=== PATIENT | male | born 1955 | race Caucasian/White ===

== ENCOUNTER 2019-01-31 09:25 | Day surgery (SDC) | payer MEDICARE ==
[2019-01-31] MEDS ORDERED: PRED5TAB PO (10:47)
[2019-01-31] MEDS ORDERED: LEVE10002 PO (10:47)
[2019-01-31] MEDS ORDERED: SIMV20TA PO (10:47)
[2019-01-31] MEDS ORDERED: FEBU40TA PO (10:47)
[2019-01-31] MEDS ORDERED: FAMO20TA20 (10:47)
[2019-01-31] MEDS ORDERED: FOLI0.4T2 PO (10:47)
[2019-01-31] MEDS ORDERED: TACR1CAP28 PO (10:47)
[2019-01-31] MEDS ORDERED: LISI-604 PO (10:47)
[2019-01-31] MEDS ORDERED: ASPI-1265 PO (10:47)
[2019-01-31] MEDS ORDERED: CARV-49 PO (10:47)
[2019-01-31] MEDS ORDERED: CHOL100046 PO (10:49)
[2019-01-31] MEDS ORDERED: CLOP75TA15 PO (10:49)
[2019-01-31] MEDS ORDERED: CALC-995 (10:49)
--- NOTE | 2019-01-31 15:24 | NUR ---
0930 Patient ambulated safely into [facility]. Patient admitted to outpatient wound care clinic for follow-up visit with physician. Dressing removed, wound cleansed. Patient assessed for changes in conditions, medications and medical history. Patient showed no s/s of distress at time of assessment. 7612 at bedside accompanied by RN. Wounds assessed, time out performed and debridement done today as detailed in the physician progress/procedure note. Plan of care discussed with patient. Dressings placed per MD orders. Patient instructed on the signs and symptoms of infection and to call the Wound Center if any occur or to go to the ED if we are closed: Increased pain in wound Increase in drainage from the wound Redness in the skin surrounding the wound Bleeding from the wound Temperature of 101 or greater Patient instructed that the weight of their body puts a large amount of pressure on their wounds. This pressure keeps the new tissue from growing and inhibits new blood vessels from forming. Explained that, if they continue to bear weight on a body part that has a wound, the time it takes to heal the wound increases, the wound may get worse or the wound may not heal at all. Patient verbalized understanding of all discharge instructions and plan of care. Patient ambulated independently out to [facility] and is in stable condition with no sign or symptom of distress at time of discharge.
== END 2019-01-31 12:00 | disposition home or self-care (01) ==
LOC: WOUND CARE 09:25
PROVIDERS: ATTEND Surgery
DX: L97.411 Non-pressure chronic ulcer of right heel and midfoot limited to breakdown of skin (principal); L97.511 Non-pressure chronic ulcer of other part of right foot limited to breakdown of skin; I77.1 Stricture of artery; I11.0 Hypertensive heart disease with heart failure; I50.9 Heart failure, unspecified; I25.2 Old myocardial infarction; M81.0 Age-related osteoporosis without current pathological fracture; M10.9 Gout, unspecified; Z95.1 Presence of aortocoronary bypass graft; Z86.73 Personal history of transient ischemic attack (TIA), and cerebral infarction without residual deficits; Z94.0 Kidney transplant status
CPT/HCPCS: 97597; A6209; A6021; A6206; A6446

== ENCOUNTER 2019-02-07 09:20 | Day surgery (SDC) | payer MEDICARE ==
[~2019-02-07 09:20] MED LIST: ASPI-1265 PO; CALC-995; CARV-49 PO; CHOL100046 PO; CLOP75TA15 PO; FAMO20TA20; FEBU40TA PO; FOLI0.4T2 PO; LEVE10002 PO; LISI-604 PO; PRED5TAB PO; SIMV20TA PO; TACR1CAP28 PO
[2019-02-07] MEDS ORDERED: LIDOcaine/PRILOcaine 5gm cream TP ONE (10:41)
--- NOTE | 2019-02-07 15:18 | NUR ---
Patient ambulated independently from lobby with a cane. Patient admitted to outpatient wound care clinic for physician visit with Sven Blanton MD. Dressing removed, wound cleansed and Emla cream applied per order. Patient assessed for changes in conditions, medications and medical history. Dr. Blanton at bedside accompanied by RN. Wound assessed, time out performed by MD/RN. Wound debrided as detailed in the physician progress/procedure note. Plan of care discussed with patient. Dressings placed per MD orders. Patient instructed on the signs and symptoms of infection and to call the Wound Center if any occur or to go to the ED if we are closed: Increased pain in wound Increase in drainage from the wound Redness in the skin surrounding the wound Bleeding from the wound Temperature of 101 or greater Patient instructed that the weight of their body puts a large amount of pressure on their wounds. This pressure keeps the new tissue from growing and inhibits new blood vessels from forming. Explained that, if they continue to bear weight on a body part that has a wound, the time it takes to heal the wound increases, the wound may get worse or the wound may not heal at all. Patient verbalized understanding of all discharge instructions and plan of care and ambulated independently out to lobby in stable condition with no sign or symptom of distress at time of discharge. Addendum: 02/07/19 at 1522 by Juju Dupree RN Amended: Links added.
== END 2019-02-07 12:12 | disposition home or self-care (01) ==
LOC: WOUND CARE 09:20
PROVIDERS: ATTEND Surgery
DX: I70.234 Atherosclerosis of native arteries of right leg with ulceration of heel and midfoot (principal); L97.411 Non-pressure chronic ulcer of right heel and midfoot limited to breakdown of skin; L97.512 Non-pressure chronic ulcer of other part of right foot with fat layer exposed; I77.1 Stricture of artery; I11.0 Hypertensive heart disease with heart failure; I50.9 Heart failure, unspecified; I25.2 Old myocardial infarction; M81.0 Age-related osteoporosis without current pathological fracture; M10.9 Gout, unspecified; Z95.1 Presence of aortocoronary bypass graft; Z86.73 Personal history of transient ischemic attack (TIA), and cerebral infarction without residual deficits; Z94.0 Kidney transplant status
CPT/HCPCS: 97597; A6021; A6206; A6446

== ENCOUNTER 2019-03-07 09:55 | Day surgery (SDC) | payer MEDICARE, BC ==
--- NOTE | 2019-03-07 12:00 | NUR ---
Patient ambulated with cane from [facility] and was admitted to outpatient wound care for physician visit with Sven Blanton MD. Dressing removed, wound cleansed and lidocaine applied per order. Patient assessed for changes in conditions, medications and medical history. 1115 - Dr. Blanton at bedside accompanied by RN. Wound assessed, time out performed by MD/RN. Wound debrided as detailed in the physician progress/procedure note. Plan of care discussed with patient. Dressings placed per MD orders. Patient instructed on the signs and symptoms of infection and to call the Wound Center if any occur or to go to the ED if we are closed: Increased pain in wound Increase in drainage from the wound Redness in the skin surrounding the wound Bleeding from the wound Temperature of 101 or greater Patient instructed that the weight of their body puts a large amount of pressure on their wounds. This pressure keeps the new tissue from growing and inhibits new blood vessels from forming. Explained that, if they continue to bear weight on a body part that has a wound, the time it takes to heal the wound increases, the wound may get worse or the wound may not heal at all. Patient verbalized understanding of all discharge instructions and plan of care and ambulated with cane out to [facility] in stable condition with no sign or symptom of distress at time of discharge.
== END 2019-03-07 12:35 | disposition home or self-care (01) ==
LOC: WOUND CARE 09:55
PROVIDERS: ATTEND Surgery
DX: I70.234 Atherosclerosis of native arteries of right leg with ulceration of heel and midfoot (principal); L97.411 Non-pressure chronic ulcer of right heel and midfoot limited to breakdown of skin; L97.512 Non-pressure chronic ulcer of other part of right foot with fat layer exposed; I77.1 Stricture of artery; I11.0 Hypertensive heart disease with heart failure; I50.9 Heart failure, unspecified; I25.2 Old myocardial infarction; M81.0 Age-related osteoporosis without current pathological fracture; M10.9 Gout, unspecified; Z95.1 Presence of aortocoronary bypass graft; Z86.73 Personal history of transient ischemic attack (TIA), and cerebral infarction without residual deficits; Z94.0 Kidney transplant status
CPT/HCPCS: 97597; A4414; A6021; A6206; A6446

== ENCOUNTER 2019-03-14 09:55 | Outpatient (CLI) | payer MEDICARE, BC ==
--- NOTE | 2019-03-14 16:26 | NUR ---
1000 Patient ambulated safely into [facility]. Patient admitted to outpatient wound care clinic for follow-up visit with physician. Dressing removed, wound cleansed. Patient assessed for changes in conditions, medications and medical history. Patient showed no s/s of distress at time of assessment. 1200 at bedside accompanied by RN. Wounds assessed, as detailed in the physician progress/procedure note. No debridement done today. Plan of care discussed with patient. Dressings placed per MD orders. 1600 [facility] Call to refer pt for pain control. No answer will finish referral in the am. Patient instructed on the signs and symptoms of infection and to call the Wound Center if any occur or to go to the ED if we are closed: Increased pain in wound Increase in drainage from the wound Redness in the skin surrounding the wound Bleeding from the wound Temperature of 101 or greater Patient instructed that the weight of their body puts a large amount of pressure on their wounds. This pressure keeps the new tissue from growing and inhibits new blood vessels from forming. Explained that, if they continue to bear weight on a body part that has a wound, the time it takes to heal the wound increases, the wound may get worse or the wound may not heal at all. 1300 Patient verbalized understanding of all discharge instructions and plan of care. Patient ambulated independently out to [facility] and is in stable condition with no sign or symptom of distress at time of discharge.
== END 2019-03-14 13:15 | disposition home or self-care (01) ==
LOC: WOUND CARE 09:55 → EDSTATUS 10:00 → WOUND CARE 13:15
PROVIDERS: ATTEND Surgery
DX: I70.234 Atherosclerosis of native arteries of right leg with ulceration of heel and midfoot (principal); L97.411 Non-pressure chronic ulcer of right heel and midfoot limited to breakdown of skin; L97.512 Non-pressure chronic ulcer of other part of right foot with fat layer exposed; I77.1 Stricture of artery; I11.0 Hypertensive heart disease with heart failure; I50.9 Heart failure, unspecified; I25.2 Old myocardial infarction; M81.0 Age-related osteoporosis without current pathological fracture; M10.9 Gout, unspecified; Z95.1 Presence of aortocoronary bypass graft; Z86.73 Personal history of transient ischemic attack (TIA), and cerebral infarction without residual deficits; Z94.0 Kidney transplant status
CPT/HCPCS: A6222; G0463; A4649; A4663; A6234; A6446

== ENCOUNTER 2019-03-21 09:50 | Day surgery (SDC) | payer MEDICARE, BC ==
[2019-03-21] MEDS ORDERED: LIDOcaine 2% 5ml jelly ONE (10:51)
[2019-03-21] MEDS ORDERED: LIDOcaine 1%/PF 5ML 10 MG/ML VIAL ONE (11:36)
--- NOTE | 2019-03-21 14:41 | NUR ---
Patient arrived safely into [facility] ambulated with cane accompanied by daughter. Patient admitted to outpatient wound care clinic for visit with Sven Blanton MD. Dressing removed, wound cleansed and lidocaine applied per order. Patient assessed and medications and medical history reviewed. Dr. Blanton at bedside accompanied by RN. Wound assessed, time out performed by MD/RN. Wound debrided as detailed in the physician progress/procedure note. Plan of care discussed with patient. Dressings placed per MD orders. Patient instructed on the signs and symptoms of infection and to call the Wound Center if any occur or to go to the ED if we are closed: Increased pain in wound Increase in drainage from the wound Redness in the skin surrounding the wound Bleeding from the wound Temperature of 101 or greater Patient instructed that the weight of their body puts a large amount of pressure on their wounds. This pressure keeps the new tissue from growing and inhibits new blood vessels from forming. Explained that, if they continue to bear weight on a body part that has a wound, the time it takes to heal the wound increases, the wound may get worse or the wound may not heal at all. Patient verbalized understanding of all discharge instructions and plan of care. Patient left in stable condition with no sign or symptom of distress at time of discharge. Addendum: 03/21/19 at 1445 by Kranthi Lundberg RN Amended: Links added.
== END 2019-03-21 12:43 | disposition home or self-care (01) ==
LOC: WOUND CARE 09:50
PROVIDERS: ATTEND Surgery
DX: I70.234 Atherosclerosis of native arteries of right leg with ulceration of heel and midfoot (principal); L97.411 Non-pressure chronic ulcer of right heel and midfoot limited to breakdown of skin; I70.235 Atherosclerosis of native arteries of right leg with ulceration of other part of foot; L97.512 Non-pressure chronic ulcer of other part of right foot with fat layer exposed; I77.1 Stricture of artery; I11.0 Hypertensive heart disease with heart failure; I50.9 Heart failure, unspecified; I25.2 Old myocardial infarction; M81.0 Age-related osteoporosis without current pathological fracture; M10.9 Gout, unspecified; Z95.1 Presence of aortocoronary bypass graft; Z86.73 Personal history of transient ischemic attack (TIA), and cerebral infarction without residual deficits; Z94.0 Kidney transplant status
CPT/HCPCS: A4663; A6021

== ENCOUNTER 2019-03-28 09:55 | Day surgery (SDC) | payer MEDICARE, BC ==
[2019-03-28] MEDS ORDERED: LIDOcaine 2% 5ml jelly ONE (11:18)
--- NOTE | 2019-03-28 15:52 | NUR ---
Patient ambulated independently from [facility] with a cane. Patient was admitted to outpatient wound care for physician visit with Sven Blanton MD. Dressing removed, wound cleansed and lidocaine applied per order. Patient assessed for changes in conditions, medications and medical history. Dr. Blanton at bedside accompanied by RN. Wound assessed, time out performed by MD/RN. Wound debrided as detailed in the physician progress/procedure note. Plan of care discussed with patient. Dressings placed per MD orders. Patient instructed on the signs and symptoms of infection and to call the Wound Center if any occur or to go to the ED if we are closed: Increased pain in wound Increase in drainage from the wound Redness in the skin surrounding the wound Bleeding from the wound Temperature of 101 or greater Patient instructed that the weight of their body puts a large amount of pressure on their wounds. This pressure keeps the new tissue from growing and inhibits new blood vessels from forming. Explained that, if they continue to bear weight on a body part that has a wound, the time it takes to heal the wound increases, the wound may get worse or the wound may not heal at all. Patient verbalized understanding of all discharge instructions and plan of care and ambulated independently out to [facility] in stable condition with no sign or symptom of distress at time of discharge. Addendum: 03/28/19 at 1554 by Juju Dupree RN Amended: Links added.
== END 2019-03-28 12:12 | disposition home or self-care (01) ==
LOC: WOUND CARE 09:55
PROVIDERS: ATTEND Surgery
DX: I70.234 Atherosclerosis of native arteries of right leg with ulceration of heel and midfoot (principal); L97.411 Non-pressure chronic ulcer of right heel and midfoot limited to breakdown of skin; I70.235 Atherosclerosis of native arteries of right leg with ulceration of other part of foot; L97.512 Non-pressure chronic ulcer of other part of right foot with fat layer exposed; I77.1 Stricture of artery; I11.0 Hypertensive heart disease with heart failure; I50.9 Heart failure, unspecified; I25.2 Old myocardial infarction; M81.0 Age-related osteoporosis without current pathological fracture; M10.9 Gout, unspecified; Z95.1 Presence of aortocoronary bypass graft; Z86.73 Personal history of transient ischemic attack (TIA), and cerebral infarction without residual deficits; Z94.0 Kidney transplant status
CPT/HCPCS: 97597; A4663; A6196; A6234; A6446

== ENCOUNTER 2019-04-04 09:42 | Outpatient (CLI) | payer MEDICARE, BC ==
[2019-04-04] MEDS ORDERED: LIDOcaine 2% 5ml jelly ONE (11:29)
== END 2019-04-04 12:45 | disposition home or self-care (01) ==
LOC: WOUND CARE 09:42 → EDSTATUS 10:00 → WOUND CARE 12:45
PROVIDERS: ATTEND Surgery
DX: I70.234 Atherosclerosis of native arteries of right leg with ulceration of heel and midfoot (principal); L97.411 Non-pressure chronic ulcer of right heel and midfoot limited to breakdown of skin; I70.235 Atherosclerosis of native arteries of right leg with ulceration of other part of foot; L97.512 Non-pressure chronic ulcer of other part of right foot with fat layer exposed; I77.1 Stricture of artery; I11.0 Hypertensive heart disease with heart failure; I50.9 Heart failure, unspecified; I25.2 Old myocardial infarction; M81.0 Age-related osteoporosis without current pathological fracture; M10.9 Gout, unspecified; Z95.1 Presence of aortocoronary bypass graft; Z86.73 Personal history of transient ischemic attack (TIA), and cerebral infarction without residual deficits; Z94.0 Kidney transplant status
CPT/HCPCS: A4663; A6212; A6234; A6446; G0463

== ENCOUNTER 2019-04-11 09:30 | Outpatient (CLI) | payer MEDICARE, BC | END 2019-04-11 13:00 | disposition home or self-care (01) | LOC: WOUND CARE 09:30 → EDSTATUS 10:00 → WOUND CARE 13:00 | PROVIDERS: ATTEND Surgery | DX: I70.234 Atherosclerosis of native arteries of right leg with ulceration of heel and midfoot (principal); L97.411 Non-pressure chronic ulcer of right heel and midfoot limited to breakdown of skin; I70.235 Atherosclerosis of native arteries of right leg with ulceration of other part of foot; L97.512 Non-pressure chronic ulcer of other part of right foot with fat layer exposed; I77.1 Stricture of artery; I11.0 Hypertensive heart disease with heart failure; I50.9 Heart failure, unspecified; I25.2 Old myocardial infarction; M81.0 Age-related osteoporosis without current pathological fracture; M10.9 Gout, unspecified; Z95.1 Presence of aortocoronary bypass graft; Z86.73 Personal history of transient ischemic attack (TIA), and cerebral infarction without residual deficits; Z94.0 Kidney transplant status | CPT/HCPCS: A4663; A6234; A6446; G0463 ==

== ENCOUNTER 2019-04-18 09:25 | Day surgery (SDC) | payer MEDICARE, BC ==
[2019-04-18] MEDS ORDERED: LIDOcaine 2% 5ml jelly ONE (09:54)
== END 2019-04-18 11:15 | disposition home or self-care (01) ==
LOC: WOUND CARE 09:25
PROVIDERS: ATTEND Surgery
DX: I70.234 Atherosclerosis of native arteries of right leg with ulceration of heel and midfoot (principal); L97.411 Non-pressure chronic ulcer of right heel and midfoot limited to breakdown of skin; I70.235 Atherosclerosis of native arteries of right leg with ulceration of other part of foot; L97.512 Non-pressure chronic ulcer of other part of right foot with fat layer exposed; I77.1 Stricture of artery; I11.0 Hypertensive heart disease with heart failure; I50.9 Heart failure, unspecified; I25.2 Old myocardial infarction; M81.0 Age-related osteoporosis without current pathological fracture; M10.9 Gout, unspecified; Z95.1 Presence of aortocoronary bypass graft; Z86.73 Personal history of transient ischemic attack (TIA), and cerebral infarction without residual deficits; Z94.0 Kidney transplant status
CPT/HCPCS: 97597; A4663; A6234; A6446

== ENCOUNTER 2019-04-25 09:40 | Day surgery (SDC) | payer MEDICARE, BC ==
[2019-04-25] MEDS ORDERED: LIDOcaine 2% 5ml jelly ONE ×2 (10:25→10:44)
== END 2019-04-25 11:21 | disposition home or self-care (01) ==
LOC: WOUND CARE 09:40
PROVIDERS: ATTEND Surgery
DX: I70.234 Atherosclerosis of native arteries of right leg with ulceration of heel and midfoot (principal); L97.412 Non-pressure chronic ulcer of right heel and midfoot with fat layer exposed; I70.235 Atherosclerosis of native arteries of right leg with ulceration of other part of foot; L97.512 Non-pressure chronic ulcer of other part of right foot with fat layer exposed; I77.1 Stricture of artery; I11.0 Hypertensive heart disease with heart failure; M81.0 Age-related osteoporosis without current pathological fracture; I50.9 Heart failure, unspecified; I25.2 Old myocardial infarction; M10.9 Gout, unspecified; Z95.1 Presence of aortocoronary bypass graft; Z86.73 Personal history of transient ischemic attack (TIA), and cerebral infarction without residual deficits; Z94.0 Kidney transplant status
CPT/HCPCS: A4663; A6021; A6154; A6212; A6446

== ENCOUNTER 2019-05-02 09:18 | Day surgery (SDC) | payer MEDICARE, BC ==
[2019-05-02] MEDS ORDERED: LIDOcaine 2% 5ml jelly ONE (10:17)
== END 2019-05-02 11:21 | disposition home or self-care (01) ==
LOC: WOUND CARE 09:18
PROVIDERS: ATTEND Surgery
DX: I70.234 Atherosclerosis of native arteries of right leg with ulceration of heel and midfoot (principal); L97.412 Non-pressure chronic ulcer of right heel and midfoot with fat layer exposed; I70.235 Atherosclerosis of native arteries of right leg with ulceration of other part of foot; L97.512 Non-pressure chronic ulcer of other part of right foot with fat layer exposed; I77.1 Stricture of artery; M81.0 Age-related osteoporosis without current pathological fracture; I50.9 Heart failure, unspecified; I25.2 Old myocardial infarction; M10.9 Gout, unspecified; Z95.1 Presence of aortocoronary bypass graft; Z86.73 Personal history of transient ischemic attack (TIA), and cerebral infarction without residual deficits; Z94.0 Kidney transplant status
CPT/HCPCS: 97597; A6209; A4663; A6154; A6446

== ENCOUNTER 2019-05-09 09:20 | Day surgery (SDC) | payer MEDICARE, BC ==
[2019-05-09] MEDS ORDERED: LIDOcaine 2% 5ml jelly ONE (09:33)
== END 2019-05-09 11:00 | disposition home or self-care (01) ==
LOC: WOUND CARE 09:20
PROVIDERS: ATTEND Surgery
DX: I70.234 Atherosclerosis of native arteries of right leg with ulceration of heel and midfoot (principal); L97.412 Non-pressure chronic ulcer of right heel and midfoot with fat layer exposed; I70.235 Atherosclerosis of native arteries of right leg with ulceration of other part of foot; L97.512 Non-pressure chronic ulcer of other part of right foot with fat layer exposed; I77.1 Stricture of artery; M81.0 Age-related osteoporosis without current pathological fracture; I11.0 Hypertensive heart disease with heart failure; I50.9 Heart failure, unspecified; I25.2 Old myocardial infarction; M10.9 Gout, unspecified; Z95.1 Presence of aortocoronary bypass graft; Z86.73 Personal history of transient ischemic attack (TIA), and cerebral infarction without residual deficits; Z94.0 Kidney transplant status
CPT/HCPCS: 97597; A6209; A4663; A6021; A6154

== ENCOUNTER 2019-05-16 09:20 | Day surgery (SDC) | payer MEDICARE, BC ==
[2019-05-16] MEDS ORDERED: LIDOcaine 2% 5ml jelly ONE (10:01)
== END 2019-05-16 11:10 | disposition home or self-care (01) ==
LOC: WOUND CARE 09:20
PROVIDERS: ATTEND Surgery
DX: I70.234 Atherosclerosis of native arteries of right leg with ulceration of heel and midfoot (principal); L97.412 Non-pressure chronic ulcer of right heel and midfoot with fat layer exposed; I70.235 Atherosclerosis of native arteries of right leg with ulceration of other part of foot; L97.512 Non-pressure chronic ulcer of other part of right foot with fat layer exposed; I77.1 Stricture of artery; M81.0 Age-related osteoporosis without current pathological fracture; I11.0 Hypertensive heart disease with heart failure; I50.9 Heart failure, unspecified; I25.2 Old myocardial infarction; M10.9 Gout, unspecified; Z95.1 Presence of aortocoronary bypass graft; Z86.73 Personal history of transient ischemic attack (TIA), and cerebral infarction without residual deficits; Z94.0 Kidney transplant status
CPT/HCPCS: 97597; A6209; A4663; A6021; A6446

== ENCOUNTER 2019-05-23 09:30 | Day surgery (SDC) | payer MEDICARE, BC ==
[2019-05-23] MEDS ORDERED: LIDOcaine 2% 5ml jelly ONE ×2 (10:07→10:55)
== END 2019-05-23 11:06 | disposition home or self-care (01) ==
LOC: WOUND CARE 09:30
PROVIDERS: ATTEND Surgery
DX: I70.234 Atherosclerosis of native arteries of right leg with ulceration of heel and midfoot (principal); L97.412 Non-pressure chronic ulcer of right heel and midfoot with fat layer exposed; I70.235 Atherosclerosis of native arteries of right leg with ulceration of other part of foot; L97.512 Non-pressure chronic ulcer of other part of right foot with fat layer exposed; I77.1 Stricture of artery; M81.0 Age-related osteoporosis without current pathological fracture; I11.0 Hypertensive heart disease with heart failure; I50.9 Heart failure, unspecified; I25.2 Old myocardial infarction; M10.9 Gout, unspecified; Z95.1 Presence of aortocoronary bypass graft; Z86.73 Personal history of transient ischemic attack (TIA), and cerebral infarction without residual deficits; Z94.0 Kidney transplant status
CPT/HCPCS: 97597; A4663; A6021; A6154; A6212; A6446

== ENCOUNTER 2019-06-06 09:30 | Day surgery (SDC) | payer MEDICARE, BC ==
[2019-06-06] MEDS ORDERED: LIDOcaine 2% 5ml jelly ONE ×2 (09:54→10:13)
== END 2019-06-06 11:05 | disposition home or self-care (01) ==
LOC: WOUND CARE 09:30
PROVIDERS: ATTEND Surgery
DX: I70.234 Atherosclerosis of native arteries of right leg with ulceration of heel and midfoot (principal); L97.412 Non-pressure chronic ulcer of right heel and midfoot with fat layer exposed; I70.235 Atherosclerosis of native arteries of right leg with ulceration of other part of foot; L97.512 Non-pressure chronic ulcer of other part of right foot with fat layer exposed; I77.1 Stricture of artery; M81.0 Age-related osteoporosis without current pathological fracture; I11.0 Hypertensive heart disease with heart failure; I50.9 Heart failure, unspecified; I25.2 Old myocardial infarction; M10.9 Gout, unspecified; Z95.1 Presence of aortocoronary bypass graft; Z86.73 Personal history of transient ischemic attack (TIA), and cerebral infarction without residual deficits; Z94.0 Kidney transplant status
CPT/HCPCS: 97597; A6209; A4663; A6021; A6154; A6446

== ENCOUNTER 2019-06-12 09:20 | Day surgery (SDC) | payer MEDICARE, BC ==
[2019-06-12] MEDS ORDERED: LIDOcaine 2% 5ml jelly ONE (10:14)
== END 2019-06-12 12:08 | disposition home or self-care (01) ==
LOC: WOUND CARE 09:20
PROVIDERS: ATTEND Surgery
DX: I70.234 Atherosclerosis of native arteries of right leg with ulceration of heel and midfoot (principal); L97.412 Non-pressure chronic ulcer of right heel and midfoot with fat layer exposed; I70.235 Atherosclerosis of native arteries of right leg with ulceration of other part of foot; L97.512 Non-pressure chronic ulcer of other part of right foot with fat layer exposed; I77.1 Stricture of artery; M81.0 Age-related osteoporosis without current pathological fracture; I11.0 Hypertensive heart disease with heart failure; I50.9 Heart failure, unspecified; I25.2 Old myocardial infarction; M10.9 Gout, unspecified; Z95.1 Presence of aortocoronary bypass graft; Z86.73 Personal history of transient ischemic attack (TIA), and cerebral infarction without residual deficits; Z94.0 Kidney transplant status
CPT/HCPCS: 15275; A6209; A6222; Q4160; A4663; A6250; A6446

== ENCOUNTER 2019-06-23 13:38 | Inpatient (IN) | payer MEDICARE, BC ==
[~2019-06-23] VITALS: Ht 175.3 cm; Wt 95.5 kg
[2019-06-23] MEDS ORDERED: normal saline 1000ML IV soln IVB ONE (14:40)
[2019-06-23 15:06] LABS: BASOPHILS % (AUTO) 0.5 % (0-1); EOSINOPHILS % (AUTO) 0.4 % (0-6); HEMATOCRIT 50.4 % (42.0-52.0); HEMOGLOBIN 16.8 g/dl (14.0-17.9); LYMPHOCYTES # (AUTO) 0.3 X10'3 (1.1-4.8); LYMPHOCYTES % (AUTO) 3.6 % (21-51); MEAN CORPUSCULAR HEMOGLOBIN 29.1 PG (27.0-31.0); MEAN CORPUSCULAR HGB CONC 33.3 g/dL (33.0-36.5); MEAN CORPUSCULAR VOLUME 87.4 FL (78-98); MEAN PLATELET VOLUME 9.9 FL (7.4-10.4); MONOCYTES # (AUTO) 0.9 X10'3 (0-0.9); NEUTROPHILS % (AUTO) 85.5 % (42-75); PLATELET COUNT 169 X10'3 (140-440); RED BLOOD COUNT 5.76 X10'6 (4.70-6.10); WHITE BLOOD COUNT 9.3 X10'3 (4.5-11.0)
[2019-06-23 15:19] LABS: ALANINE AMINOTRANSFERASE 12 U/L (12-78); ALBUMIN 3.8 G/DL (3.4-5.0); ALBUMIN/GLOBULIN RATIO 0.8 (1.1-1.5); ALKALINE PHOSPHATASE 77 IU/L (46-116); ANION GAP 17 (8-16); ASPARTATE AMINO TRANSFERASE 24 U/L (10-37); BILIRUBIN,TOTAL 0.8 MG/DL (0.1-1.0); BLOOD UREA NITROGEN 133 MG/DL (7-18); BUN/CREATININE RATIO 32.8 (5.4-32.0); CALCIUM 6.3 MG/DL (8.5-10.1); CHLORIDE 99 MMOL/L (99-107); CREATININE 4.06 MG/DL (0.60-1.10); GLUCOSE 175 MG/DL (70-104); SODIUM 136 MMOL/L (135-145); TOTAL CARBON DIOXIDE 19.6 MMOL/L (24-32); TOTAL PROTEIN 8.3 G/DL (6.4-8.2); eGFR 15 ML/MIN
[2019-06-23 15:20] LABS: ETHANOL < 0.010 GM/DL (0.0-0.010)
[2019-06-23 16:03] LABS: CLARITY,URINE CLEAR (Clear); COLOR,URINE YELLOW (Yellow); GLUCOSE, URINE NEGATIVE (Neg); KETONES,URINE NEGATIVE (Neg); LEUKOCYTE ESTERASE ,URINE NEGATIVE (Neg); NITRITES, URINE NEGATIVE (Neg); OCCULT BLOOD,URINE NEGATIVE (Neg); PROTEIN,URINE NEGATIVE (Neg); UROBILINOGEN,URINE 0.2 E.U/dL (0.2-1.0)
[2019-06-23 16:04] LABS: UA COLLECTION TYPE STRAIGHT CATH
[2019-06-23 16:17] LABS: URINE AMPHETAMINE SCREEN NEGATIVE (Neg); URINE BARBITUATE SCREEN NEGATIVE (Neg); URINE BENZODIAZEPINES SCREEN NEGATIVE (Neg); URINE CANNABINOID SCREEN POSITIVE (Neg); URINE COCAINE SCREEN NEGATIVE (Neg); URINE METHADONE SCREEN NEGATIVE (Neg); URINE OPIATE SCREEN POSITIVE (Neg); URINE PHENCYCLIDINE SCREEN NEGATIVE (Neg)
[2019-06-23 16:55] LABS: TOTAL PROTEIN,URINE RANDOM 28.7 MG/DL
[2019-06-23] MEDS: calcium carbonate 500mg tablet PO SCH ×2 (17:00→22:10)
[2019-06-23] MEDS ORDERED: acetaminophen 325mg tablet PO PRN (17:05)
[2019-06-23] MEDS ORDERED: sodium bicarbonate (8.4%) inj. 150 MEQ in dextrose 5%-water 1,000 ML IV SCH (17:05)
[2019-06-23] MEDS ORDERED: ondansetron/PF 4mg/2ml inj IV PRN (17:05)
[2019-06-23] MEDS ORDERED: FOLI0.4T2 PO (17:35)
[2019-06-23] MEDS ORDERED: FURO-150 PO (17:35)
[2019-06-23] MEDS: sodium bicarbonate (8.4%) inj. 75 MEQ in dextrose 5%-water 500 ML IV SCH ×2 (17:37→22:10)
[2019-06-23] MEDS: methylPREDNISolone sod succ 125mg/2ml vial IV SCH ×2 (17:37→23:12)
--- NOTE | 2019-06-23 19:44 | NUR ---
CALLED VIVIANA WEI [phone] FOR PAIN MED
[2019-06-23] MEDS: levetiracetam 250mg tablet PO SCH (20:06)
[2019-06-23] MEDS: carvedilol 6.25mg tablet PO SCH (20:06)
[2019-06-23] MEDS: tacrolimus anhydrous 1mg capsule PO SCH (20:07)
[2019-06-23] MEDS: heparin, porcine 5000 units/ml vial SQ SCH (20:14)
--- NOTE | 2019-06-23 20:47 | NUR ---
ESTEVAN [phone]
[2019-06-23] MEDS: FEBUXOSTAT PO SCH (21:00)
--- NOTE | 2019-06-23 21:00 | NUR ---
Patient in room [facility]. I have received report from Alejandra, ED RN and had the opportunity to ask questions and assume patient care.
[2019-06-23] MEDS: lisinopril 5mg tablet PO SCH (21:09)
[2019-06-23] MEDS: clopidogrel 75mg tablet PO SCH (21:09)
[2019-06-23 21:50] VITALS: BP 123/82
--- NOTE | 2019-06-23 22:25 | NUR ---
Talked to Joni Moreno NP regarding patient troponin series. 0HR: 0.05, 6HR: 0.06. 3HR level was missed. Okay to redraw troponin level with morning lab and cancelled 0200 draw. Pain 7/10 in right foot. Informed Joni Moreno that pt cannot take NSAIDs. Pts allergy in chart states morphine, but pt states there is no allergy.
[2019-06-23] MEDS: HYDROcodone/acetaminophen 5mg/325mg tablet PO PRN (23:11)
[2019-06-24] VITALS: BP 111/73
[2019-06-24] MEDS: sodium bicarbonate (8.4%) inj. 75 MEQ in dextrose 5%-water 500 ML IV SCH ×3 (03:00→12:50)
[2019-06-24] MEDS: HYDROcodone/acetaminophen 5mg/325mg tablet PO PRN ×2 (04:02→08:48)
[2019-06-24 05:28] LABS: HEMATOCRIT 45.8 % (42.0-52.0); HEMOGLOBIN 15.3 g/dl (14.0-17.9); MEAN CORPUSCULAR HGB CONC 33.4 g/dL (33.0-36.5)
[2019-06-24 05:32] LABS: BASOPHILS % (AUTO) 0.1 % (0-1); EOSINOPHILS % (AUTO) 0 % (0-6); LYMPHOCYTES # (AUTO) 0.1 X10'3 (1.1-4.8); LYMPHOCYTES % (AUTO) 3.6 % (21-51); MEAN CORPUSCULAR HEMOGLOBIN 29.3 PG (27.0-31.0); MEAN CORPUSCULAR VOLUME 87.8 FL (78-98); MEAN PLATELET VOLUME 9.9 FL (7.4-10.4); NEUTROPHILS # (AUTO) 3.1 X10'3 (1.8-7.7); NEUTROPHILS % (AUTO) 95.3 % (42-75); PLATELET COUNT 173 X10'3 (140-440); RED BLOOD COUNT 5.22 X10'6 (4.70-6.10); RED CELL DISTRIBUTION WIDTH 17.1 % (11.5-14.5); WHITE BLOOD COUNT 3.2 X10'3 (4.5-11.0)
[2019-06-24 05:39] LABS: ALANINE AMINOTRANSFERASE 13 U/L (12-78); ALBUMIN 3.3 G/DL (3.4-5.0); ALBUMIN/GLOBULIN RATIO 0.8 (1.1-1.5); ALKALINE PHOSPHATASE 68 IU/L (46-116); ANION GAP 14 (8-16); ASPARTATE AMINO TRANSFERASE 19 U/L (10-37); BILIRUBIN,TOTAL 0.8 MG/DL (0.1-1.0); BLOOD UREA NITROGEN 110 MG/DL (7-18); BUN/CREATININE RATIO 33.4 (5.4-32.0); CALCIUM 6.2 MG/DL (8.5-10.1); CHLORIDE 97 MMOL/L (99-107); CREATININE 3.29 MG/DL (0.60-1.10); GLUCOSE 349 MG/DL (70-104); MAGNESIUM 1.8 MG/DL (1.5-2.4); PHOSPHORUS 4.7 MG/DL (2.3-4.5); POTASSIUM 4.1 MMOL/L (3.5-5.1); SODIUM 137 MMOL/L (135-145); TOTAL CARBON DIOXIDE 26.3 MMOL/L (24-32); TOTAL PROTEIN 7.4 G/DL (6.4-8.2); TROPONIN I 0.06 NG/ML (0.0-0.05); eGFR 19 ML/MIN
--- NOTE | 2019-06-24 06:40 | NUR ---
Patient in room [facility]. I have received report from Darcie RN and Iza RN and had the opportunity to ask questions and assume patient care.
--- NOTE | 2019-06-24 06:43 | NUR ---
Problems reprioritized. Patient report given, questions answered & plan of care reviewed with SERGIO Martínez.
--- NOTE | 2019-06-24 07:25 | NUR ---
Patient in room [facility]. I have received report from lisa Henderson and had the opportunity to ask questions and assume patient care.
[2019-06-24] MEDS: methylPREDNISolone sod succ 125mg/2ml vial IV SCH ×2 (07:30→16:14)
[2019-06-24 07:40] LABS: PLATELET ESTIMATE NORMAL
[2019-06-24 07:41] LABS: GIANT PLATELET FEW; LARGE PLATELETS FEW
[2019-06-24] MEDS: aspirin 81mg tab.chew PO SCH (07:44)
[2019-06-24] MEDS: atorvastatin 20mg tablet PO SCH (07:45)
[2019-06-24] MEDS: famotidine 20mg tablet PO SCH ×3 (07:45→16:15)
[2019-06-24] MEDS: folic acid 0.4mg tablet PO SCH (07:45)
[2019-06-24] MEDS: carvedilol 6.25mg tablet PO SCH ×2 (07:46→20:10)
[2019-06-24] MEDS: vitamin D (cholecalciferol) 1,000 unit tablet PO SCH (07:47)
[2019-06-24] MEDS: levetiracetam 250mg tablet PO SCH ×2 (07:47→20:11)
[2019-06-24] MEDS: heparin, porcine 5000 units/ml vial SQ SCH ×2 (07:48→20:12)
[2019-06-24 08:00] VITALS: BP 127/78
--- NOTE | 2019-06-24 08:03 | NUR ---
Patient in room [facility]. I have received report from Darcie and had the opportunity to ask questions and assume patient care.
[2019-06-24] MEDS: tacrolimus anhydrous 1mg capsule PO SCH ×2 (08:16→20:11)
--- NOTE | 2019-06-24 10:32 | NUR ---
Student Medication Administration: For this medication-pass time frame, all medication were reviewed, dispensed, administered and documented per hospital policy by Francie nursing attendant.
[2019-06-24 11:19] VITALS: BP 107/56
--- NOTE | 2019-06-24 11:42 | NUR ---
Student documentation: I have reviewed and agree with all interventions, assessments performed and documented by Francie, nursing manager.
--- NOTE | 2019-06-24 12:06 | NUR ---
Patient report given, questions answered & plan of care reviewed with Leila nursing department chairperson.
[2019-06-24] MEDS: acetaminophen w/codeine (30MG) #3 tablet PO PRN (12:49)
--- NOTE | 2019-06-24 16:09 | NUR ---
reviewed nursing center tutor charting
[2019-06-24] MEDS: normal saline 1000ml 1,000 ML IV SCH (16:36)
[2019-06-24] MEDS: HYDROcodone/acetaminophen 10/325mg tab PO PRN (17:50)
--- NOTE | 2019-06-24 18:17 | NUR ---
Student documentation: I have reviewed and agree with all interventions, assessments performed and documented by Nat Brito.
--- NOTE | 2019-06-24 18:32 | NUR ---
Problems reprioritized. Patient report given, questions answered & plan of care reviewed with SERGIO Liao.
[2019-06-24 18:40] VITALS: BP 126/81
[2019-06-24] MEDS: calcium carbonate 500mg tablet PO SCH (20:10)
[2019-06-24] MEDS: lisinopril 5mg tablet PO SCH (20:10)
[2019-06-24] MEDS: clopidogrel 75mg tablet PO SCH (20:13)
[2019-06-24] MEDS: FEBUXOSTAT PO SCH (20:24)
[2019-06-25] VITALS: BP 114/75
[2019-06-25] MEDS: normal saline 1000ml 1,000 ML IV SCH ×2 (04:19→16:15)
[2019-06-25] MEDS: HYDROcodone/acetaminophen 10/325mg tab PO PRN ×2 (04:22→14:05)
[2019-06-25 05:00] LABS: BASOPHILS % (AUTO) 0.1 % (0-1); EOSINOPHILS % (AUTO) 0 % (0-6); HEMATOCRIT 45.8 % (42.0-52.0); LYMPHOCYTES # (AUTO) 0.2 X10'3 (1.1-4.8); LYMPHOCYTES % (AUTO) 1.9 % (21-51); MEAN CORPUSCULAR HEMOGLOBIN 29.1 PG (27.0-31.0); MEAN CORPUSCULAR HGB CONC 32.8 g/dL (33.0-36.5); MEAN CORPUSCULAR VOLUME 88.7 FL (78-98); MEAN PLATELET VOLUME 10.3 FL (7.4-10.4); MONOCYTES # (AUTO) 0.6 X10'3 (0-0.9); MONOCYTES % (AUTO) 5.1 % (2-12); NEUTROPHILS # (AUTO) 10.5 X10'3 (1.8-7.7); NEUTROPHILS % (AUTO) 92.9 % (42-75); PLATELET COUNT 195 X10'3 (140-440); RED BLOOD COUNT 5.16 X10'6 (4.70-6.10); RED CELL DISTRIBUTION WIDTH 16.9 % (11.5-14.5); WHITE BLOOD COUNT 11.3 X10'3 (4.5-11.0)
[2019-06-25 05:25] LABS: ALANINE AMINOTRANSFERASE 20 U/L (12-78); ALBUMIN 3.3 G/DL (3.4-5.0); ALBUMIN/GLOBULIN RATIO 0.8 (1.1-1.5); ALKALINE PHOSPHATASE 62 IU/L (46-116); ANION GAP 15 (8-16); ASPARTATE AMINO TRANSFERASE 28 U/L (10-37); BILIRUBIN,TOTAL 0.8 MG/DL (0.1-1.0); BLOOD UREA NITROGEN 94 MG/DL (7-18); BUN/CREATININE RATIO 30.4 (5.4-32.0); CALCIUM 6.1 MG/DL (8.5-10.1); CHLORIDE 96 MMOL/L (99-107); CREATININE 3.09 MG/DL (0.60-1.10); GLUCOSE 293 MG/DL (70-104); MAGNESIUM 1.7 MG/DL (1.5-2.4); PHOSPHORUS 4.8 MG/DL (2.3-4.5); SODIUM 141 MMOL/L (135-145); TOTAL CARBON DIOXIDE 29.6 MMOL/L (24-32); TOTAL PROTEIN 7.3 G/DL (6.4-8.2); eGFR 21 ML/MIN
[2019-06-25 05:26] LABS: POTASSIUM 3.9 MMOL/L (3.5-5.1)
--- NOTE | 2019-06-25 06:15 | NUR ---
Patient in room [facility]. I have received report from SERGIO Liao and had the opportunity to ask questions and assume patient care.
--- NOTE | 2019-06-25 06:46 | NUR ---
Patient in room [facility]. I have received report from Tanya and had the opportunity to ask questions and assume patient care. Addendum: 06/25/19 at 0647 by Mendel MORENO Amended: Links added.
--- NOTE | 2019-06-25 06:49 | NUR ---
Problems reprioritized. Patient report given, questions answered & plan of care reviewed with ZACKARY. Addendum: 06/25/19 at 0649 by Kwasi Lacy RN Amended: Links added.
[2019-06-25 07:00] VITALS: BP 107/36
[2019-06-25] MEDS: vitamin D (cholecalciferol) 1,000 unit tablet PO SCH (07:36)
[2019-06-25] MEDS: tacrolimus anhydrous 1mg capsule PO SCH ×2 (07:37→20:24)
[2019-06-25] MEDS: aspirin 81mg tab.chew PO SCH (07:37)
[2019-06-25] MEDS: levetiracetam 250mg tablet PO SCH ×2 (07:40→20:15)
[2019-06-25] MEDS: predniSONE 5mg tablet PO SCH (07:42)
[2019-06-25] MEDS: atorvastatin 20mg tablet PO SCH (07:42)
[2019-06-25] MEDS: folic acid 0.4mg tablet PO SCH (07:43)
[2019-06-25] MEDS: famotidine 20mg tablet PO SCH ×3 (07:44→16:14)
[2019-06-25] MEDS: carvedilol 6.25mg tablet PO SCH ×2 (07:45→20:14)
[2019-06-25] MEDS: heparin, porcine 5000 units/ml vial SQ SCH ×2 (07:51→20:17)
--- NOTE | 2019-06-25 08:08 | NUR ---
Student Medication Administration: For this medication-pass time frame, all medication were reviewed, dispensed, administered and documented per hospital policy by Mendel, nursing officer.
--- NOTE | 2019-06-25 10:41 | NUR ---
Student documentation: I have reviewed and agree with all interventions, assessments performed and documented by Mendel, nursing instructor.
[2019-06-25 11:00] VITALS: BP 111/57
--- NOTE | 2019-06-25 12:10 | NUR ---
Problems reprioritized. Patient report given, questions answered & plan of care reviewed with Mariza student nurse. Addendum: 06/25/19 at 1211 by Mendel MORENO Amended: Links added.
--- NOTE | 2019-06-25 14:25 | NUR ---
Malnutrition consult: Multiple unsuccessful attempts with pt at bedside d/t pt being unavailable. RD briefly saw pt and there was no noted visible fat or muscle wasting. Patient currently with an overweight BMI using scaled weight with no documented wt hx. Pt currently on renal diet with documented average 75-100% PO intake likely meeting nutrient needs. No decrease in muscle strength or edema. Pt currently lacks a minimum of two criteria for malnutrition. Will continue to follow. Addendum: 06/25/19 at [address] Amended: Links added.
--- NOTE | 2019-06-25 17:01 | NUR ---
REVIEWED VEGETABLE CANNER CHARTING
[2019-06-25] MEDS ORDERED: amiodarone 150mg/dext, iso-os 100 ML IV ONE ×2 (18:05→19:40)
[2019-06-25] MEDS ORDERED: amiodarone/D5 360MG/200ML BAG 200 ML IV SCH (18:05)
--- NOTE | 2019-06-25 18:36 | NUR ---
9 beat run of V Tach called in by tele chambers. Patient was resting at this time. Vitals as follows BP 99/67 HR 72 96% RA, RR 16. Dr. Oglesby notified and he gave orders for patient to be sent to PCU on Amiodarone.
--- NOTE | 2019-06-25 18:40 | NUR ---
Received report from SERGIO Martínez. Patient is awake and alert on room air, in no apparent distress. Call light and items of frequent use within reach. Will continue to monitor.
--- NOTE | 2019-06-25 18:44 | NUR ---
Problems reprioritized. Patient report given, questions answered & plan of care reviewed with SERGIO Wilson.
[2019-06-25 20:00] VITALS: BP 121/81
[2019-06-25] MEDS: lisinopril 5mg tablet PO SCH (20:15)
[2019-06-25] MEDS: clopidogrel 75mg tablet PO SCH (20:16)
[2019-06-25] MEDS: calcium carbonate 500mg tablet PO SCH (20:16)
[2019-06-25] MEDS: FEBUXOSTAT PO SCH (20:17)
[2019-06-25] MEDS: HYDROcodone/acetaminophen 5mg/325mg tablet PO PRN (20:28)
--- NOTE | 2019-06-25 20:44 | NUR ---
Called Telemetry Charge Nurse SERGIO Lagunas to verify Joni Moreno NP's orders. SERGIO Lagunas reiterated that EVENS Moreno said to discontinue all amiodarone IV as they are "not needed." Will continue to assess and monitor patient throughout.
[2019-06-26] VITALS: BP 110/83
[2019-06-26 04:11] LABS: BASOPHILS % (AUTO) 0 % (0-1); EOSINOPHILS % (AUTO) 0 % (0-6); HEMATOCRIT 41.6 % (42.0-52.0); HEMOGLOBIN 13.4 g/dl (14.0-17.9); LYMPHOCYTES # (AUTO) 0.3 X10'3 (1.1-4.8); LYMPHOCYTES % (AUTO) 2.2 % (21-51); MEAN CORPUSCULAR HGB CONC 32.2 g/dL (33.0-36.5); MEAN CORPUSCULAR VOLUME 89.9 FL (78-98); MONOCYTES # (AUTO) 1.1 X10'3 (0-0.9); MONOCYTES % (AUTO) 7.8 % (2-12); NEUTROPHILS # (AUTO) 12.2 X10'3 (1.8-7.7); PLATELET COUNT 159 X10'3 (140-440); RED BLOOD COUNT 4.63 X10'6 (4.70-6.10); RED CELL DISTRIBUTION WIDTH 17.1 % (11.5-14.5); WHITE BLOOD COUNT 13.5 X10'3 (4.5-11.0)
[2019-06-26 04:18] LABS: ALANINE AMINOTRANSFERASE 16 U/L (12-78); ALBUMIN/GLOBULIN RATIO 0.9 (1.1-1.5); ALKALINE PHOSPHATASE 54 IU/L (46-116); ANION GAP 7 (8-16); ASPARTATE AMINO TRANSFERASE 22 U/L (10-37); BILIRUBIN,TOTAL 0.9 MG/DL (0.1-1.0); BLOOD UREA NITROGEN 69 MG/DL (7-18); BUN/CREATININE RATIO 32.5 (5.4-32.0); CALCIUM 6.4 MG/DL (8.5-10.1); CHLORIDE 102 MMOL/L (99-107); CREATININE 2.12 MG/DL (0.60-1.10); GLUCOSE 170 MG/DL (70-104); POTASSIUM 3.7 MMOL/L (3.5-5.1); SODIUM 144 MMOL/L (135-145); TOTAL CARBON DIOXIDE 34.6 MMOL/L (24-32); TOTAL PROTEIN 6.4 G/DL (6.4-8.2); eGFR 32 ML/MIN
[2019-06-26 04:21] LABS: MAGNESIUM 1.6 MG/DL (1.5-2.4); PHOSPHORUS 3.8 MG/DL (2.3-4.5)
[2019-06-26] MEDS: normal saline 1000ml 1,000 ML IV SCH (04:38)
[2019-06-26 07:00] VITALS: BP 142/94
[2019-06-26] MEDS: levetiracetam 250mg tablet PO SCH ×2 (07:53→21:43)
[2019-06-26] MEDS: tacrolimus anhydrous 1mg capsule PO SCH ×2 (07:53→21:43)
[2019-06-26] MEDS: atorvastatin 20mg tablet PO SCH (07:53)
[2019-06-26] MEDS: predniSONE 5mg tablet PO SCH (07:53)
[2019-06-26] MEDS: aspirin 81mg tab.chew PO SCH (07:54)
[2019-06-26] MEDS: carvedilol 6.25mg tablet PO SCH ×2 (07:54→21:44)
[2019-06-26] MEDS: famotidine 20mg tablet PO SCH ×3 (07:54→16:14)
[2019-06-26] MEDS: folic acid 0.4mg tablet PO SCH (07:54)
[2019-06-26] MEDS: heparin, porcine 5000 units/ml vial SQ SCH ×2 (07:55→21:45)
--- NOTE | 2019-06-26 08:45 | NUR ---
Student Medication Administration: For this medication-pass time frame, all medication were reviewed, dispensed, administered and documented per hospital policy by Libia GUTIERREZ [facility].
[2019-06-26] MEDS: vitamin D (cholecalciferol) 1,000 unit tablet PO SCH (08:51)
[2019-06-26 11:00] VITALS: BP 126/91
[2019-06-26] MEDS: HYDROcodone/acetaminophen 5mg/325mg tablet PO PRN (12:54)
--- NOTE | 2019-06-26 18:00 | NUR ---
Problems reprioritized. Patient report given, questions answered & plan of care reviewed with SERGIO Pichardo.
[2019-06-26 20:00] VITALS: BP 126/76
[2019-06-26] MEDS: clopidogrel 75mg tablet PO SCH (21:43)
[2019-06-26] MEDS: calcium carbonate 500mg tablet PO SCH (21:45)
[2019-06-26] MEDS: lisinopril 5mg tablet PO SCH (21:45)
[2019-06-26] MEDS: FEBUXOSTAT PO SCH (21:46)
[2019-06-26] MEDS: HYDROcodone/acetaminophen 10/325mg tab PO PRN (21:51)
[2019-06-27] VITALS: BP 146/108
[2019-06-27] MEDS: LORazepam 0.5 MG tablet PO PRN (01:00)
[2019-06-27] MEDS: HYDROcodone/acetaminophen 10/325mg tab PO PRN ×2 (02:26→08:04)
--- NOTE | 2019-06-27 03:00 | NUR ---
Patient confused. Getting in and out of bed, and is becoming super weak, anxious and SOB. Patient noncompliant with using call light for assistance. VERY HIGH RISK. Ativan given with no effective. Patient moved from 356b to 358a with a sitter. Joni Moreno notified of patient's change in mentation and new order for sitter.
[2019-06-27 04:52] LABS: BASOPHILS # (AUTO) 0.1 X10'3 (0-0.2); EOSINOPHILS % (AUTO) 0.1 % (0-6); HEMOGLOBIN 13.7 g/dl (14.0-17.9)
[2019-06-27 04:55] LABS: BASOPHILS % (AUTO) 0.3 % (0-1); HEMATOCRIT 42.1 % (42.0-52.0); LYMPHOCYTES # (AUTO) 0.4 X10'3 (1.1-4.8); LYMPHOCYTES % (AUTO) 1.8 % (21-51); MEAN CORPUSCULAR HEMOGLOBIN 29.5 PG (27.0-31.0); MEAN CORPUSCULAR HGB CONC 32.6 g/dL (33.0-36.5); MEAN CORPUSCULAR VOLUME 90.5 FL (78-98); MEAN PLATELET VOLUME 10.1 FL (7.4-10.4); MONOCYTES # (AUTO) 0.7 X10'3 (0-0.9); MONOCYTES % (AUTO) 3.4 % (2-12); NEUTROPHILS # (AUTO) 18.9 X10'3 (1.8-7.7); NEUTROPHILS % (AUTO) 94.4 % (42-75); PLATELET COUNT 147 X10'3 (140-440); RED BLOOD COUNT 4.65 X10'6 (4.70-6.10); RED CELL DISTRIBUTION WIDTH 16.7 % (11.5-14.5)
[2019-06-27 05:18] LABS: ALANINE AMINOTRANSFERASE 20 U/L (12-78); ALBUMIN 3.1 G/DL (3.4-5.0); ALBUMIN/GLOBULIN RATIO 0.9 (1.1-1.5); ALKALINE PHOSPHATASE 78 IU/L (46-116); ANION GAP 12 (8-16); ASPARTATE AMINO TRANSFERASE 38 U/L (10-37); BILIRUBIN,TOTAL 1.5 MG/DL (0.1-1.0); BLOOD UREA NITROGEN 44 MG/DL (7-18); BUN/CREATININE RATIO 19.3 (5.4-32.0); CALCIUM 6.3 MG/DL (8.5-10.1); CHLORIDE 103 MMOL/L (99-107); CREATININE 2.28 MG/DL (0.60-1.10); GLUCOSE 158 MG/DL (70-104); MAGNESIUM 1.3 MG/DL (1.5-2.4); PHOSPHORUS 2.8 MG/DL (2.3-4.5); POTASSIUM 3.3 MMOL/L (3.5-5.1); SODIUM 146 MMOL/L (135-145); TOTAL PROTEIN 6.6 G/DL (6.4-8.2); eGFR 29 ML/MIN
[2019-06-27 06:22] LABS: TOTAL CELLS COUNTED 100
[2019-06-27 06:23] LABS: ANISOCYTOSIS 1+; PLATELET ESTIMATE NORMAL; POLYCHROMASIA FEW; TOXIC VACUOLATION 1+
[2019-06-27 06:24] LABS: LARGE PLATELETS FEW
--- NOTE | 2019-06-27 06:54 | NUR ---
Patient in room [facility]. I have received report from Kylee HILL and had the opportunity to ask questions and assume patient care.
--- NOTE | 2019-06-27 06:58 | NUR ---
Patient in room [facility]. I have received report from ЕКАТЕРИНА HILL and had the opportunity to ask questions and assume patient care.
[2019-06-27] MEDS: famotidine 20mg tablet PO SCH ×3 (07:45→17:45)
[2019-06-27] MEDS: aspirin 81mg tab.chew PO SCH (07:45)
[2019-06-27] MEDS: predniSONE 5mg tablet PO SCH (07:46)
[2019-06-27] MEDS: carvedilol 6.25mg tablet PO SCH ×2 (07:46→19:08)
[2019-06-27] MEDS: atorvastatin 20mg tablet PO SCH (07:46)
[2019-06-27] MEDS: folic acid 0.4mg tablet PO SCH (07:46)
[2019-06-27] MEDS: vitamin D (cholecalciferol) 1,000 unit tablet PO SCH (07:46)
[2019-06-27] MEDS: levetiracetam 250mg tablet PO SCH ×2 (07:47→19:08)
[2019-06-27] MEDS: heparin, porcine 5000 units/ml vial SQ SCH ×2 (07:47→19:09)
[2019-06-27 08:00] VITALS: BP 112/76
[2019-06-27] MEDS ORDERED: magnesium 4gm in 100ml NS 100 ML IV PRN (09:25)
[2019-06-27] MEDS ORDERED: potassium CL 10mEq/100ml bag 100 ML IV PRN (09:25)
[2019-06-27] MEDS ORDERED: potassium Cl 20 mEq SR tablet PO PRN (09:25)
[2019-06-27] MEDS ORDERED: magnesium 2GM in 50ml NS 50 ML IV PRN (09:25)
[2019-06-27] MEDS: magnesium Cl slow-release 64mg tablet PO PRN (10:24)
[2019-06-27] MEDS: potassium Cl 20 mEq SR tablet PO PRN ×3 (10:24→19:08)
[2019-06-27] MEDS: tacrolimus anhydrous 1mg capsule PO SCH ×2 (10:25→19:09)
[2019-06-27 12:00] VITALS: BP 109/85
--- NOTE | 2019-06-27 15:07 | NUR ---
Initial: Pt admit with c/o worsening of overall condition. PMH includes renal transplant. 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 Per WOC notes pt with arterial wounds with stable eschar present to right 2nd and left 4th toes as well as full thickness arterial ulcer to right heel. Pt currently on renal diet documented with overall 75-100% PO intake meeting nutrient needs. [facility] 06/26. No nutrition diagnosis at this time. Will continue to follow. Recommendations: 1) Continue renal diet 2) Monitor need for ONS 3) Bowel care 4) Wt per rx Addendum: 06/27/19 at [address] Amended: Links added.
[2019-06-27 17:20] LABS: CLARITY,URINE CLOUDY (Clear); GLUCOSE, URINE 250 mg/dl (Neg); KETONES,URINE 15 mg/dl (Neg); LEUKOCYTE ESTERASE ,URINE NEGATIVE (Neg); NITRITES, URINE NEGATIVE (Neg); OCCULT BLOOD,URINE MODERATE (Neg); PROTEIN,URINE 100 mg/dl (Neg)
[2019-06-27 17:38] LABS: COLOR,URINE DARK YELLOW (Yellow); UA COLLECTION TYPE CLN CATCH MIDSTREAM
[2019-06-27 17:43] LABS: AMORPHOUS URATES 4+; BACTERIA,URINE FEW /HPF (Neg); HYALINE CASTS 0-3 /LPF (NEGATIVE); MUCUS STRANDS MANY /LPF (Neg); SQUAMOUS EPITHELIAL CELL,UR FEW /LPF (FEW); TRANSITIONAL EPI CELLS,URINE FEW /HPF; WBC,URINE NONE SEEN /HPF (0-4)
[2019-06-27] MEDS ORDERED: vancomycin/NS 1 GM ADD-VANTAGE 250 ML IV SCH (18:00)
[2019-06-27] MEDS ORDERED: aztreonam inj. 1,000 MG in normal saline 100ml IV soln 100 ML IV SCH (18:00)
--- NOTE | 2019-06-27 18:24 | NUR ---
Problems reprioritized. Patient report given, questions answered & plan of care reviewed with Katie HILL.
[2019-06-27 20:00] VITALS: BP 118/91
[2019-06-27] MEDS: FEBUXOSTAT PO SCH (20:42)
[2019-06-27] MEDS: calcium carbonate 500mg tablet PO SCH (20:42)
[2019-06-27] MEDS: clopidogrel 75mg tablet PO SCH (20:42)
[2019-06-27] MEDS: lisinopril 5mg tablet PO SCH (20:42)
[2019-06-27] MEDS: aztreonam inj. 1,000 MG in normal saline 100ml IV soln 100 ML IV SCH (20:42)
[2019-06-28] VITALS: BP 156/74
[2019-06-28 05:47] LABS: EOSINOPHILS % (AUTO) 0.1 % (0-6); LYMPHOCYTES # (AUTO) 0.2 X10'3 (1.1-4.8); MONOCYTES # (AUTO) 0.5 X10'3 (0-0.9); MONOCYTES % (AUTO) 3.6 % (2-12); NEUTROPHILS # (AUTO) 13.4 X10'3 (1.8-7.7); NEUTROPHILS % (AUTO) 94.7 % (42-75); WHITE BLOOD COUNT 14.1 X10'3 (4.5-11.0)
[2019-06-28 05:50] LABS: BASOPHILS # (AUTO) 0.1 X10'3 (0-0.2); BASOPHILS % (AUTO) 0.4 % (0-1); HEMATOCRIT 42.8 % (42.0-52.0); HEMOGLOBIN 13.6 g/dl (14.0-17.9); LYMPHOCYTES % (AUTO) 1.2 % (21-51); MEAN CORPUSCULAR HEMOGLOBIN 28.7 PG (27.0-31.0); MEAN CORPUSCULAR HGB CONC 31.8 g/dL (33.0-36.5); MEAN CORPUSCULAR VOLUME 90.4 FL (78-98); MEAN PLATELET VOLUME 10.1 FL (7.4-10.4); PLATELET COUNT 116 X10'3 (140-440); RED BLOOD COUNT 4.73 X10'6 (4.70-6.10); RED CELL DISTRIBUTION WIDTH 17.1 % (11.5-14.5)
[2019-06-28 06:07] LABS: ALANINE AMINOTRANSFERASE 14 U/L (12-78); ALBUMIN 2.8 G/DL (3.4-5.0); ALBUMIN/GLOBULIN RATIO 0.7 (1.1-1.5); ALKALINE PHOSPHATASE 70 IU/L (46-116); ANION GAP 15 (8-16); ASPARTATE AMINO TRANSFERASE 23 U/L (10-37); BILIRUBIN,TOTAL 1.2 MG/DL (0.1-1.0); BLOOD UREA NITROGEN 55 MG/DL (7-18); BUN/CREATININE RATIO 21.4 (5.4-32.0); CALCIUM 6.6 MG/DL (8.5-10.1); CHLORIDE 98 MMOL/L (99-107); CREATININE 2.57 MG/DL (0.60-1.10); GLUCOSE 168 MG/DL (70-104); MAGNESIUM 1.4 MG/DL (1.5-2.4); PHOSPHORUS 3.1 MG/DL (2.3-4.5); POTASSIUM 4.4 MMOL/L (3.5-5.1); SODIUM 137 MMOL/L (135-145); TOTAL CARBON DIOXIDE 23.8 MMOL/L (24-32); TOTAL PROTEIN 6.9 G/DL (6.4-8.2); eGFR 26 ML/MIN
--- NOTE | 2019-06-28 06:28 | NUR ---
Problems reprioritized. Patient report given, questions answered & plan of care reviewed with SERGIO Abreu.
--- NOTE | 2019-06-28 06:43 | NUR ---
Patient in room [facility]. I have received report from SERGIO Wilson and had the opportunity to ask questions and assume patient care.
[2019-06-28 07:24] VITALS: BP 126/97
[2019-06-28] MEDS ORDERED: SIMETHICONE/SOD BICARB/CIT AC PACKET PO ONE (08:00)
[2019-06-28] MEDS ORDERED: BARIUM SULFATE 340 ML SUSP.RECON***PROCEDURE AREA ONLY**DONT ENTER PO ONE (08:00)
[2019-06-28] MEDS: levetiracetam 250mg tablet PO SCH ×2 (08:25→20:31)
[2019-06-28] MEDS: magnesium Cl slow-release 64mg tablet PO PRN (08:25)
[2019-06-28] MEDS: HYDROcodone/acetaminophen 10/325mg tab PO PRN (08:25)
[2019-06-28] MEDS: famotidine 20mg tablet PO SCH ×3 (08:26→17:14)
[2019-06-28] MEDS: vitamin D (cholecalciferol) 1,000 unit tablet PO SCH (08:26)
[2019-06-28] MEDS: aspirin 81mg tab.chew PO SCH (08:26)
[2019-06-28] MEDS: atorvastatin 20mg tablet PO SCH (08:26)
[2019-06-28] MEDS: folic acid 0.4mg tablet PO SCH (08:26)
[2019-06-28] MEDS: carvedilol 6.25mg tablet PO SCH ×2 (08:26→20:32)
[2019-06-28] MEDS: predniSONE 5mg tablet PO SCH (08:26)
[2019-06-28] MEDS: heparin, porcine 5000 units/ml vial SQ SCH ×2 (08:27→20:32)
[2019-06-28] MEDS: tacrolimus anhydrous 1mg capsule PO SCH ×2 (08:27→20:33)
[2019-06-28 11:30] VITALS: BP 112/84
--- NOTE | 2019-06-28 15:03 | NUR ---
Pt back from GI series
[2019-06-28 18:00] VITALS: BP 113/93
--- NOTE | 2019-06-28 18:33 | NUR ---
Problems reprioritized. Patient report given, questions answered & plan of care reviewed with SERGIO Arshad.
--- NOTE | 2019-06-28 18:43 | NUR ---
Received report from Lois HILL pt is awake on RA asking for a drink of water in no apparent distress, call light and items of freq use within reach.
[2019-06-28] MEDS: VANCOmycin 1250MG/NS 250ml Bag 250 ML IV SCH (19:05)
[2019-06-28] MEDS: clopidogrel 75mg tablet PO SCH (20:31)
[2019-06-28] MEDS: lisinopril 5mg tablet PO SCH (20:32)
[2019-06-28] MEDS: FEBUXOSTAT PO SCH (20:33)
[2019-06-28] MEDS: aztreonam inj. 1,000 MG in normal saline 100ml IV soln 100 ML IV SCH (20:55)
[2019-06-28] MEDS: calcium carbonate 500mg tablet PO SCH (21:00)
[2019-06-29 00:16] VITALS: BP 124/96
[2019-06-29] MEDS: HYDROcodone/acetaminophen 10/325mg tab PO PRN ×3 (00:29→21:38)
--- NOTE | 2019-06-29 06:25 | NUR ---
Patient in room [facility]. I have received report from SERGIO Arshad and had the opportunity to ask questions and assume patient care.
--- NOTE | 2019-06-29 06:28 | NUR ---
Problems reprioritized. Patient report given, questions answered & plan of care reviewed with Tanya HILL.
[2019-06-29 06:59] VITALS: BP 109/76
[2019-06-29] MEDS: vitamin D (cholecalciferol) 1,000 unit tablet PO SCH (08:00)
[2019-06-29] MEDS: folic acid 0.4mg tablet PO SCH (08:07)
[2019-06-29] MEDS: levetiracetam 250mg tablet PO SCH ×2 (08:07→21:28)
[2019-06-29] MEDS: carvedilol 6.25mg tablet PO SCH ×2 (08:07→21:29)
[2019-06-29] MEDS: aspirin 81mg tab.chew PO SCH (08:07)
[2019-06-29] MEDS: atorvastatin 20mg tablet PO SCH (08:07)
[2019-06-29] MEDS: famotidine 20mg tablet PO SCH ×3 (08:07→17:21)
[2019-06-29] MEDS: predniSONE 5mg tablet PO SCH (08:07)
[2019-06-29] MEDS: tacrolimus anhydrous 1mg capsule PO SCH ×2 (08:07→21:28)
[2019-06-29] MEDS: heparin, porcine 5000 units/ml vial SQ SCH ×2 (08:09→21:29)
[2019-06-29] MEDS: docusate sod 100mg capsule PO PRN (08:13)
[2019-06-29 11:00] VITALS: BP 132/92
[2019-06-29] MEDS: HYDROcodone/acetaminophen 5mg/325mg tablet PO PRN (13:10)
[2019-06-29] MEDS ORDERED: proMETHazine 25mg tablet PO PRN (14:20)
[2019-06-29] MEDS: ESCITALOPRAM OXALATE 5 MG TABLET PO SCH (14:39)
--- NOTE | 2019-06-29 18:26 | NUR ---
Problems reprioritized. Patient report given, questions answered & plan of care reviewed with SERGIO Sellers.
[2019-06-29 19:00] VITALS: BP_SYST 116; BP_SYST 97; BP_DIAS 57; BP_DIAS 69
--- NOTE | 2019-06-29 19:00 | NUR ---
Patient in room [facility] 358. I have received report from Tanya HILL and had the opportunity to ask questions and assume patient care. Addendum: 06/30/19 at 0537 by Verito Rodney RN Amended: Links added.
[2019-06-29] MEDS: calcium carbonate 500mg tablet PO SCH (21:17)
[2019-06-29] MEDS: lisinopril 5mg tablet PO SCH (21:17)
[2019-06-29] MEDS: clopidogrel 75mg tablet PO SCH (21:18)
[2019-06-29] MEDS: VANCOmycin 1250MG/NS 250ml Bag 250 ML IV SCH (21:18)
[2019-06-29] MEDS: FEBUXOSTAT PO SCH (21:30)
[2019-06-29] MEDS: aztreonam inj. 1,000 MG in normal saline 100ml IV soln 100 ML IV SCH (23:09)
--- NOTE | 2019-06-29 23:30 | NUR ---
PT HAS A LEFT FEMORAL SHEATH WITH TPA AND HEPARIN INFUSING AT SET RATES PER MD CONNORS. THERE IS NO PULSE IN THE RIGHT FOOT, FOOT IS PALE AND COOL TO TOUCH- MD AWARE. FEMSTOP ON RIGHT TIBIAL ARTERY WITH NO BLEEDING OF OOZING. LEFT GROIN IS CLEAR AND WITHOUT HEMATOMA, PULSES ON THE LEFT FOOT ARE FOUND VIA DOPPLER. Addendum: 07/18/19 at 0008 by Annette Cintron RN ERROR WRONG DATE ENTRY
[2019-06-30] VITALS: BP 121/90
--- NOTE | 2019-06-30 06:00 | NUR ---
Problems reprioritized. Patient report given, questions answered & plan of care reviewed with Tanya HILL. Addendum: 06/30/19 at 0650 by Verito Rodney RN Amended: Links added.
--- NOTE | 2019-06-30 06:26 | NUR ---
Patient in room [facility]. I have received report from SERGIO Sellers and had the opportunity to ask questions and assume patient care.
[2019-06-30 07:00] VITALS: BP 146/69
[2019-06-30] MEDS: vitamin D (cholecalciferol) 1,000 unit tablet PO SCH (08:00)
[2019-06-30] MEDS: carvedilol 6.25mg tablet PO SCH ×2 (08:15→20:09)
[2019-06-30] MEDS: famotidine 20mg tablet PO SCH ×3 (08:15→16:36)
[2019-06-30] MEDS: aspirin 81mg tab.chew PO SCH (08:15)
[2019-06-30] MEDS: ESCITALOPRAM OXALATE 5 MG TABLET PO SCH (08:16)
[2019-06-30] MEDS: levetiracetam 250mg tablet PO SCH ×2 (08:16→20:02)
[2019-06-30] MEDS: atorvastatin 20mg tablet PO SCH (08:16)
[2019-06-30] MEDS: folic acid 0.4mg tablet PO SCH (08:16)
[2019-06-30] MEDS: predniSONE 5mg tablet PO SCH (08:16)
[2019-06-30] MEDS: heparin, porcine 5000 units/ml vial SQ SCH ×2 (08:17→20:03)
[2019-06-30] MEDS: tacrolimus anhydrous 1mg capsule PO SCH ×2 (09:53→20:04)
[2019-06-30 11:00] VITALS: BP 123/84
--- NOTE | 2019-06-30 17:00 | NUR ---
Patient refused to have his right heel dressing taken down and a picture being taken. The dressing was changed yesterday and wouldn't be due for a change until tomorrow. Patient stated he does not want a dressing taken off today. Primary nurse was able to take pictures of bilateral toes just not the right heel.
--- NOTE | 2019-06-30 18:29 | NUR ---
Problems reprioritized. Patient report given, questions answered & plan of care reviewed with SERGIO Pichardo.
[2019-06-30 20:00] VITALS: BP 129/93
[2019-06-30] MEDS: clopidogrel 75mg tablet PO SCH (20:02)
[2019-06-30] MEDS: FEBUXOSTAT PO SCH (20:03)
[2019-06-30] MEDS: lisinopril 5mg tablet PO SCH (20:03)
[2019-06-30] MEDS: aztreonam inj. 1,000 MG in normal saline 100ml IV soln 100 ML IV SCH (20:06)
[2019-06-30] MEDS: HYDROcodone/acetaminophen 10/325mg tab PO PRN (20:09)
[2019-06-30] MEDS ORDERED: barium sulfate 450ml oral suspension PO ONE (21:00)
[2019-06-30] MEDS: calcium carbonate 500mg tablet PO SCH (21:00)
[2019-07-01] VITALS: BP 99/67
[2019-07-01] MEDS ORDERED: barium sulfate 450ml oral suspension PO ONE ×2 (01:00→08:00)
[2019-07-01 04:50] LABS: BASOPHILS % (AUTO) 0.2 % (0-1); EOSINOPHILS % (AUTO) 0.2 % (0-6); HEMATOCRIT 37.3 % (42.0-52.0); HEMOGLOBIN 12.3 g/dl (14.0-17.9); LYMPHOCYTES # (AUTO) 0.2 X10'3 (1.1-4.8); LYMPHOCYTES % (AUTO) 2.2 % (21-51); MEAN CORPUSCULAR HEMOGLOBIN 29.2 PG (27.0-31.0); MEAN CORPUSCULAR HGB CONC 32.9 g/dL (33.0-36.5); MEAN PLATELET VOLUME 10.3 FL (7.4-10.4); MONOCYTES # (AUTO) 0.7 X10'3 (0-0.9); MONOCYTES % (AUTO) 6.5 % (2-12); NEUTROPHILS # (AUTO) 9.7 X10'3 (1.8-7.7); NEUTROPHILS % (AUTO) 90.9 % (42-75); PLATELET COUNT 139 X10'3 (140-440); RED CELL DISTRIBUTION WIDTH 16.5 % (11.5-14.5); WHITE BLOOD COUNT 10.7 X10'3 (4.5-11.0)
[2019-07-01 05:03] LABS: ALANINE AMINOTRANSFERASE 17 U/L (12-78); ALBUMIN 2.1 G/DL (3.4-5.0); ALKALINE PHOSPHATASE 96 IU/L (46-116); ANION GAP 11 (8-16); ASPARTATE AMINO TRANSFERASE 31 U/L (10-37); BILIRUBIN,TOTAL 1.1 MG/DL (0.1-1.0); BLOOD UREA NITROGEN 79 MG/DL (7-18); BUN/CREATININE RATIO 28.9 (5.4-32.0); CALCIUM 6.9 MG/DL (8.5-10.1); CHLORIDE 98 MMOL/L (99-107); CREATININE 2.73 MG/DL (0.60-1.10); GLUCOSE 182 MG/DL (70-104); MAGNESIUM 1.5 MG/DL (1.5-2.4); PHOSPHORUS 4.9 MG/DL (2.3-4.5); POTASSIUM 4.7 MMOL/L (3.5-5.1); SODIUM 133 MMOL/L (135-145); TOTAL CARBON DIOXIDE 24.3 MMOL/L (24-32); eGFR 24 ML/MIN
[2019-07-01] MEDS: HYDROcodone/acetaminophen 10/325mg tab PO PRN (05:14)
[2019-07-01 05:22] LABS: ALBUMIN/GLOBULIN RATIO 0.6 (1.1-1.5); TOTAL PROTEIN 5.7 G/DL (6.4-8.2)
--- NOTE | 2019-07-01 07:06 | NUR ---
Patient in room [facility]. I have received report from Kylee HILL and had the opportunity to ask questions and assume patient care.
[2019-07-01 08:00] VITALS: BP 113/83
[2019-07-01] MEDS: vitamin D (cholecalciferol) 1,000 unit tablet PO SCH (08:00)
[2019-07-01] MEDS: heparin, porcine 5000 units/ml vial SQ SCH ×2 (08:00→20:27)
[2019-07-01] MEDS: tacrolimus anhydrous 1mg capsule PO SCH ×2 (08:00→20:29)
--- NOTE | 2019-07-01 09:30 | NUR ---
Pt refused to change wound dressing and take pictures. He said maybe later but Dr. Blanton only changes dressing on Wednesdays so he wanted to wait until then.
[2019-07-01 11:00] VITALS: BP_SYST 104; BP_SYST 159; BP_DIAS 78; BP_DIAS 89
[2019-07-01] MEDS: famotidine 20mg tablet PO SCH ×3 (11:47→17:00)
[2019-07-01] MEDS: aspirin 81mg tab.chew PO SCH (11:47)
[2019-07-01] MEDS: carvedilol 6.25mg tablet PO SCH ×2 (11:47→20:28)
[2019-07-01] MEDS: levetiracetam 250mg tablet PO SCH ×2 (11:48→20:28)
[2019-07-01] MEDS: HYDROcodone/acetaminophen 5mg/325mg tablet PO PRN ×2 (11:48→20:43)
[2019-07-01] MEDS: atorvastatin 20mg tablet PO SCH (11:48)
[2019-07-01] MEDS: ESCITALOPRAM OXALATE 5 MG TABLET PO SCH (11:48)
[2019-07-01] MEDS: predniSONE 5mg tablet PO SCH (11:48)
[2019-07-01] MEDS: folic acid 0.4mg tablet PO SCH (11:49)
--- NOTE | 2019-07-01 13:30 | NUR ---
Spoke to Dr Evans, pt has only urinated 70ml of urine since start of shift. Dr evans was not concerned about the urine output. Said it was OK.
--- NOTE | 2019-07-01 14:30 | NUR ---
Pt refused to change dressing am/pm because he insisted that Dr. simons only changes dressings on Wednesdays so he wanted to wait until then. Addendum: 07/01/19 at 2 by Kaylene Godinez RN Amended: Links added.
--- NOTE | 2019-07-01 16:40 | NUR ---
reassessment: Pt PO decreased to 0-25% past 4 days noted to have abdominal pain. CT shows diverticulosis along w/ fat stranding; internal hernia with abscess as well as possible small bowel perforation. Pending GI surgeon consult at this time. Pt PO 75% avg meals initially on admit meeting needs. LBM 06/30 having routine BM's. UGI exam shows gastritis as well per MD note. Prerenal to continue hydration per MD note. Will continue to monitor. Recommendations: 1) Continue renal diet per MD 2) Monitor need for ONS if to remains PO w/ low PO hx 3) monitor for GI MD recs; NPO if bowel perforation per MD 4) weekly wts Addendum: 07/01/19 at [address] Amended: Links added.
[2019-07-01 18:00] VITALS: BP 102/79
[2019-07-01] MEDS ORDERED: VANCOMYCIN LEVEL IV ONE (18:30)
--- NOTE | 2019-07-01 18:30 | NUR ---
Problems reprioritized. Patient report given, questions answered & plan of care reviewed with Chandrakant HILL.
--- NOTE | 2019-07-01 18:31 | NUR ---
Patient in room [facility] 358. I have received report from SERGIO Maurice and had the opportunity to ask questions and assume patient care.
[2019-07-01] MEDS: lisinopril 5mg tablet PO SCH (20:27)
[2019-07-01] MEDS: LORazepam 0.5 MG tablet PO PRN (20:27)
[2019-07-01] MEDS: metroNIDAZOLE-Flagyl 500mg/NS 100 ML IV SCH (20:27)
[2019-07-01] MEDS: clopidogrel 75mg tablet PO SCH (20:29)
[2019-07-01] MEDS: FEBUXOSTAT PO SCH (20:29)
[2019-07-01] MEDS: calcium carbonate 500mg tablet PO SCH (20:29)
[2019-07-01] MEDS: aztreonam inj. 1,000 MG in normal saline 100ml IV soln 100 ML IV SCH (21:29)
[2019-07-01 23:51] VITALS: BP 116/83
[2019-07-02] MEDS: HYDROcodone/acetaminophen 5mg/325mg tablet PO PRN ×3 (01:17→14:19)
[2019-07-02] MEDS: LORazepam 0.5 MG tablet PO PRN (03:48)
[2019-07-02 05:26] LABS: BASOPHILS # (AUTO) 0.1 X10'3 (0-0.2); BASOPHILS % (AUTO) 0.8 % (0-1); EOSINOPHILS % (AUTO) 0.1 % (0-6); HEMOGLOBIN 12.4 g/dl (14.0-17.9); LYMPHOCYTES # (AUTO) 0.3 X10'3 (1.1-4.8); LYMPHOCYTES % (AUTO) 2.2 % (21-51); MEAN CORPUSCULAR HGB CONC 32.8 g/dL (33.0-36.5); MEAN CORPUSCULAR VOLUME 88.6 FL (78-98); MONOCYTES # (AUTO) 0.6 X10'3 (0-0.9); MONOCYTES % (AUTO) 4.8 % (2-12); NEUTROPHILS # (AUTO) 11.1 X10'3 (1.8-7.7); NEUTROPHILS % (AUTO) 92.1 % (42-75); PLATELET COUNT 182 X10'3 (140-440); RED BLOOD COUNT 4.29 X10'6 (4.70-6.10); RED CELL DISTRIBUTION WIDTH 16.9 % (11.5-14.5); WHITE BLOOD COUNT 12.1 X10'3 (4.5-11.0)
[2019-07-02 06:06] LABS: ALANINE AMINOTRANSFERASE 20 U/L (12-78); ALBUMIN 2.1 G/DL (3.4-5.0); ALBUMIN/GLOBULIN RATIO 0.6 (1.1-1.5); ALKALINE PHOSPHATASE 94 IU/L (46-116); ANION GAP 15 (8-16); ASPARTATE AMINO TRANSFERASE 25 U/L (10-37); BLOOD UREA NITROGEN 83 MG/DL (7-18); CHLORIDE 97 MMOL/L (99-107); CREATININE 2.86 MG/DL (0.60-1.10); GLUCOSE 179 MG/DL (70-104); MAGNESIUM 1.5 MG/DL (1.5-2.4); PHOSPHORUS 4.9 MG/DL (2.3-4.5); POTASSIUM 4.5 MMOL/L (3.5-5.1); SODIUM 136 MMOL/L (135-145); TOTAL CARBON DIOXIDE 23.7 MMOL/L (24-32); TOTAL PROTEIN 5.9 G/DL (6.4-8.2); eGFR 23 ML/MIN
--- NOTE | 2019-07-02 06:20 | NUR ---
August CAROLINA was notified ofpt's VTack(11 Run) and CA level of 6.0, and Mag 1.5. August ordered mag 2G & STAT ionized CA lab order.
--- NOTE | 2019-07-02 06:29 | NUR ---
Lab called regarding critical CA of 6.0, Dr Lynne notified - said OK and did not give any new orders.
[2019-07-02] MEDS ORDERED: magnesium 2GM in 50ml NS 50 ML IV ONE (06:40)
--- NOTE | 2019-07-02 06:45 | NUR ---
Problems reprioritized. Patient report given, questions answered & plan of care reviewed with SERGIO Maurice.
[2019-07-02] MEDS: predniSONE 5mg tablet PO SCH (08:07)
[2019-07-02] MEDS: folic acid 0.4mg tablet PO SCH (08:08)
[2019-07-02] MEDS: atorvastatin 20mg tablet PO SCH (08:08)
[2019-07-02] MEDS: vitamin D (cholecalciferol) 1,000 unit tablet PO SCH (08:08)
[2019-07-02] MEDS: levetiracetam 250mg tablet PO SCH ×2 (08:08→21:35)
[2019-07-02] MEDS: ESCITALOPRAM OXALATE 5 MG TABLET PO SCH (08:08)
[2019-07-02] MEDS: metroNIDAZOLE-Flagyl 500mg/NS 100 ML IV SCH (08:09)
[2019-07-02] MEDS: aspirin 81mg tab.chew PO SCH (08:09)
[2019-07-02] MEDS: carvedilol 6.25mg tablet PO SCH ×2 (08:09→21:35)
[2019-07-02] MEDS: heparin, porcine 5000 units/ml vial SQ SCH (08:10)
[2019-07-02] MEDS: famotidine 20mg tablet PO SCH ×3 (08:18→17:50)
[2019-07-02] MEDS: tacrolimus anhydrous 1mg capsule PO SCH ×2 (08:18→21:36)
[2019-07-02] MEDS: aztreonam inj. 1,000 MG in normal saline 100ml IV soln 100 ML IV SCH ×2 (10:41→21:35)
--- NOTE | 2019-07-02 15:40 | NUR ---
Dr Simsm came to see pt, spoke to him and let him know the soonest his WBC are better he will address pt's cardiac issues and proceed with pace maker. Asked to call Fabby to answer questions and concerns. stated he had no time. I called pt's to give her update.
[2019-07-02] MEDS: levoFLOXACIN 250mg tablet PO SCH (17:50)
[2019-07-02 18:00] VITALS: BP 114/49
--- NOTE | 2019-07-02 18:22 | NUR ---
Problems reprioritized. Patient report given, questions answered & plan of care reviewed with Chandrakant HILL.
--- NOTE | 2019-07-02 18:23 | NUR ---
Patient in room [facility] 358. I have received report from SERGIO Maurice and had the opportunity to ask questions and assume patient care.
[2019-07-02] MEDS: calcium carbonate 500mg tablet PO SCH (21:00)
[2019-07-02] MEDS: clopidogrel 75mg tablet PO SCH (21:35)
[2019-07-02] MEDS: lactobacillus rhamnosus 10,000 MMU CELLS/CAPSULE PO SCH (21:35)
[2019-07-02] MEDS: metroNIDAZOLE 500mg tablet PO SCH (21:36)
[2019-07-02] MEDS: FEBUXOSTAT PO SCH (21:37)
[2019-07-02] MEDS: acetaminophen w/codeine (30MG) #3 tablet PO PRN (23:48)
[2019-07-03] VITALS: BP 104/47
[2019-07-03] MEDS: acetaminophen w/codeine (30MG) #3 tablet PO PRN ×4 (05:04→21:17)
[2019-07-03 05:28] LABS: BASOPHILS # (AUTO) 0.1 X10'3 (0-0.2); BASOPHILS % (AUTO) 0.3 % (0-1); EOSINOPHILS % (AUTO) 0 % (0-6); HEMATOCRIT 39.8 % (42.0-52.0); LYMPHOCYTES # (AUTO) 0.2 X10'3 (1.1-4.8); LYMPHOCYTES % (AUTO) 1.5 % (21-51); MEAN CORPUSCULAR HEMOGLOBIN 28.6 PG (27.0-31.0); MEAN CORPUSCULAR HGB CONC 32.6 g/dL (33.0-36.5); MEAN CORPUSCULAR VOLUME 87.6 FL (78-98); MEAN PLATELET VOLUME 9.6 FL (7.4-10.4); MONOCYTES # (AUTO) 0.8 X10'3 (0-0.9); NEUTROPHILS % (AUTO) 93.2 % (42-75); PLATELET COUNT 213 X10'3 (140-440); RED BLOOD COUNT 4.54 X10'6 (4.70-6.10); RED CELL DISTRIBUTION WIDTH 16.7 % (11.5-14.5); WHITE BLOOD COUNT 16.1 X10'3 (4.5-11.0)
[2019-07-03 06:20] LABS: ALANINE AMINOTRANSFERASE 23 U/L (12-78); ALBUMIN 2.1 G/DL (3.4-5.0); ALBUMIN/GLOBULIN RATIO 0.5 (1.1-1.5); ALKALINE PHOSPHATASE 97 IU/L (46-116); ANION GAP 13 (8-16); ASPARTATE AMINO TRANSFERASE 25 U/L (10-37); BLOOD UREA NITROGEN 88 MG/DL (7-18); BUN/CREATININE RATIO 31.4 (5.4-32.0); CALCIUM 6.1 MG/DL (8.5-10.1); CHLORIDE 98 MMOL/L (99-107); GLUCOSE 192 MG/DL (70-104); MAGNESIUM 1.8 MG/DL (1.5-2.4); POTASSIUM 4.8 MMOL/L (3.5-5.1); SODIUM 134 MMOL/L (135-145); TOTAL CARBON DIOXIDE 22.6 MMOL/L (24-32); TOTAL PROTEIN 6.1 G/DL (6.4-8.2); eGFR 23 ML/MIN
--- NOTE | 2019-07-03 06:58 | NUR ---
Problems reprioritized. Patient report given, questions answered & plan of care reviewed with SERGIO Galvin.
[2019-07-03 07:00] VITALS: BP 126/82
[2019-07-03] MEDS: vitamin D (cholecalciferol) 1,000 unit tablet PO SCH ×2 (08:00→09:59)
[2019-07-03] MEDS: carvedilol 6.25mg tablet PO SCH ×2 (08:27→20:29)
[2019-07-03] MEDS: famotidine 20mg tablet PO SCH ×3 (08:27→16:58)
[2019-07-03] MEDS: metroNIDAZOLE 500mg tablet PO SCH ×2 (08:27→20:29)
[2019-07-03] MEDS: aspirin 81mg tab.chew PO SCH (08:27)
[2019-07-03] MEDS: lactobacillus rhamnosus 10,000 MMU CELLS/CAPSULE PO SCH ×2 (08:28→20:30)
[2019-07-03] MEDS: folic acid 0.4mg tablet PO SCH (08:28)
[2019-07-03] MEDS: atorvastatin 20mg tablet PO SCH (08:29)
[2019-07-03] MEDS: predniSONE 5mg tablet PO SCH (08:29)
[2019-07-03] MEDS: ESCITALOPRAM OXALATE 5 MG TABLET PO SCH (08:30)
[2019-07-03] MEDS: levetiracetam 250mg tablet PO SCH ×2 (08:30→20:30)
[2019-07-03] MEDS: tacrolimus anhydrous 1mg capsule PO SCH ×2 (08:31→20:29)
[2019-07-03] MEDS: aztreonam inj. 1,000 MG in normal saline 100ml IV soln 100 ML IV SCH ×2 (08:39→20:29)
--- NOTE | 2019-07-03 10:12 | NUR ---
Spoke to Laverne in out patient wound care who stated patient was last seen on 06/[address] blanton who did a skin graft and then the dressing was Adaptic, foam kerlix and lary wrap. Laverne will direct Dr Blanton to come and see patient today for dressing orders.
[2019-07-03] MEDS: levoFLOXACIN 250mg tablet PO SCH (10:37)
--- NOTE | 2019-07-03 15:05 | NUR ---
Bladder scanned patient showed to have 21ml's in bladder.
--- NOTE | 2019-07-03 15:27 | NUR ---
Reassessment: Patient's PO intake remains low, documented with 25-50% PO intake x 2 meals 07/02 however documented to have refused all other meals since last RD assessment. Pt documented as agitated and per MD notes very frustrated and with auditory hallucinations. No appropriate PO nutrition intervention at this time given poor PO intake likely r/t current mentation. Pt receiving routine Tacrolimus, Prednisone, and antidepressant, to start antipsychotic tomorrow per med list. LBM 07/03, no documentation of stool size however documented with small BMs 06/29-07/02, large BMs prior to that. Pt with Colace PRN last given 06/29. Will continue to follow closely. Recommendations: 1) Continue renal diet per MD 2) Monitor need/appropriateness for ONS 3) monitor for GI MD recs; NPO if bowel perforation per MD 4) weekly wts Addendum: 07/03/19 at [address] Amended: Links added.
--- NOTE | 2019-07-03 18:30 | NUR ---
Patient in room [facility]. I have received report from SERGIO Galvin and had the opportunity to ask questions and assume patient care. Addendum: 07/03/19 at 2223 by Tay Waller RN Amended: Links added.
--- NOTE | 2019-07-03 18:54 | NUR ---
Problems reprioritized. Patient report given, questions answered & plan of care reviewed with Charla HILL.
[2019-07-03 19:30] VITALS: BP 110/83
[2019-07-03] MEDS: clopidogrel 75mg tablet PO SCH (20:30)
[2019-07-03] MEDS: calcium carbonate 500mg tablet PO SCH (20:30)
[2019-07-03] MEDS: FEBUXOSTAT PO SCH (21:00)
[2019-07-03] MEDS: HYDROcodone/acetaminophen 10/325mg tab PO PRN (23:34)
[2019-07-04] VITALS: BP 127/89
[2019-07-04] MEDS: HYDROcodone/acetaminophen 10/325mg tab PO PRN (04:34)
[2019-07-04 05:54] LABS: BASOPHILS # (AUTO) 0.1 X10'3 (0-0.2); BASOPHILS % (AUTO) 0.4 % (0-1); EOSINOPHILS % (AUTO) 0.3 % (0-6); HEMATOCRIT 39.8 % (42.0-52.0); HEMOGLOBIN 12.9 g/dl (14.0-17.9); LYMPHOCYTES # (AUTO) 0.2 X10'3 (1.1-4.8); LYMPHOCYTES % (AUTO) 1.5 % (21-51); MEAN CORPUSCULAR HEMOGLOBIN 28.7 PG (27.0-31.0); MEAN CORPUSCULAR HGB CONC 32.4 g/dL (33.0-36.5); MEAN CORPUSCULAR VOLUME 88.4 FL (78-98); MEAN PLATELET VOLUME 9.4 FL (7.4-10.4); MONOCYTES # (AUTO) 0.8 X10'3 (0-0.9); MONOCYTES % (AUTO) 5.2 % (2-12); NEUTROPHILS # (AUTO) 13.6 X10'3 (1.8-7.7); NEUTROPHILS % (AUTO) 92.6 % (42-75); PLATELET COUNT 233 X10'3 (140-440); RED BLOOD COUNT 4.51 X10'6 (4.70-6.10); RED CELL DISTRIBUTION WIDTH 16.8 % (11.5-14.5); WHITE BLOOD COUNT 14.8 X10'3 (4.5-11.0)
[2019-07-04 06:02] LABS: ALANINE AMINOTRANSFERASE 23 U/L (12-78); ALBUMIN 1.9 G/DL (3.4-5.0); ALBUMIN/GLOBULIN RATIO 0.5 (1.1-1.5); ALKALINE PHOSPHATASE 88 IU/L (46-116); ANION GAP 10 (8-16); ASPARTATE AMINO TRANSFERASE 31 U/L (10-37); BILIRUBIN,TOTAL 0.9 MG/DL (0.1-1.0); BLOOD UREA NITROGEN 85 MG/DL (7-18); BUN/CREATININE RATIO 30.8 (5.4-32.0); CHLORIDE 98 MMOL/L (99-107); CREATININE 2.76 MG/DL (0.60-1.10); GLUCOSE 160 MG/DL (70-104); MAGNESIUM 1.7 MG/DL (1.5-2.4); PHOSPHORUS 5.5 MG/DL (2.3-4.5); POTASSIUM 4.7 MMOL/L (3.5-5.1); SODIUM 135 MMOL/L (135-145); TOTAL CARBON DIOXIDE 27.3 MMOL/L (24-32); TOTAL PROTEIN 5.8 G/DL (6.4-8.2); eGFR 24 ML/MIN
[2019-07-04 06:20] LABS: CALCIUM 5.9 MG/DL (8.5-10.1)
--- NOTE | 2019-07-04 06:30 | NUR ---
Patient in room [facility]. I have received report from Charla HILL and had the opportunity to ask questions and assume patient care.
--- NOTE | 2019-07-04 06:54 | NUR ---
Problems reprioritized. Patient report given, questions answered & plan of care reviewed with SERGIO Keen. Addendum: 07/04/19 at 0655 by Tay Waller RN Amended: Links added.
[2019-07-04 07:00] VITALS: BP 117/79
[2019-07-04] MEDS: aztreonam inj. 1,000 MG in normal saline 100ml IV soln 100 ML IV SCH (08:52)
[2019-07-04] MEDS: famotidine 20mg tablet PO SCH ×3 (08:57→17:22)
[2019-07-04] MEDS: metroNIDAZOLE 500mg tablet PO SCH ×2 (08:57→21:32)
[2019-07-04] MEDS: aspirin 81mg tab.chew PO SCH (08:57)
[2019-07-04] MEDS: lactobacillus rhamnosus 10,000 MMU CELLS/CAPSULE PO SCH ×2 (08:57→21:32)
[2019-07-04] MEDS: folic acid 0.4mg tablet PO SCH (08:57)
[2019-07-04] MEDS: carvedilol 6.25mg tablet PO SCH ×2 (08:57→21:32)
[2019-07-04] MEDS: atorvastatin 20mg tablet PO SCH (08:58)
[2019-07-04] MEDS: olanzapine 10mg tablet PO SCH (08:58)
[2019-07-04] MEDS: tacrolimus anhydrous 1mg capsule PO SCH ×2 (08:58→21:33)
[2019-07-04] MEDS: predniSONE 5mg tablet PO SCH (08:58)
[2019-07-04] MEDS: levetiracetam 250mg tablet PO SCH ×2 (08:58→21:33)
[2019-07-04] MEDS: vitamin D (cholecalciferol) 1,000 unit tablet PO SCH (08:58)
[2019-07-04] MEDS: ESCITALOPRAM OXALATE 5 MG TABLET PO SCH (08:58)
[2019-07-04 11:00] VITALS: BP 99/70
[2019-07-04] MEDS: levoFLOXACIN 250mg tablet PO SCH (12:20)
[2019-07-04] MEDS: NUT.TX.IMP.RENAL FXN,LAC-REDUC (Nepro) 237 ML VANILLA PO SCH ×2 (13:00→18:00)
--- NOTE | 2019-07-04 17:05 | NUR ---
Student documentation: I have reviewed and agree with all interventions, assessments performed and documented by SN Osiel.
--- NOTE | 2019-07-04 17:43 | NUR ---
Student Medication Administration: For this medication-pass time frame, all medication were reviewed, dispensed, administered and documented per hospital policy by SN Osiel.
--- NOTE | 2019-07-04 17:51 | NUR ---
Patient report given, questions answered & plan of care reviewed with i GAVE REPORT TO VIRGEN RN.
--- NOTE | 2019-07-04 18:25 | NUR ---
Problems reprioritized. Patient report given, questions answered & plan of care reviewed with Kavon HILL.
--- NOTE | 2019-07-04 18:30 | NUR ---
Patient in room [facility]. I have received report from VIRGEN HILL and had the opportunity to ask questions and assume patient care.
[2019-07-04 20:00] VITALS: BP 110/74
[2019-07-04] MEDS: FEBUXOSTAT PO SCH (21:00)
[2019-07-04] MEDS: calcium carbonate 500mg tablet PO SCH (21:33)
[2019-07-04] MEDS: clopidogrel 75mg tablet PO SCH (21:33)
[2019-07-04] MEDS: docusate sod 100mg capsule PO PRN (21:33)
[2019-07-04] MEDS: HYDROcodone/acetaminophen 5mg/325mg tablet PO PRN (23:08)
[2019-07-05] VITALS: BP 111/82
[2019-07-05 05:57] LABS: BASOPHILS % (AUTO) 0.3 % (0-1); EOSINOPHILS % (AUTO) 0.2 % (0-6); HEMATOCRIT 39.2 % (42.0-52.0); HEMOGLOBIN 12.9 g/dl (14.0-17.9); LYMPHOCYTES # (AUTO) 0.3 X10'3 (1.1-4.8); LYMPHOCYTES % (AUTO) 1.6 % (21-51); MEAN CORPUSCULAR HEMOGLOBIN 28.9 PG (27.0-31.0); MEAN CORPUSCULAR VOLUME 87.8 FL (78-98); MEAN PLATELET VOLUME 9.2 FL (7.4-10.4); MONOCYTES # (AUTO) 0.9 X10'3 (0-0.9); MONOCYTES % (AUTO) 5.2 % (2-12); NEUTROPHILS # (AUTO) 15.3 X10'3 (1.8-7.7); NEUTROPHILS % (AUTO) 92.7 % (42-75); PLATELET COUNT 257 X10'3 (140-440); RED BLOOD COUNT 4.46 X10'6 (4.70-6.10); RED CELL DISTRIBUTION WIDTH 17.1 % (11.5-14.5); WHITE BLOOD COUNT 16.5 X10'3 (4.5-11.0)
--- NOTE | 2019-07-05 06:00 | NUR ---
Patient in room [facility] 358. I have received report from SHARI MCCARTHY RN and had the opportunity to ask questions and assume patient care.
[2019-07-05 06:07] LABS: ALANINE AMINOTRANSFERASE 20 U/L (12-78); ALBUMIN/GLOBULIN RATIO 0.5 (1.1-1.5); ALKALINE PHOSPHATASE 99 IU/L (46-116); ANION GAP 13 (8-16); ASPARTATE AMINO TRANSFERASE 34 U/L (10-37); BILIRUBIN,TOTAL 0.9 MG/DL (0.1-1.0); BLOOD UREA NITROGEN 100 MG/DL (7-18); BUN/CREATININE RATIO 28.1 (5.4-32.0); CHLORIDE 98 MMOL/L (99-107); CREATININE 3.56 MG/DL (0.60-1.10); GLUCOSE 148 MG/DL (70-104); MAGNESIUM 1.7 MG/DL (1.5-2.4); POTASSIUM 4.7 MMOL/L (3.5-5.1); SODIUM 135 MMOL/L (135-145); TOTAL CARBON DIOXIDE 23.7 MMOL/L (24-32); TOTAL PROTEIN 6.1 G/DL (6.4-8.2); eGFR 18 ML/MIN
--- NOTE | 2019-07-05 06:30 | NUR ---
Problems reprioritized. Patient report given, questions answered & plan of care reviewed with ALEXA HILL.
[2019-07-05 08:00] VITALS: BP 104/50
--- NOTE | 2019-07-05 09:05 | NUR ---
DR SOLIS ROUNDED ON PT. HE CHANGED HIM TO A REGULAR DIET. I INFORMED THE DR OF HIS CRITICAL CALCIUM OF 6.0. NO NEW ORDERS.
[2019-07-05] MEDS: lactobacillus rhamnosus 10,000 MMU CELLS/CAPSULE PO SCH ×2 (09:10→21:39)
[2019-07-05] MEDS: carvedilol 6.25mg tablet PO SCH ×2 (09:10→21:38)
[2019-07-05] MEDS: folic acid 0.4mg tablet PO SCH (09:10)
[2019-07-05] MEDS: aspirin 81mg tab.chew PO SCH (09:11)
[2019-07-05] MEDS: olanzapine 10mg tablet PO SCH (09:11)
[2019-07-05] MEDS: metroNIDAZOLE 500mg tablet PO SCH ×2 (09:11→21:39)
[2019-07-05] MEDS: atorvastatin 20mg tablet PO SCH (09:11)
[2019-07-05] MEDS: ESCITALOPRAM OXALATE 5 MG TABLET PO SCH (09:11)
[2019-07-05] MEDS: predniSONE 5mg tablet PO SCH (09:12)
[2019-07-05] MEDS: famotidine 20mg tablet PO SCH ×3 (09:12→16:49)
[2019-07-05] MEDS: tacrolimus anhydrous 1mg capsule PO SCH ×2 (09:12→21:39)
[2019-07-05] MEDS: levetiracetam 250mg tablet PO SCH ×2 (09:12→21:39)
[2019-07-05] MEDS: NUT.TX.IMP.RENAL FXN,LAC-REDUC (Nepro) 237 ML VANILLA PO SCH ×3 (09:15→18:00)
[2019-07-05] MEDS: levoFLOXACIN 250mg tablet PO SCH (10:17)
[2019-07-05 11:00] VITALS: BP 90/53
[2019-07-05] MEDS: vitamin D (cholecalciferol) 1,000 unit tablet PO SCH ×2 (12:37→21:40)
--- NOTE | 2019-07-05 13:45 | NUR ---
SPOKE WITH CT ABOUT PREP FOR CT SCAN IN THE AM. DR SOLIS WANTED THE DOCTOR SALLY TO DECIDE THE PREP. CAT SCAN IS FOLLOWING UP ON THIS
--- NOTE | 2019-07-05 18:16 | NUR ---
REVIEWED STUDENT'S CHARTING
--- NOTE | 2019-07-05 18:30 | NUR ---
Patient in room [facility] 358. I have received report from ALEXA HILL and had the opportunity to ask questions and assume patient care.
[2019-07-05 20:00] VITALS: BP 114/83
[2019-07-05] MEDS: FEBUXOSTAT PO SCH (21:00)
[2019-07-05] MEDS: barium sulfate 450ml oral suspension PO SCH (21:38)
[2019-07-05] MEDS: calcium carbonate 500mg tablet PO SCH (21:39)
[2019-07-05] MEDS: clopidogrel 75mg tablet PO SCH (21:40)
[2019-07-05] MEDS: HYDROcodone/acetaminophen 5mg/325mg tablet PO PRN (21:41)
[2019-07-06] VITALS: BP 130/50
[2019-07-06] MEDS: HYDROcodone/acetaminophen 5mg/325mg tablet PO PRN ×2 (01:14→10:04)
--- NOTE | 2019-07-06 06:26 | NUR ---
Problems reprioritized. Patient report given, questions answered & plan of care reviewed with ALEXA HILL.
--- NOTE | 2019-07-06 06:27 | NUR ---
Patient in room [facility] 358. I have received report from SHARI MCCARTHY RN and had the opportunity to ask questions and assume patient care.
--- NOTE | 2019-07-06 07:15 | NUR ---
PT DESATTED TO 60'S AND WENT IN TO A FLUTTER. PUT PT ON 02 AT 6 LITRES. PT REGAINED SATS TO 90-100, BOUNCING UP AND DOWN. PUT A REBREATHER OF PT AT 15 LITRES PT STABILIZED SHORTLY. WILL KEEP O2 MONITOR ON PT AND ROUND Q 5MIN.
[2019-07-06] MEDS: NUT.TX.IMP.RENAL FXN,LAC-REDUC (Nepro) 237 ML VANILLA PO SCH ×3 (08:00→18:00)
[2019-07-06] MEDS: barium sulfate 450ml oral suspension PO SCH ×2 (08:16→12:19)
[2019-07-06] MEDS: olanzapine 10mg tablet PO SCH (08:16)
[2019-07-06] MEDS: metroNIDAZOLE 500mg tablet PO SCH (08:16)
[2019-07-06] MEDS: aspirin 81mg tab.chew PO SCH (08:17)
[2019-07-06] MEDS: folic acid 0.4mg tablet PO SCH (08:17)
[2019-07-06] MEDS: ESCITALOPRAM OXALATE 5 MG TABLET PO SCH (08:17)
[2019-07-06] MEDS: predniSONE 5mg tablet PO SCH (08:17)
[2019-07-06] MEDS: carvedilol 6.25mg tablet PO SCH (08:17)
[2019-07-06] MEDS: lactobacillus rhamnosus 10,000 MMU CELLS/CAPSULE PO SCH (08:17)
[2019-07-06] MEDS: levetiracetam 250mg tablet PO SCH ×2 (08:17→19:37)
[2019-07-06] MEDS: famotidine 20mg tablet PO SCH ×2 (08:17→12:19)
[2019-07-06] MEDS: vitamin D (cholecalciferol) 1,000 unit tablet PO SCH (08:18)
[2019-07-06] MEDS: atorvastatin 20mg tablet PO SCH (08:18)
--- NOTE | 2019-07-06 08:30 | NUR ---
PT WAS STABLE WHEN I FIRST CAME IN TO ADMIN HIS ORAL MEDS AND PREP FOR A CT SCAN. PT DESATTED AGAIN DOWN TO 60'S AT ONE POINT DESATTED TO 56. CHECKED WITH TELE AND DECIDED TO PUT A CONTINUOUS PULSE OX ON PT. PT IS CURRENTLY ON REBREATHER AT 15 LITRES. ACCORDING TO TELE BOX PT IS SATTING AT 84.
--- NOTE | 2019-07-06 08:30 | NUR ---
SPOKE WITH CHARGE REGARDING PT'S SATS. SHE IS AWARE THAT PT IS ON CONT. 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 WILL MONITOR VERY CLOSELY.
--- NOTE | 2019-07-06 08:45 | NUR ---
CALLED TELE BOX AGAIN TO CHECK ON SATS. STILL IN THE HIGH 80'S. REQUESTED THAT TELE CALL ME AT ANYTIME IF SATS DROP TO 80 OR BELOW.
[2019-07-06] MEDS: levoFLOXACIN 250mg tablet PO SCH (10:04)
[2019-07-06] MEDS ORDERED: magnesium 2GM in 50ml NS 50 ML IV ONE (11:00)
[2019-07-06] MEDS ORDERED: calcium chloride 100 MG/1 ML inj IV ONE (11:00)
[2019-07-06] MEDS ORDERED: normal saline 1000ml 1,000 ML IV SCH (11:00)
[2019-07-06] MEDS ORDERED: calcium chloride inj. 1,000 MG in normal saline 100ml IV soln 90 ML IV ONE (11:45)
--- NOTE | 2019-07-06 11:47 | NUR ---
Reassessment: Diet has been advanced to regular. Pt continues with 25% PO intake with refusals and with 25% PO intake of Nepro x 1. Pt currently NPO pending CT of abdomen for possible internal hernia vs small bowel perforation per PA notes. Pt now documented as A/O x 1. Poor PO intake multifactorial at this point. Fortunately pt with no documented wt loss. No further nutrition intervention implemented at this time given patient's current NPO status and decreased mentation. LB 07/04. Will continue to follow closely. Recommendations: 1) Continue regular diet per MD 2) Nepro TID 3) Encourage PO intake of meals and ONS; honor food preferences 4) monitor for GI MD recs; NPO if bowel perforation per MD 5) weekly wts Addendum: 07/06/19 at [address] Amended: Links added.
[2019-07-06 12:00] VITALS: BP 98/66
[2019-07-06] MEDS: tacrolimus anhydrous 1mg capsule PO SCH (12:19)
[2019-07-06] MEDS ORDERED: acetaminophen 325mg tablet PO PRN (16:25)
[2019-07-06] MEDS ORDERED: LORazepam 2 mg/ml vial IV PRN (16:25)
[2019-07-06 18:00] VITALS: BP 99/64
--- NOTE | 2019-07-06 18:07 | NUR ---
Patient in room [facility] 358. I have received report from SERGIO Irwin and had the opportunity to ask questions and assume patient care.
--- NOTE | 2019-07-06 18:11 | NUR ---
REVIEWED STUDENT CHARTING
[2019-07-06] MEDS: sennosides/docusate sodium tablet PO SCH (19:37)
[2019-07-06] MEDS: FEBUXOSTAT PO SCH (21:00)
[2019-07-07] MEDS: acetaminophen w/codeine (30MG) #3 tablet PO PRN ×2 (02:26→20:05)
--- NOTE | 2019-07-07 05:38 | NUR ---
Patient had multiple voids in the restroom during shift. Bladder scan performed, 0 mL.
--- NOTE | 2019-07-07 06:45 | NUR ---
Patient in room [facility] 358. I have received report from Iza Castro and had the opportunity to ask questions and assume patient care.
--- NOTE | 2019-07-07 06:53 | NUR ---
Problems reprioritized. Patient report given, questions answered & plan of care reviewed with SERGIO Maurice.
[2019-07-07 08:00] VITALS: BP 114/86
[2019-07-07] MEDS: sennosides/docusate sodium tablet PO SCH (08:19)
[2019-07-07] MEDS: olanzapine 10mg tablet PO SCH (08:19)
[2019-07-07] MEDS: levetiracetam 250mg tablet PO SCH ×2 (08:20→20:05)
[2019-07-07] MEDS: NUT.TX.IMP.RENAL FXN,LAC-REDUC (Nepro) 237 ML VANILLA PO SCH (08:22)
[2019-07-07] MEDS: LORazepam 1 MG tablet PO PRN (09:54)
[2019-07-07 18:00] VITALS: BP 112/85
--- NOTE | 2019-07-07 18:32 | NUR ---
Patient in room [facility] 358. I have received report from SERGIO Maurice and had the opportunity to ask questions and assume patient care.
[2019-07-07] MEDS: FEBUXOSTAT PO SCH (21:00)
[2019-07-08] VITALS: BP 119/87
[2019-07-08] MEDS: acetaminophen w/codeine (30MG) #3 tablet PO PRN ×5 (01:26→20:56)
[2019-07-08] MEDS: LORazepam 1 MG tablet PO PRN ×2 (06:02→17:29)
--- NOTE | 2019-07-08 06:41 | NUR ---
Problems reprioritized. Patient report given, questions answered & plan of care reviewed with SERGIO Maurice.
--- NOTE | 2019-07-08 06:42 | NUR ---
Patient in room [facility] 358. I have received report from Iza HILL and had the opportunity to ask questions and assume patient care.
[2019-07-08 07:00] VITALS: BP 117/86
[2019-07-08] MEDS: olanzapine 10mg tablet PO SCH (08:14)
[2019-07-08] MEDS: levetiracetam 250mg tablet PO SCH ×2 (08:15→20:56)
[2019-07-08 11:00] VITALS: BP 106/75
[2019-07-08 19:00] VITALS: BP 94/50
--- NOTE | 2019-07-08 19:18 | NUR ---
Problems reprioritized. Patient report given, questions answered & plan of care reviewed with Keshawn gonzalez.
[2019-07-08] MEDS: FEBUXOSTAT PO SCH (20:54)
[2019-07-09] VITALS (22 sets, daily range): BP systolic 92–176; BP diastolic 35–103
--- NOTE | 2019-07-09 06:42 | NUR ---
Patient in room [facility] 358. I have received report from Keshawn HILL and had the opportunity to ask questions and assume patient care.
--- NOTE | 2019-07-09 06:45 | NUR ---
Problems reprioritized. Patient report given, questions answered & plan of care reviewed with MIRANDA. Addendum: 07/09/19 at 0646 by Kwasi Lacy RN Amended: Links added.
--- NOTE | 2019-07-09 07:02 | NUR ---
Patient in room [facility] 358. I have received report from BRIELLE HILL and had the opportunity to ask questions and assume patient care.
[2019-07-09] MEDS: olanzapine 10mg tablet PO SCH (07:43)
[2019-07-09] MEDS: levetiracetam 250mg tablet PO SCH ×2 (07:44→21:37)
--- NOTE | 2019-07-09 09:26 | NUR ---
Reassessment: Per surgeon patient has inflammatory process with what appears to be tissue necrosis of his left mid abdomen. Pt continues to eat poorly on regular diet documented with 25-50% with refusals of multiple meals. No nutrition intervention at this time as patient now DNR with comfort care. LB 07/08. Will continue to follow per LOS protocol. Recommendations: 1) Continue bowel care per comfort care measures Addendum: 07/09/19 at [address] Amended: Links added.
[2019-07-09 10:00] LABS: BASOPHILS % (AUTO) 0.1 % (0-1); EOSINOPHILS # (AUTO) 0.1 X10'3 (0-0.9); EOSINOPHILS % (AUTO) 0.5 % (0-6); HEMATOCRIT 36.5 % (42.0-52.0); HEMOGLOBIN 11.9 g/dl (14.0-17.9); LYMPHOCYTES # (AUTO) 0.2 X10'3 (1.1-4.8); LYMPHOCYTES % (AUTO) 1.1 % (21-51); MEAN CORPUSCULAR HEMOGLOBIN 28.4 PG (27.0-31.0); MEAN CORPUSCULAR HGB CONC 32.6 g/dL (33.0-36.5); MEAN CORPUSCULAR VOLUME 87.2 FL (78-98); MONOCYTES # (AUTO) 0.8 X10'3 (0-0.9); MONOCYTES % (AUTO) 4.5 % (2-12); NEUTROPHILS # (AUTO) 15.9 X10'3 (1.8-7.7); NEUTROPHILS % (AUTO) 93.8 % (42-75); PLATELET COUNT 295 X10'3 (140-440); RED BLOOD COUNT 4.18 X10'6 (4.70-6.10); RED CELL DISTRIBUTION WIDTH 16.7 % (11.5-14.5); WHITE BLOOD COUNT 16.9 X10'3 (4.5-11.0)
[2019-07-09 10:09] LABS: PARTIAL THROMBOPLASTIN TIME 30 SECONDS (22-32)
[2019-07-09 10:19] LABS: ALANINE AMINOTRANSFERASE 11 U/L (12-78); ALBUMIN/GLOBULIN RATIO 0.5 (1.1-1.5); ALKALINE PHOSPHATASE 70 IU/L (46-116); ANION GAP 13 (8-16); ASPARTATE AMINO TRANSFERASE 32 U/L (10-37); BLOOD UREA NITROGEN 115 MG/DL (7-18); CALCIUM 6.1 MG/DL (8.5-10.1); CHLORIDE 102 MMOL/L (99-107); CREATININE 3.48 MG/DL (0.60-1.10); GLUCOSE 232 MG/DL (70-104); PHOSPHORUS 4.1 MG/DL (2.3-4.5); POTASSIUM 5.9 MMOL/L (3.5-5.1); SODIUM 134 MMOL/L (135-145); TOTAL CARBON DIOXIDE 19.3 MMOL/L (24-32); TOTAL PROTEIN 6.3 G/DL (6.4-8.2); eGFR 18 ML/MIN
[2019-07-09 10:29] LABS: TOTAL CELLS COUNTED 100
[2019-07-09 10:30] LABS: PLATELET ESTIMATE NORMAL
[2019-07-09 10:31] LABS: ANISOCYTOSIS 1+
[2019-07-09] MEDS: acetaminophen w/codeine (30MG) #3 tablet PO PRN ×2 (11:57→21:43)
--- NOTE | 2019-07-09 16:57 | NUR ---
patient seen by Dr Suarez, is for Abcess drainage by IR. Sister present in room. Sister stated that she would need to call patients prior to procedure. CAll made by sister to patients . Patient taken for procedure.
[2019-07-09] MEDS ORDERED: fentaNYL/PF 50MCG/1 ML 2ML syringe ONE (17:04)
[2019-07-09] MEDS ORDERED: diphenhydrAMINE 50 mg/ml inj IV ONE (17:05)
[2019-07-09] MEDS ORDERED: diphenhydrAMINE 50 mg/ml inj ONE (17:05)
[2019-07-09] MEDS ORDERED: LIDOcaine 1% (10mg/ml) 2ml vial SQ ONE (17:05)
[2019-07-09] MEDS ORDERED: fentaNYL/PF 50MCG/1 ML 2ML syringe IV PRN (17:05)
[2019-07-09] MEDS ORDERED: glucagon, human recombinant 1mg kit ONE (17:19)
--- NOTE | 2019-07-09 18:30 | NUR ---
1819 received report from SERGIO Le. Pt in IR at this time. 1824 received pt from IR via cristobalrquinten, received bedside report. pt drowsy, but arousable 99% on r/a, but 2 l o2 placed d/t sedation. will monitor. 1829 pt vss, lungs clear, ABD dist bruised, bandaide cd&i bs +, dressing to left elbow cd&i, dressing to right foot intact with lary wrap elevated on pillow, delayed cap refill, tender to touch. left foot multiple dried abrasions, weak palpable pulse sl warmer than right foot. both elevated on pillows. bed alarm on. lungs clear ant, few crackles LEFT LOWER LOBE, BRUISES BILAT ARMS. Addendum: 07/09/19 at 1848 by Tay Waller RN Amended: Links added.
--- NOTE | 2019-07-09 18:42 | NUR ---
Problems reprioritized. Patient report given, questions answered & plan of care reviewed with Addie HILL .
[2019-07-09] MEDS: FEBUXOSTAT PO SCH (21:00)
--- NOTE | 2019-07-09 22:52 | NUR ---
pt refusing to have iv started at this time. Addendum: 07/09/19 at 2252 by Tay Waller RN Amended: Links added.
[2019-07-10 00:05] VITALS: BP 88/60
[2019-07-10 00:15] VITALS: BP 97/67
--- NOTE | 2019-07-10 05:57 | NUR ---
AWAKE DRINKING MILK, NO COMPLAINTS Addendum: 07/10/19 at 0558 by Tay Waller RN Amended: Links added.
--- NOTE | 2019-07-10 06:25 | NUR ---
Problems reprioritized. Patient report given, questions answered & plan of care reviewed with SERGIO GAN. Addendum: 07/10/19 at 0625 by Tay Waller RN Amended: Links added.
--- NOTE | 2019-07-10 06:30 | NUR ---
Patient in room [facility] 358. I have received report from SERGIO eRal and had the opportunity to ask questions and assume patient care.
[2019-07-10 07:00] VITALS: BP 108/78
[2019-07-10] MEDS: levetiracetam 250mg tablet PO SCH ×2 (07:48→20:26)
[2019-07-10] MEDS: olanzapine 10mg tablet PO SCH (07:48)
[2019-07-10] MEDS: LORazepam 1 MG tablet PO PRN (08:52)
--- NOTE | 2019-07-10 09:00 | NUR ---
Pt c/o anxiety and nausea. PO ativan was offered with education as to effects of medication. Pt and agreeable to medication administration at this time. Will continue to monitor.
[2019-07-10] MEDS ORDERED: ziprasidone IM 20mg inj **IM only IM PRN (09:55)
--- NOTE | 2019-07-10 09:55 | NUR ---
Received phone call from Dr Tellez stating that the pt family wishes to have all home medications, especially anti-rejection medications, restarted. All medications listed on med rec ordered and restarted, as well as antibiotic therapy.
[2019-07-10 11:00] VITALS: BP 111/77
[2019-07-10] MEDS ORDERED: famotidine 20mg tablet PO SCH (12:00)
--- NOTE | 2019-07-10 12:48 | NUR ---
Pt family requested to see warehouse specialist regarding concerns about end of life care plan. Family meeting was had with ore charger, rn field case manager, social worker health services, and primary RN to discuss pt concerns. Dr Tellez attended meeting with family, it is agreed that the pt will continue with modified comfort care measures. All medications will be discontinued except antiseizure medications, antirejection medications, IV pain medications, and antibiotics. Per family's request, no ativan is to be given to the patient D/T adverse affects. No chest compressions and no dialysis to be performed. Family states understanding and is agreeable to this plan.
[2019-07-10] MEDS: cefepime 1GM in D5W 50mL 50 ML IV SCH (13:18)
[2019-07-10] MEDS: levoFLOXACIN 250mg tablet PO SCH (13:18)
[2019-07-10] MEDS: HYDROmorphone 1 mg/ml syringe IV PRN ×2 (13:19→20:35)
--- NOTE | 2019-07-10 18:36 | NUR ---
Problems reprioritized. Patient report given, questions answered & plan of care reviewed with SERGIO Jacobson.
--- NOTE | 2019-07-10 18:37 | NUR ---
Patient in room [facility] 358. I have received report from ELVIA HILL and had the opportunity to ask questions and assume patient care.
[2019-07-10 20:00] VITALS: BP 108/82
[2019-07-10] MEDS ORDERED: carVEDilol 3.125mg tablet PO SCH (20:00)
[2019-07-10] MEDS: tacrolimus anhydrous 1mg capsule PO SCH (20:26)
[2019-07-10] MEDS ORDERED: calcium carbonate 500mg tablet PO SCH (21:00)
[2019-07-10] MEDS ORDERED: clopidogrel 75mg tablet PO SCH (21:00)
[2019-07-10] MEDS ORDERED: lisinopril 5mg tablet PO SCH (21:00)
[2019-07-11] MEDS: HYDROmorphone 1 mg/ml syringe IV PRN ×4 (04:40→23:48)
--- NOTE | 2019-07-11 06:25 | NUR ---
Problems reprioritized. Patient report given, questions answered & plan of care reviewed with ELVIA HILL.
--- NOTE | 2019-07-11 06:27 | NUR ---
Patient in room [facility] 358. I have received report from SERGIO Jacobson and had the opportunity to ask questions and assume patient care.
[2019-07-11 07:24] VITALS: BP 110/69
[2019-07-11] MEDS: tacrolimus anhydrous 1mg capsule PO SCH ×2 (07:33→21:14)
[2019-07-11] MEDS: olanzapine 10mg tablet PO SCH (07:33)
[2019-07-11] MEDS: cefepime 1GM in D5W 50mL 50 ML IV SCH (07:33)
[2019-07-11] MEDS: levetiracetam 250mg tablet PO SCH ×2 (07:33→21:15)
[2019-07-11] MEDS ORDERED: folic acid 0.4mg tablet PO SCH (08:00)
[2019-07-11] MEDS ORDERED: cholecalciferol (vitamin D) 400 unit tablet PO SCH (08:00)
[2019-07-11] MEDS ORDERED: atorvastatin 20mg tablet PO SCH (08:00)
[2019-07-11] MEDS ORDERED: aspirin 81mg tab.chew PO SCH (08:30)
[2019-07-11] MEDS ORDERED: predniSONE 5mg tablet PO SCH (08:30)
[2019-07-11] MEDS: levoFLOXACIN 250mg tablet PO SCH (10:45)
[2019-07-11 11:05] VITALS: BP 93/73
--- NOTE | 2019-07-11 18:06 | NUR ---
Problems reprioritized. Patient report given, questions answered & plan of care reviewed with SERGIO Jacobson.
--- NOTE | 2019-07-11 18:30 | NUR ---
Patient in room [facility] 358. I have received report from ELVIA HILL and had the opportunity to ask questions and assume patient care.
[2019-07-11 20:00] VITALS: BP 89/62
[2019-07-12] MEDS: HYDROmorphone 1 mg/ml syringe IV PRN ×5 (04:51→22:07)
--- NOTE | 2019-07-12 06:11 | NUR ---
Problems reprioritized. Patient report given, questions answered & plan of care reviewed with ELVIA HILL.
--- NOTE | 2019-07-12 06:21 | NUR ---
Patient in room [facility] 358. I have received report from SERGIO Jacobson and had the opportunity to ask questions and assume patient care.
[2019-07-12 07:00] VITALS: BP 109/82
[2019-07-12] MEDS: olanzapine 10mg tablet PO SCH (07:55)
[2019-07-12] MEDS: tacrolimus anhydrous 1mg capsule PO SCH ×2 (07:56→20:54)
[2019-07-12] MEDS: levetiracetam 250mg tablet PO SCH ×2 (07:56→20:54)
[2019-07-12] MEDS: cefepime 1GM in D5W 50mL 50 ML IV SCH (07:56)
[2019-07-12] MEDS: levoFLOXACIN 250mg tablet PO SCH (11:27)
--- NOTE | 2019-07-12 18:09 | NUR ---
Problems reprioritized. Patient report given, questions answered & plan of care reviewed with SERGIO Jacobson.
--- NOTE | 2019-07-12 18:30 | NUR ---
Patient in room [facility] 358. I have received report from ELVIA HILL and had the opportunity to ask questions and assume patient care.
[2019-07-12 20:00] VITALS: BP 105/71
[2019-07-12] MEDS: sodium bicarbonate 650mg tablet PO SCH (20:54)
[2019-07-13] MEDS: HYDROmorphone 1 mg/ml syringe IV PRN ×8 (03:07→23:29)
--- NOTE | 2019-07-13 06:27 | NUR ---
Problems reprioritized. Patient report given, questions answered & plan of care reviewed with CRIS HILL.
[2019-07-13] MEDS: sodium bicarbonate 650mg tablet PO SCH ×2 (07:31→19:18)
[2019-07-13] MEDS: tacrolimus anhydrous 1mg capsule PO SCH ×2 (07:31→19:18)
[2019-07-13] MEDS: cefepime 1GM in D5W 50mL 50 ML IV SCH (07:31)
[2019-07-13] MEDS: olanzapine 10mg tablet PO SCH (07:32)
[2019-07-13] MEDS: levetiracetam 250mg tablet PO SCH ×2 (07:32→19:18)
[2019-07-13 08:14] VITALS: BP 102/69
[2019-07-13] MEDS: acetaminophen w/codeine (30MG) #3 tablet PO PRN (09:43)
[2019-07-13] MEDS: levoFLOXACIN 250mg tablet PO SCH (10:59)
--- NOTE | 2019-07-13 11:57 | NUR ---
DRESSING CHANGED PER MD ORDERS.
[2019-07-13 11:58] VITALS: BP 87/58
[2019-07-13] MEDS: hydrOXYzine 25 MG tablet PO PRN (16:49)
--- NOTE | 2019-07-13 18:20 | NUR ---
Patient in room [facility] 358. I have received report from Rochelle HILL and had the opportunity to ask questions and assume patient care.
--- NOTE | 2019-07-13 18:26 | NUR ---
Problems reprioritized. Patient report given, questions answered & plan of care reviewed with SERGIO Kent.
[2019-07-13 20:00] VITALS: BP 97/72
[2019-07-14] MEDS: HYDROmorphone 1 mg/ml syringe IV PRN ×6 (01:51→20:07)
[2019-07-14 05:57] LABS: BASOPHILS # (AUTO) 0.1 X10'3 (0-0.2); BASOPHILS % (AUTO) 0.6 % (0-1); EOSINOPHILS # (AUTO) 0.1 X10'3 (0-0.9); EOSINOPHILS % (AUTO) 1.2 % (0-6); HEMATOCRIT 37.7 % (42.0-52.0); HEMOGLOBIN 12.4 g/dl (14.0-17.9); LYMPHOCYTES # (AUTO) 0.4 X10'3 (1.1-4.8); LYMPHOCYTES % (AUTO) 3.7 % (21-51); MEAN CORPUSCULAR HEMOGLOBIN 29.3 PG (27.0-31.0); MEAN CORPUSCULAR HGB CONC 32.8 g/dL (33.0-36.5); MEAN CORPUSCULAR VOLUME 89.2 FL (78-98); MEAN PLATELET VOLUME 8.7 FL (7.4-10.4); MONOCYTES # (AUTO) 0.8 X10'3 (0-0.9); NEUTROPHILS # (AUTO) 9.1 X10'3 (1.8-7.7); NEUTROPHILS % (AUTO) 86.5 % (42-75); PLATELET COUNT 271 X10'3 (140-440); RED BLOOD COUNT 4.23 X10'6 (4.70-6.10); RED CELL DISTRIBUTION WIDTH 17.1 % (11.5-14.5); WHITE BLOOD COUNT 10.5 X10'3 (4.5-11.0)
[2019-07-14 06:29] LABS: ALANINE AMINOTRANSFERASE 37 U/L (12-78); ALBUMIN 1.7 G/DL (3.4-5.0); ALBUMIN/GLOBULIN RATIO 0.4 (1.1-1.5); ALKALINE PHOSPHATASE 113 IU/L (46-116); ANION GAP 8 (8-16); ASPARTATE AMINO TRANSFERASE 154 U/L (10-37); BILIRUBIN,TOTAL 0.6 MG/DL (0.1-1.0); BLOOD UREA NITROGEN 34 MG/DL (7-18); CALCIUM 6.1 MG/DL (8.5-10.1); CHLORIDE 103 MMOL/L (99-107); CREATININE 1.79 MG/DL (0.60-1.10); GLUCOSE 145 MG/DL (70-104); POTASSIUM 5.9 MMOL/L (3.5-5.1); SODIUM 134 MMOL/L (135-145); TOTAL CARBON DIOXIDE 23.3 MMOL/L (24-32); eGFR 39 ML/MIN
[2019-07-14] MEDS: hydrOXYzine 25 MG tablet PO PRN (06:32)
--- NOTE | 2019-07-14 06:35 | NUR ---
Problems reprioritized. Patient report given, questions answered & plan of care reviewed with Rochelle HILL.
[2019-07-14] MEDS: sodium bicarbonate 650mg tablet PO SCH ×2 (07:47→19:56)
[2019-07-14] MEDS: levetiracetam 250mg tablet PO SCH ×2 (07:47→19:57)
[2019-07-14] MEDS: olanzapine 10mg tablet PO SCH (07:47)
[2019-07-14] MEDS: cefepime 1GM in D5W 50mL 50 ML IV SCH (07:50)
[2019-07-14 08:00] VITALS: BP 133/36
[2019-07-14] MEDS: tacrolimus anhydrous 1mg capsule PO SCH ×3 (08:00→19:56)
--- NOTE | 2019-07-14 08:00 | NUR ---
DRESSING CHANGE ORDER IS Q2DAYS. CHANGED 07/13, NEXT DUE 07/15. PICTURES WERE TAKEN ON 07/13 <24 HOURS AGO, THIS WILL SUFFICE FOR MONDAY PICTURES.
[2019-07-14] MEDS: levoFLOXACIN 250mg tablet PO SCH (11:47)
[2019-07-14 18:00] VITALS: BP 102/78
--- NOTE | 2019-07-14 18:06 | NUR ---
Problems reprioritized. Patient report given, questions answered & plan of care reviewed with SERGIO RASHID.
--- NOTE | 2019-07-14 18:56 | NUR ---
Patient in room [facility] 358. I have received report from SERGIO Gonzalez and had the opportunity to ask questions and assume patient care.
[2019-07-15] MEDS: HYDROmorphone 1 mg/ml syringe IV PRN ×6 (01:28→23:19)
--- NOTE | 2019-07-15 06:25 | NUR ---
Patient in room [facility] 358. I have received report from GAY HILL and had the opportunity to ask questions and assume patient care.
--- NOTE | 2019-07-15 06:30 | NUR ---
Problems reprioritized. Patient report given, questions answered & plan of care reviewed with SERGIO Moore.
[2019-07-15 08:00] VITALS: BP 99/75
[2019-07-15] MEDS: olanzapine 10mg tablet PO SCH (08:45)
[2019-07-15] MEDS: sodium bicarbonate 650mg tablet PO SCH ×2 (08:45→19:26)
[2019-07-15] MEDS: levetiracetam 250mg tablet PO SCH ×2 (08:45→19:26)
[2019-07-15] MEDS: tacrolimus anhydrous 1mg capsule PO SCH ×2 (08:45→19:25)
[2019-07-15] MEDS: cefepime 1GM in D5W 50mL 50 ML IV SCH (08:50)
--- NOTE | 2019-07-15 10:40 | NUR ---
Reassessment: comfort care, will follow per protocol. Recommend: 1. continue regular diet 2. continue bowel care as needed 3. weight per rx Addendum: 07/15/19 at [address] Amended: Links added.
[2019-07-15 11:00] VITALS: BP 91/70
[2019-07-15] MEDS: levoFLOXACIN 250mg tablet PO SCH (11:51)
[2019-07-15] MEDS: metroNIDAZOLE-Flagyl 500mg/NS 100 ML IV SCH ×2 (16:53→23:42)
--- NOTE | 2019-07-15 18:50 | NUR ---
Patient in room [facility] 358. I have received report from SERGIO Moore and had the opportunity to ask questions and assume patient care.
[2019-07-15] MEDS: famotidine 20mg tablet PO SCH (23:42)
--- NOTE | 2019-07-16 06:24 | NUR ---
Problems reprioritized. Patient report given, questions answered & plan of care reviewed with SERGIO Moore.
--- NOTE | 2019-07-16 07:09 | NUR ---
Patient in room [facility] 358. I have received report from Bert HILL and had the opportunity to ask questions and assume patient care.
[2019-07-16 08:17] VITALS: BP 111/82
[2019-07-16] MEDS: metroNIDAZOLE-Flagyl 500mg/NS 100 ML IV SCH ×3 (08:34→23:09)
[2019-07-16] MEDS: sodium bicarbonate 650mg tablet PO SCH ×2 (08:35→19:46)
[2019-07-16] MEDS: olanzapine 10mg tablet PO SCH (08:35)
[2019-07-16] MEDS: levetiracetam 250mg tablet PO SCH ×2 (08:36→19:46)
[2019-07-16] MEDS: tacrolimus anhydrous 1mg capsule PO SCH ×2 (08:38→19:46)
--- NOTE | 2019-07-16 10:18 | NUR ---
Cefepime late do to Flagyl infusing
[2019-07-16 10:45] VITALS: BP 124/74
[2019-07-16] MEDS: HYDROmorphone 1 mg/ml syringe IV PRN ×4 (10:47→23:09)
[2019-07-16] MEDS: cefepime 1GM in D5W 50mL 50 ML IV SCH (11:02)
[2019-07-16 11:51] LABS: BASOPHILS % (AUTO) 0.5 % (0-1); EOSINOPHILS # (AUTO) 0.2 X10'3 (0-0.9); EOSINOPHILS % (AUTO) 2.3 % (0-6); HEMATOCRIT 33.1 % (42.0-52.0); HEMOGLOBIN 10.4 g/dl (14.0-17.9); LYMPHOCYTES # (AUTO) 0.3 X10'3 (1.1-4.8); LYMPHOCYTES % (AUTO) 3.9 % (21-51); MEAN CORPUSCULAR HEMOGLOBIN 28.9 PG (27.0-31.0); MEAN CORPUSCULAR HGB CONC 31.3 g/dL (33.0-36.5); MEAN CORPUSCULAR VOLUME 92.3 FL (78-98); MEAN PLATELET VOLUME 8.4 FL (7.4-10.4); MONOCYTES # (AUTO) 0.7 X10'3 (0-0.9); MONOCYTES % (AUTO) 8.5 % (2-12); NEUTROPHILS # (AUTO) 7.4 X10'3 (1.8-7.7); NEUTROPHILS % (AUTO) 84.8 % (42-75); PLATELET COUNT 177 X10'3 (140-440); RED BLOOD COUNT 3.59 X10'6 (4.70-6.10); RED CELL DISTRIBUTION WIDTH 18.3 % (11.5-14.5); WHITE BLOOD COUNT 8.8 X10'3 (4.5-11.0)
[2019-07-16] MEDS: mineral oil/petrolatum, white cream 113gm jar TP SCH ×2 (12:15→19:48)
[2019-07-16 12:34] VITALS: BP 96/69
[2019-07-16 13:16] LABS: ALBUMIN 1.8 G/DL (3.4-5.0); ANION GAP 9 (8-16); BLOOD UREA NITROGEN 24 MG/DL (7-18); BUN/CREATININE RATIO 14.4 (5.4-32.0); CALCIUM 6.6 MG/DL (8.5-10.1); CHLORIDE 100 MMOL/L (99-107); CREATININE 1.67 MG/DL (0.60-1.10); GLUCOSE 151 MG/DL (70-104); PHOSPHORUS 2.2 MG/DL (2.3-4.5); POTASSIUM 5.5 MMOL/L (3.5-5.1); SODIUM 131 MMOL/L (135-145); TOTAL CARBON DIOXIDE 22.1 MMOL/L (24-32); eGFR 42 ML/MIN
--- NOTE | 2019-07-16 18:11 | NUR ---
Problems reprioritized. Patient report given, questions answered & plan of care reviewed with Darcie Loco RN.
[2019-07-16] MEDS: famotidine 20mg tablet PO SCH (19:56)
[2019-07-16 20:00] VITALS: BP 115/70
--- NOTE | 2019-07-17 00:08 | NUR ---
PT HAS A LEFT FEMORAL SHEATH WITH TPA AND HEPARIN INFUSING AT SET RATES PER MD CONNORS. THERE IS NO PULSE IN THE RIGHT FOOT, FOOT IS PALE AND COOL TO TOUCH- MD AWARE. FEMSTOP ON RIGHT TIBIAL ARTERY WITH NO BLEEDING OF OOZING. LEFT GROIN IS CLEAR AND WITHOUT HEMATOMA, PULSES ON THE LEFT FOOT ARE FOUND VIA DOPPLER. Addendum: 07/18/19 at 0010 by Annette Cintron RN TIME ERROR, DONE 07/17/19 AT 2340
[2019-07-17] MEDS: HYDROmorphone 1 mg/ml syringe IV PRN ×3 (01:05→14:41)
[2019-07-17] MEDS: acetaminophen w/codeine (30MG) #3 tablet PO PRN ×2 (01:06→05:14)
--- NOTE | 2019-07-17 06:38 | NUR ---
Problems reprioritized. Patient report given, questions answered & plan of care reviewed with SERGIO Alanis.
[2019-07-17] MEDS: cefepime 1GM in D5W 50mL 50 ML IV SCH (10:25)
[2019-07-17] MEDS: sodium bicarbonate 650mg tablet PO SCH ×2 (10:32→23:32)
[2019-07-17] MEDS: olanzapine 10mg tablet PO SCH (10:32)
[2019-07-17] MEDS: levetiracetam 250mg tablet PO SCH ×2 (10:32→23:32)
[2019-07-17] MEDS: mineral oil/petrolatum, white cream 113gm jar TP SCH ×2 (10:33→23:33)
[2019-07-17] MEDS: metroNIDAZOLE-Flagyl 500mg/NS 100 ML IV SCH ×3 (11:14→23:39)
[2019-07-17] MEDS: tacrolimus anhydrous 1mg capsule PO SCH ×2 (13:40→23:32)
--- NOTE | 2019-07-17 14:10 | NUR ---
Patient taken in his bed to IR for Angiogram.
[2019-07-17] MEDS ORDERED: diphenhydrAMINE 50 mg/ml inj IV ONE (14:35)
[2019-07-17] MEDS ORDERED: fentaNYL/PF 50MCG/1 ML 2ML syringe IV PRN (14:35)
[2019-07-17] MEDS ORDERED: LIDOcaine 1%/PF 5ML 10 MG/ML VIAL SQ ONE (14:35)
[2019-07-17] MEDS ORDERED: iohexol 300 MG/1 ML 50ml polymer ONE (15:13)
[2019-07-17] MEDS ORDERED: LIDOcaine 1%/PF 5ML 10 MG/ML VIAL ONE (15:13)
[2019-07-17] MEDS ORDERED: heparin 1,000 UNITS/NS 500ml 500 ML ONE ×4 (15:22→21:48)
[2019-07-17] MEDS ORDERED: diphenhydrAMINE 50 mg/ml inj ONE ×2 (15:26→18:31)
[2019-07-17] MEDS ORDERED: fentaNYL/PF 50MCG/1 ML 2ML syringe ONE ×6 (15:26→18:55)
[2019-07-17] MEDS ORDERED: heparin 1,000unit/ml 10ml vial 10 ML ONE ×2 (16:25→18:03)
[2019-07-17] MEDS ORDERED: nitroGLYCERIN-Tridil 50MG/D5W 250 ML IV ONE (17:27)
--- NOTE | 2019-07-17 18:30 | NUR ---
I have received report from COLEEN HILL and had the opportunity to ask questions. PATIENT IN IR AT THIS TIME FOR ANGIOGRAM TO LOWER EXTREMITY.
[2019-07-17] MEDS ORDERED: gadobutrol 10mmol/10ml inj. IV ONE (18:35)
--- NOTE | 2019-07-17 19:00 | NUR ---
RECEIVED REPORT FROM NURSING PRODUCTION ENGINE REPAIRER, PATIENT NOT COMING BACK TO THE FLOOR BUT GOING TO CICU ROOM 2013.
--- NOTE | 2019-07-17 19:30 | NUR ---
CALLED PATIENT'S ESTEVAN AND WAS INFORMED PATIENT WAS TRANSFERRED TO CICU FROM IR.
--- NOTE | 2019-07-17 19:42 | NUR ---
large black bag, 1 pair sunglasses, regular glasses, clothing, socks, underware, shirts, belt, dice in wooden cup , headphones, pulse ox, keys with wooden stick, silver dollar, $1.00 bill, back dupligraph operator, hairbursh, foot brace, jerky in bag, clip board, sketch book, pencils, no dianne no nintendo switch in pt room. Addendum: 07/17/19 at 1951 by Tay Waller RN Amended: Links added.
--- NOTE | 2019-07-17 19:50 | NUR ---
wound care supplies in [facility], only med is x2 tacrolimus sent with belonging given to RN. Addendum: 07/17/19 at 1951 by Tay Waller RN Amended: Links added.
[2019-07-17] MEDS ORDERED: HYDROmorphone 1 mg/ml syringe ONE ×2 (20:10→20:58)
[2019-07-17] MEDS ORDERED: heparin 1,000 UNITS/NS 500ml 500 ML IV SCH ×2 (21:44→22:11)
[2019-07-17] MEDS: tPA-cathflo 2mg/2ml IV flush 4 MG in normal saline 100ml IV soln 100 ML ICATH SCH (21:44)
[2019-07-17] MEDS ORDERED: tPA-cathflo 2 MG/2 ml IV flush ONE (21:51)
[2019-07-17] MEDS ORDERED: tPA-cathflo 2mg/2ml IV flush 4 MG in normal saline 100ml IV soln 100 ML ICATH SCH (22:11)
--- NOTE | 2019-07-17 22:40 | NUR ---
Patient in room CICU 2013. I have received report from MD CONNORS AND KEDAR HILL and had the opportunity to ask questions and assume patient care.
[2019-07-17] MEDS ORDERED: heparin 25,000 UNIT/250ml bag 250 ML IV SCH (23:14)
--- NOTE | 2019-07-17 23:20 | NUR ---
PT IN ROOM FROM OR. OR REPORTED PT HAD NOT VOIDED FOR 7 HOURS. BLADDER SCANNED PT. PT HAD 58 ML IN BLADDER.
[2019-07-17] MEDS: famotidine 20mg tablet PO SCH (23:32)
--- NOTE | 2019-07-17 23:40 | NUR ---
PT HAS A LEFT FEMORAL SHEATH WITH TPA AND HEPARIN INFUSING AT SET RATES PER MD CONNORS. THERE IS NO PULSE IN THE RIGHT FOOT, FOOT IS PALE AND COOL TO TOUCH- MD AWARE. FEMSTOP ON RIGHT TIBIAL ARTERY WITH NO BLEEDING OF OOZING. LEFT GROIN IS CLEAR AND WITHOUT HEMATOMA, PULSES ON THE LEFT FOOT ARE FOUND VIA DOPPLER.
[2019-07-17 23:49] LABS: HEMATOCRIT 38.4 % (42.0-52.0); HEMOGLOBIN 12.6 g/dl (14.0-17.9); MEAN CORPUSCULAR HEMOGLOBIN 28.8 PG (27.0-31.0); MEAN CORPUSCULAR HGB CONC 32.8 g/dL (33.0-36.5); MEAN CORPUSCULAR VOLUME 87.9 FL (78-98); MEAN PLATELET VOLUME 8.3 FL (7.4-10.4); PLATELET COUNT 206 X10'3 (140-440); RED BLOOD COUNT 4.37 X10'6 (4.70-6.10); RED CELL DISTRIBUTION WIDTH 17.3 % (11.5-14.5); WHITE BLOOD COUNT 12.1 X10'3 (4.5-11.0)
[2019-07-18] VITALS (27 sets, daily range): BP systolic 84–125; BP diastolic 53–85
[2019-07-18 00:02] LABS: ALANINE AMINOTRANSFERASE 17 U/L (12-78); ALBUMIN 1.8 G/DL (3.4-5.0); ALBUMIN/GLOBULIN RATIO 0.4 (1.1-1.5); ALKALINE PHOSPHATASE 104 IU/L (46-116); ANION GAP 8 (8-16); ASPARTATE AMINO TRANSFERASE 33 U/L (10-37); BILIRUBIN,TOTAL 0.6 MG/DL (0.1-1.0); BLOOD UREA NITROGEN 24 MG/DL (7-18); BUN/CREATININE RATIO 14.1 (5.4-32.0); CALCIUM 6.5 MG/DL (8.5-10.1); CHLORIDE 102 MMOL/L (99-107); GLUCOSE 115 MG/DL (70-104); POTASSIUM 5.3 MMOL/L (3.5-5.1); SODIUM 134 MMOL/L (135-145); TOTAL CARBON DIOXIDE 23.7 MMOL/L (24-32); TOTAL PROTEIN 6.3 G/DL (6.4-8.2); eGFR 41 ML/MIN
[2019-07-18 00:27] LABS: PARTIAL THROMBOPLASTIN TIME 33 SECONDS (22-32)
[2019-07-18] MEDS: HYDROmorphone 1 mg/ml syringe IV PRN ×4 (00:49→12:06)
--- NOTE | 2019-07-18 02:37 | NUR ---
md eagle called. received orders to increase tpa to 2mg/hr and increase heparin to 800u/hr. heparin will be switched to the peripheral line and nitro will be started in the sheath. hepain and tpa will remain adjusted until nest lab draw at 0400. heparin bolus of 1000 u to be given iv push now.will continue to monitor
[2019-07-18] MEDS ORDERED: nitroGLYCERIN-Tridil 50MG/D5W 250 ML IV SCH (02:50)
[2019-07-18] MEDS ORDERED: nitroGLYCERIN 1gm ointment UD TP ONE (03:30)
--- NOTE | 2019-07-18 03:30 | NUR ---
md eagle at bedside. verbal order for nitro paste to be applied to right ankle and calf. will continue to monitor
[2019-07-18] MEDS: normal saline 1000ml 1,000 ML IV SCH ×4 (04:20→23:22)
[2019-07-18] MEDS ORDERED: normal saline 500ml IV soln 1,000 ML IV ONE (04:20)
[2019-07-18] MEDS ORDERED: normal saline 1000ml 1,000 ML IV ONE (04:25)
[2019-07-18 04:47] LABS: BASOPHILS % (AUTO) 0.3 % (0-1); EOSINOPHILS # (AUTO) 0.1 X10'3 (0-0.9); EOSINOPHILS % (AUTO) 0.5 % (0-6); HEMATOCRIT 36.3 % (42.0-52.0); HEMOGLOBIN 11.5 g/dl (14.0-17.9); LYMPHOCYTES # (AUTO) 0.3 X10'3 (1.1-4.8); MEAN CORPUSCULAR HEMOGLOBIN 28.6 PG (27.0-31.0); MEAN CORPUSCULAR HGB CONC 31.7 g/dL (33.0-36.5); MEAN CORPUSCULAR VOLUME 90.2 FL (78-98); MEAN PLATELET VOLUME 8.5 FL (7.4-10.4); MONOCYTES # (AUTO) 1.3 X10'3 (0-0.9); MONOCYTES % (AUTO) 9.1 % (2-12); NEUTROPHILS # (AUTO) 12.1 X10'3 (1.8-7.7); NEUTROPHILS % (AUTO) 88.1 % (42-75); PLATELET COUNT 178 X10'3 (140-440); RED BLOOD COUNT 4.03 X10'6 (4.70-6.10); RED CELL DISTRIBUTION WIDTH 17.7 % (11.5-14.5); WHITE BLOOD COUNT 13.8 X10'3 (4.5-11.0)
[2019-07-18 04:57] LABS: PARTIAL THROMBOPLASTIN TIME 46 SECONDS (22-32)
[2019-07-18 05:04] LABS: ALBUMIN 1.8 G/DL (3.4-5.0); ANION GAP 13 (8-16); BLOOD UREA NITROGEN 25 MG/DL (7-18); CALCIUM 6.7 MG/DL (8.5-10.1); CHLORIDE 102 MMOL/L (99-107); CREATININE 1.67 MG/DL (0.60-1.10); GLUCOSE 131 MG/DL (70-104); POTASSIUM 5.3 MMOL/L (3.5-5.1); SODIUM 133 MMOL/L (135-145); TOTAL CARBON DIOXIDE 17.6 MMOL/L (24-32); eGFR 42 ML/MIN
--- NOTE | 2019-07-18 05:16 | NUR ---
called results to per his request. ordered to keep the heparin and tpa at current doses. will continue to monitor
[2019-07-18] MEDS: tPA-cathflo 2mg/2ml IV flush 4 MG in normal saline 100ml IV soln 100 ML ICATH SCH ×6 (05:29→22:59)
--- NOTE | 2019-07-18 05:50 | NUR ---
pt blood pressure dropped to 84/6o. md eagle notified. ordered to turn off nitro and switch the heparin back to running in the sheath.
[2019-07-18] MEDS: metroNIDAZOLE-Flagyl 500mg/NS 100 ML IV SCH ×2 (08:10→16:12)
[2019-07-18] MEDS: cefepime 1GM in D5W 50mL 50 ML IV SCH (08:10)
[2019-07-18] MEDS: levetiracetam 250mg tablet PO SCH ×2 (08:16→20:29)
[2019-07-18] MEDS: sodium bicarbonate 650mg tablet PO SCH ×2 (08:16→20:29)
[2019-07-18] MEDS: tacrolimus anhydrous 1mg capsule PO SCH ×2 (08:16→20:29)
[2019-07-18] MEDS: acetaminophen w/codeine (30MG) #3 tablet PO PRN ×3 (08:16→23:22)
[2019-07-18] MEDS: olanzapine 10mg tablet PO SCH (08:16)
[2019-07-18 09:52] LABS: HEMATOCRIT 32.7 % (42.0-52.0); HEMOGLOBIN 10.6 g/dl (14.0-17.9); MEAN CORPUSCULAR HEMOGLOBIN 28.9 PG (27.0-31.0); MEAN CORPUSCULAR HGB CONC 32.5 g/dL (33.0-36.5); MEAN CORPUSCULAR VOLUME 88.9 FL (78-98); MEAN PLATELET VOLUME 8.5 FL (7.4-10.4); PLATELET COUNT 162 X10'3 (140-440); RED BLOOD COUNT 3.67 X10'6 (4.70-6.10); RED CELL DISTRIBUTION WIDTH 17.4 % (11.5-14.5); WHITE BLOOD COUNT 11.9 X10'3 (4.5-11.0)
[2019-07-18] MEDS: mineral oil/petrolatum, white cream 113gm jar TP SCH ×2 (12:15→20:30)
[2019-07-18 12:37] LABS: PARTIAL THROMBOPLASTIN TIME 39 SECONDS (22-32)
--- NOTE | 2019-07-18 15:28 | NUR ---
reassessment: Pt now changed to DNR s/p vacular surgery for improved LE circulation initially had blackened feet. Pt hx renal transplant w/ renal function best it's ever been as well as abdominal abscess clinically much improved per MD note. Pt poor PO fluctuating overall 0-25% avg past 7 days not meeting needs. Currently NPO post-op. Given poor PO hx pt meets severe malnutrition criteria; MD notified. AOx4 w/ brief periods of confusion per EMR; would benefit from malnutrition ed once stable prior to d/c. LBM 07/16. Will monitor for ONS preferences once PO post-op. Recommend: 1. continue regular diet; encourage PO 2. routine bowel care 3. monitor for ONS preferences once PO post-op 4. weight per rx Addendum: 07/18/19 at [address] Amended: Links added.
[2019-07-18 15:45] LABS: HEMATOCRIT 37.1 % (42.0-52.0); HEMOGLOBIN 11.8 g/dl (14.0-17.9); MEAN CORPUSCULAR HEMOGLOBIN 28.5 PG (27.0-31.0); MEAN CORPUSCULAR HGB CONC 31.8 g/dL (33.0-36.5); MEAN CORPUSCULAR VOLUME 89.6 FL (78-98); MEAN PLATELET VOLUME 8.3 FL (7.4-10.4); PLATELET COUNT 179 X10'3 (140-440); RED BLOOD COUNT 4.14 X10'6 (4.70-6.10); RED CELL DISTRIBUTION WIDTH 17.7 % (11.5-14.5)
--- NOTE | 2019-07-18 15:47 | NUR ---
11 beat run of VTA; Dr. Jimenez notified; no new orders at this time. Pt asymptomatic. Will continue to monitor.
[2019-07-18 15:59] LABS: PARTIAL THROMBOPLASTIN TIME 44 SECONDS (22-32)
[2019-07-18] MEDS ORDERED: diphenhydrAMINE 50 mg/ml inj IV ONE (16:10)
[2019-07-18] MEDS ORDERED: methylPREDNISolone sod succ 125mg/2ml vial IV ONE (16:10)
[2019-07-18] MEDS ORDERED: iohexol 300mg/ml 100ml inj. ONE (17:01)
[2019-07-18] MEDS ORDERED: fentaNYL/PF 50MCG/1 ML 2ML syringe ONE (17:12)
--- NOTE | 2019-07-18 17:49 | NUR ---
Patient back from IR; b/l pulses present via doppler. Vital signs stable. Patient alert and oriented. Sheath site stable with Heparin now running at 500units/hr
--- NOTE | 2019-07-18 18:28 | NUR ---
Problems reprioritized. Patient report given, questions answered & plan of care reviewed with Annette HILL.
--- NOTE | 2019-07-18 18:41 | NUR ---
Patient in room CICU 2013. I have received report from kemi gonzalez and had the opportunity to ask questions and assume patient care.
[2019-07-18] MEDS: famotidine 20mg tablet PO SCH (20:29)
[2019-07-18 22:40] LABS: HEMATOCRIT 36.5 % (42.0-52.0); HEMOGLOBIN 11.7 g/dl (14.0-17.9); MEAN CORPUSCULAR HEMOGLOBIN 28.8 PG (27.0-31.0); MEAN CORPUSCULAR HGB CONC 32.2 g/dL (33.0-36.5); MEAN CORPUSCULAR VOLUME 89.4 FL (78-98); MEAN PLATELET VOLUME 8.8 FL (7.4-10.4); PLATELET COUNT 159 X10'3 (140-440); RED BLOOD COUNT 4.08 X10'6 (4.70-6.10); RED CELL DISTRIBUTION WIDTH 17.9 % (11.5-14.5); WHITE BLOOD COUNT 11.5 X10'3 (4.5-11.0)
[2019-07-18 22:51] LABS: PARTIAL THROMBOPLASTIN TIME 35 SECONDS (22-32)
[2019-07-19] VITALS (24 sets, daily range): BP systolic 93–116; BP diastolic 62–87
[2019-07-19] MEDS: metroNIDAZOLE-Flagyl 500mg/NS 100 ML IV SCH ×3 (00:01→17:04)
[2019-07-19] MEDS: tPA-cathflo 2mg/2ml IV flush 4 MG in normal saline 100ml IV soln 100 ML ICATH SCH ×2 (02:59→06:59)
[2019-07-19] MEDS: acetaminophen w/codeine (30MG) #3 tablet PO PRN ×4 (05:47→22:47)
[2019-07-19] MEDS: normal saline 1000ml 1,000 ML IV SCH ×3 (07:00→20:20)
[2019-07-19] MEDS: HYDROmorphone 1 mg/ml syringe IV PRN ×2 (07:58→13:25)
[2019-07-19] MEDS: olanzapine 10mg tablet PO SCH (08:45)
[2019-07-19] MEDS: sodium bicarbonate 650mg tablet PO SCH ×2 (08:45→20:07)
[2019-07-19] MEDS: tacrolimus anhydrous 1mg capsule PO SCH ×2 (08:45→20:08)
[2019-07-19] MEDS: levetiracetam 250mg tablet PO SCH ×2 (08:45→20:07)
[2019-07-19 10:47] LABS: BASOPHILS % (AUTO) 0.3 % (0-1); EOSINOPHILS % (AUTO) 0.2 % (0-6); HEMOGLOBIN 11.4 g/dl (14.0-17.9); LYMPHOCYTES # (AUTO) 0.3 X10'3 (1.1-4.8); LYMPHOCYTES % (AUTO) 3.6 % (21-51); MEAN CORPUSCULAR HEMOGLOBIN 28.8 PG (27.0-31.0); MEAN CORPUSCULAR HGB CONC 32.7 g/dL (33.0-36.5); MEAN PLATELET VOLUME 8.6 FL (7.4-10.4); MONOCYTES # (AUTO) 0.3 X10'3 (0-0.9); MONOCYTES % (AUTO) 3.4 % (2-12); NEUTROPHILS # (AUTO) 8.9 X10'3 (1.8-7.7); NEUTROPHILS % (AUTO) 92.5 % (42-75); PLATELET COUNT 166 X10'3 (140-440); RED BLOOD COUNT 3.97 X10'6 (4.70-6.10); RED CELL DISTRIBUTION WIDTH 17.3 % (11.5-14.5); WHITE BLOOD COUNT 9.6 X10'3 (4.5-11.0)
[2019-07-19 10:53] LABS: PARTIAL THROMBOPLASTIN TIME 34 SECONDS (22-32)
[2019-07-19 11:01] LABS: ALANINE AMINOTRANSFERASE 14 U/L (12-78); ALBUMIN 1.7 G/DL (3.4-5.0); ALBUMIN/GLOBULIN RATIO 0.4 (1.1-1.5); ALKALINE PHOSPHATASE 91 IU/L (46-116); ANION GAP 13 (8-16); ASPARTATE AMINO TRANSFERASE 25 U/L (10-37); BILIRUBIN,TOTAL 0.6 MG/DL (0.1-1.0); BLOOD UREA NITROGEN 30 MG/DL (7-18); BUN/CREATININE RATIO 20.1 (5.4-32.0); CALCIUM 6.2 MG/DL (8.5-10.1); CHLORIDE 105 MMOL/L (99-107); CREATININE 1.49 MG/DL (0.60-1.10); GLUCOSE 241 MG/DL (70-104); POTASSIUM 5.5 MMOL/L (3.5-5.1); SODIUM 135 MMOL/L (135-145); TOTAL CARBON DIOXIDE 17.5 MMOL/L (24-32); TOTAL PROTEIN 5.8 G/DL (6.4-8.2); eGFR 48 ML/MIN
--- NOTE | 2019-07-19 16:30 | NUR ---
Reassessment: PO intake has improved documented with average 50% PO intake x 2 meals today. Pt seen at bedside reports between food from hospital and food from home he is satisfied and feels that his intake has improved. LB 07/15, pt would benefit from routine bowel care for regularity. Will continue to follow closely. Recommend: 1. continue regular diet; encourage PO 2. routine bowel care 3. monitor need for ONS 4. weight per rx Addendum: 07/19/19 at [address] Amended: Links added.
[2019-07-19] MEDS: mineral oil/petrolatum, white cream 113gm jar TP SCH ×2 (17:04→20:08)
--- NOTE | 2019-07-19 18:30 | NUR ---
Patient in room CICU 2013. I have received report from GRAZYNA HILL and had the opportunity to ask questions and assume patient care.
--- NOTE | 2019-07-19 20:00 | NUR ---
PT ABLE TO START BENDING AT HIP POST SHEATH REMOVAL. PT EDUCATED ON SIGNS OF BLEEDING. SITE IS DRY AND INTACT WITHOUT HEMATOMA. PEDAL PULSES ARE PRESENT BILATERALLY VIA DOPPLER. NO POSTERIOR TIBAL PULSE ON THE RIGHT. MD AWARE. PT EDUCATED ON THE WARNING SIGNS OF BLEEDING. PT VERBALIZED UNDERSTANDING
[2019-07-19] MEDS: famotidine 20mg tablet PO SCH (20:08)
[2019-07-20] VITALS (24 sets, daily range): BP systolic 85–122; BP diastolic 59–93
[2019-07-20] MEDS: metroNIDAZOLE-Flagyl 500mg/NS 100 ML IV SCH ×3 (00:45→16:08)
[2019-07-20] MEDS: hydrOXYzine 25 MG tablet PO PRN ×2 (00:46→22:49)
[2019-07-20] MEDS: acetaminophen w/codeine (30MG) #3 tablet PO PRN ×4 (02:54→20:51)
[2019-07-20] MEDS: normal saline 1000ml 1,000 ML IV SCH ×2 (03:00→09:40)
--- NOTE | 2019-07-20 04:05 | NUR ---
PT IS ABLE TO TURN INDEPENDENTLY. PT NEEDS SOME ENCOURAGEMENT TO TURN. WILL CONTINUE TO MONITOR.
[2019-07-20 06:36] LABS: ALBUMIN 1.6 G/DL (3.4-5.0); ANION GAP 10 (8-16); BLOOD UREA NITROGEN 35 MG/DL (7-18); BUN/CREATININE RATIO 21.1 (5.4-32.0); CHLORIDE 107 MMOL/L (99-107); CREATININE 1.66 MG/DL (0.60-1.10); GLUCOSE 261 MG/DL (70-104); POTASSIUM 5.2 MMOL/L (3.5-5.1); SODIUM 135 MMOL/L (135-145); TOTAL CARBON DIOXIDE 18.2 MMOL/L (24-32); eGFR 42 ML/MIN
[2019-07-20 06:39] LABS: BASOPHILS % (AUTO) 0.2 % (0-1); EOSINOPHILS % (AUTO) 0 % (0-6); HEMATOCRIT 32.9 % (42.0-52.0); HEMOGLOBIN 10.8 g/dl (14.0-17.9); LYMPHOCYTES # (AUTO) 0.4 X10'3 (1.1-4.8); MEAN CORPUSCULAR HEMOGLOBIN 28.9 PG (27.0-31.0); MEAN CORPUSCULAR HGB CONC 32.7 g/dL (33.0-36.5); MEAN CORPUSCULAR VOLUME 88.4 FL (78-98); MEAN PLATELET VOLUME 8.5 FL (7.4-10.4); MONOCYTES # (AUTO) 1.2 X10'3 (0-0.9); MONOCYTES % (AUTO) 8.6 % (2-12); NEUTROPHILS # (AUTO) 12.5 X10'3 (1.8-7.7); NEUTROPHILS % (AUTO) 88.2 % (42-75); PLATELET COUNT 170 X10'3 (140-440); RED BLOOD COUNT 3.72 X10'6 (4.70-6.10); RED CELL DISTRIBUTION WIDTH 17.8 % (11.5-14.5); WHITE BLOOD COUNT 14.1 X10'3 (4.5-11.0)
[2019-07-20 06:43] LABS: CALCIUM 5.7 MG/DL (8.5-10.1)
--- NOTE | 2019-07-20 06:57 | NUR ---
Critical Ca 5.7 reported to CAROLINA Perales. No further interventions at this time
--- NOTE | 2019-07-20 06:57 | NUR ---
Patient in room CICU 2013. I have received report from SERGIO Bryant and had the opportunity to ask questions and assume patient care.
[2019-07-20] MEDS: olanzapine 10mg tablet PO SCH (07:58)
[2019-07-20] MEDS: tacrolimus anhydrous 1mg capsule PO SCH ×2 (07:58→20:50)
[2019-07-20] MEDS: sodium bicarbonate 650mg tablet PO SCH ×2 (07:58→20:51)
[2019-07-20] MEDS: levetiracetam 250mg tablet PO SCH ×2 (07:58→20:50)
[2019-07-20] MEDS: mineral oil/petrolatum, white cream 113gm jar TP SCH ×2 (08:04→20:51)
[2019-07-20] MEDS: HYDROmorphone 1 mg/ml syringe IV PRN ×3 (12:37→22:26)
--- NOTE | 2019-07-20 18:28 | NUR ---
Problems reprioritized. Patient report given, questions answered & plan of care reviewed with Joselo RN.
[2019-07-20] MEDS ORDERED: gelatin sponge, absorbable (Gelfoam 100) sponge TP ONE (20:05)
[2019-07-20] MEDS: carVEDilol 3.125mg tablet PO SCH (20:48)
[2019-07-20] MEDS: famotidine 20mg tablet PO SCH (20:50)
--- NOTE | 2019-07-20 22:30 | NUR ---
RN Note -MD Communication Spoke to Joni Moreno regarding pt is complaining about IV magnesium hurting his arm. Also concerned about infiltrating his only IV site which was very difficult to obtain. OK per Joni to stop Mag infusion and convert to PO mag replacement.
[2019-07-21] VITALS (23 sets, daily range): BP systolic 102–124; BP diastolic 71–97
[2019-07-21] MEDS: HYDROmorphone 1 mg/ml syringe IV PRN ×4 (02:07→20:09)
[2019-07-21] MEDS: acetaminophen w/codeine (30MG) #3 tablet PO PRN ×4 (05:42→23:40)
[2019-07-21 06:28] LABS: BASOPHILS % (AUTO) 0.3 % (0-1); EOSINOPHILS # (AUTO) 0.1 X10'3 (0-0.9); EOSINOPHILS % (AUTO) 0.8 % (0-6); HEMATOCRIT 36.8 % (42.0-52.0); HEMOGLOBIN 11.9 g/dl (14.0-17.9); LYMPHOCYTES # (AUTO) 0.8 X10'3 (1.1-4.8); LYMPHOCYTES % (AUTO) 7.3 % (21-51); MEAN CORPUSCULAR HGB CONC 32.4 g/dL (33.0-36.5); MEAN CORPUSCULAR VOLUME 89.5 FL (78-98); MEAN PLATELET VOLUME 8.4 FL (7.4-10.4); MONOCYTES # (AUTO) 1.1 X10'3 (0-0.9); MONOCYTES % (AUTO) 10.3 % (2-12); NEUTROPHILS # (AUTO) 8.5 X10'3 (1.8-7.7); NEUTROPHILS % (AUTO) 81.3 % (42-75); PLATELET COUNT 156 X10'3 (140-440); RED BLOOD COUNT 4.11 X10'6 (4.70-6.10); WHITE BLOOD COUNT 10.4 X10'3 (4.5-11.0)
--- NOTE | 2019-07-21 06:30 | NUR ---
Patient in room CICU 2013. I have received report from Mac RN and had the opportunity to ask questions and assume patient care.
[2019-07-21 06:39] LABS: ALBUMIN 1.8 G/DL (3.4-5.0); ANION GAP 12 (8-16); BLOOD UREA NITROGEN 35 MG/DL (7-18); BUN/CREATININE RATIO 24.5 (5.4-32.0); CHLORIDE 107 MMOL/L (99-107); CREATININE 1.43 MG/DL (0.60-1.10); GLUCOSE 143 MG/DL (70-104); POTASSIUM 5.3 MMOL/L (3.5-5.1); SODIUM 138 MMOL/L (135-145); TOTAL CARBON DIOXIDE 19.2 MMOL/L (24-32); eGFR 50 ML/MIN
--- NOTE | 2019-07-21 07:00 | NUR ---
When in room for assessment and medications, patient states, "I'm just not up for today. I don't want to face today." inquired why he thinks he is feeling this way. States, "I have just been here for so long." Will continue to monitor.
[2019-07-21] MEDS: metroNIDAZOLE-Flagyl 500mg/NS 100 ML IV SCH ×4 (07:20→23:40)
[2019-07-21] MEDS: sodium bicarbonate 650mg tablet PO SCH ×2 (07:27→20:58)
[2019-07-21] MEDS: olanzapine 10mg tablet PO SCH (07:27)
[2019-07-21] MEDS: carVEDilol 3.125mg tablet PO SCH ×2 (07:28→20:58)
[2019-07-21] MEDS: levetiracetam 250mg tablet PO SCH ×2 (07:29→20:58)
[2019-07-21] MEDS: tacrolimus anhydrous 1mg capsule PO SCH ×2 (07:29→20:58)
[2019-07-21] MEDS: mineral oil/petrolatum, white cream 113gm jar TP SCH ×2 (07:30→20:59)
--- NOTE | 2019-07-21 12:17 | NUR ---
Patient had 7 beat run of V-tach checking mag and phos, strip in chart. Will continue to monitor.
[2019-07-21 12:42] LABS: MAGNESIUM 1.4 MG/DL (1.5-2.4); PHOSPHORUS 3.3 MG/DL (2.3-4.5)
--- NOTE | 2019-07-21 12:49 | NUR ---
After V-tach run checked mag and Mag was 1.4, called Dr. Negron for replacement protocol. Dr. Negron stated due to renal function and comorbidities we will hold off on replacing. Also requested bowel care orders, received no further orders at this time. Will continue to monitor.
[2019-07-21] MEDS ORDERED: magnesium citrate 296ml oral solution PO ONE (13:00)
[2019-07-21] MEDS ORDERED: magnesium 4gm in 100ml NS 100 ML IV ONE (13:00)
[2019-07-21] MEDS ORDERED: calcium chloride inj. 1,000 MG in normal saline 100ml IV soln 90 ML IV ONE (13:00)
--- NOTE | 2019-07-21 15:59 | NUR ---
F/u: Pt/SO seen by CASTILLO for written/verbal malnutrition ed. Pt declines written malnutrition ed. SO was acceptable to Bashir coupon for wound healing. Pt declines additional proteins at this time states wants only via foods and dislikes all ONS. Addendum: 07/21/19 at [address] Amended: Links added.
--- NOTE | 2019-07-21 18:22 | NUR ---
Problems reprioritized. Patient report given, questions answered & plan of care reviewed with Mac RN.
[2019-07-21] MEDS: famotidine 20mg tablet PO SCH (20:58)
[2019-07-21] MEDS: docusate sod 250mg capsule PO SCH (21:00)
[2019-07-21] MEDS: hydrOXYzine 25 MG tablet PO PRN (23:40)
[2019-07-21] MEDS: magnesium Cl slow-release 64mg tablet PO PRN (23:40)
[2019-07-22] VITALS (14 sets, daily range): BP systolic 103–140; BP diastolic 62–102
[2019-07-22] MEDS: HYDROmorphone 1 mg/ml syringe IV PRN ×5 (02:04→23:17)
[2019-07-22 05:19] LABS: BASOPHILS # (AUTO) 0.1 X10'3 (0-0.2); BASOPHILS % (AUTO) 0.6 % (0-1); EOSINOPHILS # (AUTO) 0.2 X10'3 (0-0.9); HEMATOCRIT 38.2 % (42.0-52.0); HEMOGLOBIN 12.3 g/dl (14.0-17.9); LYMPHOCYTES # (AUTO) 0.8 X10'3 (1.1-4.8); LYMPHOCYTES % (AUTO) 8.2 % (21-51); MEAN CORPUSCULAR HEMOGLOBIN 28.7 PG (27.0-31.0); MEAN CORPUSCULAR HGB CONC 32.1 g/dL (33.0-36.5); MEAN CORPUSCULAR VOLUME 89.5 FL (78-98); MEAN PLATELET VOLUME 8.3 FL (7.4-10.4); MONOCYTES # (AUTO) 1.2 X10'3 (0-0.9); MONOCYTES % (AUTO) 12.1 % (2-12); NEUTROPHILS # (AUTO) 7.5 X10'3 (1.8-7.7); NEUTROPHILS % (AUTO) 77.1 % (42-75); PLATELET COUNT 159 X10'3 (140-440); RED BLOOD COUNT 4.27 X10'6 (4.70-6.10); RED CELL DISTRIBUTION WIDTH 17.8 % (11.5-14.5); WHITE BLOOD COUNT 9.7 X10'3 (4.5-11.0)
[2019-07-22 05:48] LABS: ANION GAP 12 (8-16); BLOOD UREA NITROGEN 27 MG/DL (7-18); CALCIUM 6.9 MG/DL (8.5-10.1); CHLORIDE 106 MMOL/L (99-107); CREATININE 1.23 MG/DL (0.60-1.10); GLUCOSE 137 MG/DL (70-104); MAGNESIUM 1.7 MG/DL (1.5-2.4); POTASSIUM 5.3 MMOL/L (3.5-5.1); SODIUM 138 MMOL/L (135-145); TOTAL CARBON DIOXIDE 20.3 MMOL/L (24-32); eGFR 60 ML/MIN
--- NOTE | 2019-07-22 06:30 | NUR ---
Patient in room PCU 3023. I have received report from Mac RN and had the opportunity to ask questions and assume patient care.
[2019-07-22] MEDS: carVEDilol 3.125mg tablet PO SCH ×2 (08:29→21:00)
[2019-07-22] MEDS: sodium bicarbonate 650mg tablet PO SCH ×2 (08:29→21:00)
[2019-07-22] MEDS: acetaminophen w/codeine (30MG) #3 tablet PO PRN ×2 (08:30→18:59)
[2019-07-22] MEDS: olanzapine 10mg tablet PO SCH (08:31)
[2019-07-22] MEDS: levetiracetam 250mg tablet PO SCH ×2 (08:32→21:01)
[2019-07-22] MEDS: tacrolimus anhydrous 1mg capsule PO SCH ×2 (08:34→21:00)
[2019-07-22] MEDS: clindamycin 300mg/D5W 50mL 50 ML IV SCH ×3 (09:11→21:00)
[2019-07-22] MEDS: mineral oil/petrolatum, white cream 113gm jar TP SCH ×2 (09:12→20:00)
--- NOTE | 2019-07-22 11:30 | NUR ---
Provided report to Leigha HILL on PCU, offered opportunity to ask questions and she denied further questions. Patient transport in wheelchair with all belongings, wound care supplies, nasal cannula, IV tubing, medications and chart. Assisted to bed, Leigha HILL, denied any further assistance at this time, care transferred.
--- NOTE | 2019-07-22 15:46 | NUR ---
Reassessment: PO intake fluctuates, recently down to 25% with refusal of dinner 07/20 and breakfast 07/21. Pt seen by RD yesterday and refused food preferences at this time. Per previous RD note pt receiving food from home. LBM 07/21. Pt now with routine Colace. Will continue to follow closely. Recommend: 1. continue regular diet; encourage PO 2. routine bowel care 3. monitor need for ONS 4. weight per rx Addendum: 07/22/19 at [address] Amended: Links added.
--- NOTE | 2019-07-22 18:39 | NUR ---
Problems reprioritized. Patient report given, questions answered & plan of care reviewed with SERGIO Hinds.
--- NOTE | 2019-07-22 18:51 | NUR ---
Patient in room PCU 3023C. I have received report from SERGIO Ahuja and had the opportunity to ask questions and assume patient care. Patient awake for bedside report, saline locked, on room air and is stable at this time. Will continue to monitor closely.
[2019-07-22] MEDS: famotidine 20mg tablet PO SCH (21:00)
[2019-07-22] MEDS: docusate sod 250mg capsule PO SCH (21:00)
[2019-07-23] MEDS: HYDROmorphone 1 mg/ml syringe IV PRN ×6 (02:45→22:01)
[2019-07-23] MEDS: clindamycin 300mg/D5W 50mL 50 ML IV SCH ×4 (03:07→19:39)
[2019-07-23 04:00] VITALS: BP 106/85
[2019-07-23 05:00] LABS: BASOPHILS # (AUTO) 0.1 X10'3 (0-0.2); BASOPHILS % (AUTO) 0.7 % (0-1); EOSINOPHILS # (AUTO) 0.3 X10'3 (0-0.9); EOSINOPHILS % (AUTO) 3.5 % (0-6); HEMATOCRIT 37.4 % (42.0-52.0); HEMOGLOBIN 12.2 g/dl (14.0-17.9); LYMPHOCYTES # (AUTO) 0.8 X10'3 (1.1-4.8); LYMPHOCYTES % (AUTO) 8.7 % (21-51); MEAN CORPUSCULAR HEMOGLOBIN 29.2 PG (27.0-31.0); MEAN CORPUSCULAR HGB CONC 32.6 g/dL (33.0-36.5); MEAN CORPUSCULAR VOLUME 89.6 FL (78-98); MEAN PLATELET VOLUME 8.5 FL (7.4-10.4); MONOCYTES # (AUTO) 1.1 X10'3 (0-0.9); MONOCYTES % (AUTO) 11.2 % (2-12); NEUTROPHILS # (AUTO) 7.3 X10'3 (1.8-7.7); NEUTROPHILS % (AUTO) 75.9 % (42-75); PLATELET COUNT 171 X10'3 (140-440); RED BLOOD COUNT 4.18 X10'6 (4.70-6.10); RED CELL DISTRIBUTION WIDTH 17.7 % (11.5-14.5); WHITE BLOOD COUNT 9.7 X10'3 (4.5-11.0)
[2019-07-23 05:36] LABS: ALBUMIN 1.9 G/DL (3.4-5.0); ANION GAP 8 (8-16); BLOOD UREA NITROGEN 20 MG/DL (7-18); BUN/CREATININE RATIO 17.4 (5.4-32.0); CALCIUM 6.7 MG/DL (8.5-10.1); CHLORIDE 105 MMOL/L (99-107); CREATININE 1.15 MG/DL (0.60-1.10); GLUCOSE 127 MG/DL (70-104); MAGNESIUM 1.4 MG/DL (1.5-2.4); POTASSIUM 5.3 MMOL/L (3.5-5.1); SODIUM 137 MMOL/L (135-145); TOTAL CARBON DIOXIDE 23.8 MMOL/L (24-32); eGFR 65 ML/MIN
[2019-07-23 06:00] VITALS: BP 99/75
--- NOTE | 2019-07-23 06:20 | NUR ---
Patient in room PCU 3023. I have received report from Guzman HILL and had the opportunity to ask questions and assume patient care.
--- NOTE | 2019-07-23 06:35 | NUR ---
Problems reprioritized. Patient report given, questions answered & plan of care reviewed with SERGIO Ahuja and SERGIO Monaco.
[2019-07-23] MEDS: tacrolimus anhydrous 1mg capsule PO SCH ×2 (07:18→19:39)
[2019-07-23] MEDS: olanzapine 10mg tablet PO SCH (07:19)
[2019-07-23] MEDS: sodium bicarbonate 650mg tablet PO SCH ×2 (07:19→19:39)
[2019-07-23] MEDS: levetiracetam 250mg tablet PO SCH ×2 (07:19→19:39)
[2019-07-23] MEDS: carVEDilol 3.125mg tablet PO SCH ×2 (07:20→19:40)
[2019-07-23] MEDS: magnesium Cl slow-release 64mg tablet PO PRN (07:20)
[2019-07-23] MEDS: acetaminophen w/codeine (30MG) #3 tablet PO PRN ×2 (10:35→19:23)
[2019-07-23 11:00] VITALS: BP 114/90
[2019-07-23 15:00] VITALS: BP 102/78
[2019-07-23] MEDS: mineral oil/petrolatum, white cream 113gm jar TP SCH ×2 (17:04→19:42)
--- NOTE | 2019-07-23 18:19 | NUR ---
Problems reprioritized. Patient report given, questions answered & plan of care reviewed with Guzman HILL.
--- NOTE | 2019-07-23 18:20 | NUR ---
Orientation documentation: I have reviewed and agree with interventions, assessments performed and documented by Jacinda HILL. Orientee Medication Administration: For this medication-pass time frame, medication were reviewed, dispensed, administered and documented per hospital policy by Jacinda HILL.
--- NOTE | 2019-07-23 18:20 | NUR ---
Patient in room U 3023C. I have received report from Leigha RN and SERGIO Monaco and had the opportunity to ask questions and assume patient care. Patient resting comfortably in bed and stable at this time. Saline locked and currently on room air. Will continue to monitor closely.
[2019-07-23 18:41] VITALS: BP 105/78
[2019-07-23] MEDS: docusate sod 250mg capsule PO SCH (21:00)
[2019-07-23] MEDS: famotidine 20mg tablet PO SCH (21:32)
[2019-07-23 23:00] VITALS: BP 121/86
[2019-07-24] MEDS: HYDROmorphone 1 mg/ml syringe IV PRN ×3 (01:18→09:19)
[2019-07-24] MEDS: clindamycin 300mg/D5W 50mL 50 ML IV SCH ×3 (02:36→14:10)
[2019-07-24 03:00] VITALS: BP 117/91
[2019-07-24 05:06] LABS: BASOPHILS # (AUTO) 0.1 X10'3 (0-0.2); BASOPHILS % (AUTO) 0.6 % (0-1); EOSINOPHILS # (AUTO) 0.4 X10'3 (0-0.9); EOSINOPHILS % (AUTO) 3.3 % (0-6); HEMATOCRIT 39.4 % (42.0-52.0); LYMPHOCYTES # (AUTO) 0.8 X10'3 (1.1-4.8); LYMPHOCYTES % (AUTO) 7.3 % (21-51); MEAN CORPUSCULAR HGB CONC 32.9 g/dL (33.0-36.5); MEAN CORPUSCULAR VOLUME 88.2 FL (78-98); MEAN PLATELET VOLUME 8.4 FL (7.4-10.4); MONOCYTES # (AUTO) 1.3 X10'3 (0-0.9); MONOCYTES % (AUTO) 11.9 % (2-12); NEUTROPHILS # (AUTO) 8.7 X10'3 (1.8-7.7); NEUTROPHILS % (AUTO) 76.9 % (42-75); PLATELET COUNT 205 X10'3 (140-440); RED BLOOD COUNT 4.47 X10'6 (4.70-6.10); RED CELL DISTRIBUTION WIDTH 17.5 % (11.5-14.5); WHITE BLOOD COUNT 11.3 X10'3 (4.5-11.0)
--- NOTE | 2019-07-24 05:23 | NUR ---
Patient received 1 mg/mL Dilaudid at 0445 for 8/10 pain in bilateral toes and right heel. At 0500 patient stated to PCT that, "I would really like my pain meds now." Informed patient that he received his pain medication 15 minutes ago. He then stated, "Oh, yah, someone else gave it to me." Replied to patient that I gave him his last dose. Proceeded to educate patient on importance of using his PRN Dilaudid with caution and discussed concern that he doesn't remember his last dose 15 minutes ago. Patient stated, "That concerns me as well." Patient in agreement that we will alternate between tylenol with codeine and the IV Dilaudid. Level of dependence on IV Dilaudid increasing.
[2019-07-24 05:25] LABS: ALBUMIN 2.2 G/DL (3.4-5.0); ANION GAP 9 (8-16); BLOOD UREA NITROGEN 18 MG/DL (7-18); BUN/CREATININE RATIO 14.4 (5.4-32.0); CHLORIDE 103 MMOL/L (99-107); CREATININE 1.25 MG/DL (0.60-1.10); GLUCOSE 126 MG/DL (70-104); MAGNESIUM 1.4 MG/DL (1.5-2.4); POTASSIUM 5.4 MMOL/L (3.5-5.1); SODIUM 136 MMOL/L (135-145); TOTAL CARBON DIOXIDE 23.8 MMOL/L (24-32); eGFR 59 ML/MIN
--- NOTE | 2019-07-24 06:23 | NUR ---
Problems reprioritized. Patient report given, questions answered & plan of care reviewed with SERGIO Posada. Patient resting comfortably with BiPAP settings at 25% FiO2 RR-18. All patient needs met at this time. Addendum: 07/24/19 at 625 by Caitlin Kwon RN Incorrect patient. Disregard note. Addendum: 07/24/19 at 625 by Caitlin Kwon RN Correction. Report given to SERGIO Posada.
--- NOTE | 2019-07-24 06:50 | NUR ---
Patient in room PCU 3023. I have received report from Guzman and had the opportunity to ask questions and assume patient care.
[2019-07-24 07:00] VITALS: BP 117/91
[2019-07-24] MEDS: tacrolimus anhydrous 1mg capsule PO SCH (09:15)
[2019-07-24] MEDS: carVEDilol 3.125mg tablet PO SCH (09:15)
[2019-07-24] MEDS: sodium bicarbonate 650mg tablet PO SCH (09:16)
[2019-07-24] MEDS: olanzapine 10mg tablet PO SCH (09:16)
[2019-07-24] MEDS: magnesium Cl slow-release 64mg tablet PO PRN (09:16)
[2019-07-24] MEDS: docusate sod 250mg capsule PO SCH (09:18)
[2019-07-24] MEDS: levetiracetam 250mg tablet PO SCH (09:18)
[2019-07-24] MEDS: mineral oil/petrolatum, white cream 113gm jar TP SCH (09:20)
[2019-07-24 11:00] VITALS: BP 118/70
[2019-07-24] MEDS: acetaminophen w/codeine (30MG) #3 tablet PO PRN (14:18)
[2019-07-24] MEDS ORDERED: CLIN300P10 IV (14:19)
[2019-07-24] MEDS ORDERED: OLAN10TA19 PO (14:19)
[2019-07-24] MEDS ORDERED: WOOL454C TP (14:19)
[2019-07-24] MEDS ORDERED: DOCU250C96 PO (14:19)
[2019-07-24] MEDS ORDERED: HYDR-3686 PO (14:19)
--- NOTE | 2019-07-24 15:35 | NUR ---
Patient was cleared to discharge to [facility] per Dr. Jimenez. Family at bedside during time of transfer. Called report to SERGIO Chavez. He was made aware of his wounds. Reported current labs and that 1 dose of mag was replaced for the mag level of 1.4. Tele box removed. Patient refused pictures being taken of his feet at time of discharge as he was getting overwhelmed during the transfer process. Patient states he has a history of anxiety and new things make him dwell. VS stable at time of discharge. All belongings were given to the patients sister to transport over to [facility]. Patient left in stable condition.
== END 2019-07-24 15:25 | DRG 853 ==
LOC: ER 13:39 → ED HOLD 17:04 → SUR 3N 21:30 → CICU 2S 07-17 19:26 → PCU 3S 07-22 11:25
PROVIDERS: ADMIT Internal Medicine Critical Care Medicine; ATTEND Internal Medicine Critical Care Medicine
PROC: BD15YZZ Fluoroscopy of Upper GI using Other Contrast (ICD-10-PCS; 2019-06-28)
PROC: 0W9F3ZZ Drainage of Abdominal Wall, Percutaneous Approach (ICD-10-PCS; 2019-07-09)
PROC: 047M3DZ Dilation of Right Popliteal Artery with Intraluminal Device, Percutaneous Approach (ICD-10-PCS; principal; 2019-07-17)
PROC: B41F1ZZ Fluoroscopy of Right Lower Extremity Arteries using Low Osmolar Contrast (ICD-10-PCS; 2019-07-18)
DX: A41.9 Sepsis, unspecified organism (principal); N18.6 End stage renal disease; S85.091A Other specified injury of popliteal artery, right leg, initial encounter; N17.9 Acute kidney failure, unspecified; E87.2 Acidosis; L02.211 Cutaneous abscess of abdominal wall; Z94.0 Kidney transplant status; I47.2 Ventricular tachycardia; I42.9 Cardiomyopathy, unspecified; G93.40 Encephalopathy, unspecified; I13.2 Hypertensive heart and chronic kidney disease with heart failure and with stage 5 chronic kidney disease, or end stage renal disease; I48.92 Unspecified atrial flutter; T86.19 Other complication of kidney transplant; R44.0 Auditory hallucinations; I74.3 Embolism and thrombosis of arteries of the lower extremities; T82.898A Other specified complication of vascular prosthetic devices, implants and grafts, initial encounter; R25.1 Tremor, unspecified; E83.51 Hypocalcemia; Y92.239 Unspecified place in hospital as the place of occurrence of the external cause; E86.0 Dehydration; I50.9 Heart failure, unspecified; E78.00 Pure hypercholesterolemia, unspecified; F32.9 Major depressive disorder, single episode, unspecified; I25.10 Atherosclerotic heart disease of native coronary artery without angina pectoris; I73.9 Peripheral vascular disease, unspecified; L97.519 Non-pressure chronic ulcer of other part of right foot with unspecified severity; Y83.0 Surgical operation with transplant of whole organ as the cause of abnormal reaction of the patient, or of later complication, without mention of misadventure at the time of the procedure; Y71.2 Prosthetic and other implants, materials and accessory cardiovascular devices associated with adverse incidents; Y92.238 Other place in hospital as the place of occurrence of the external cause; Z51.5 Encounter for palliative care; Z66 Do not resuscitate; R19.00 Intra-abdominal and pelvic swelling, mass and lump, unspecified site; I25.2 Old myocardial infarction; Z95.2 Presence of prosthetic heart valve; Z88.8 Allergy status to other drugs, medicaments and biological substances; Z79.899 Other long term (current) drug therapy; Z79.82 Long term (current) use of aspirin
CPT/HCPCS: 10160; 36415; 37214; 37226; 37228; 71045; 74176; 74246; 76775; 76937; 77012; 80048; 80053; 80069; 80197; 80305; 80320; 81001; 81003; 82330; 82570; 83605; 83735; 84100; 84145; 84156; 84300; 84443; 84484; 85025; 85027; 85347; 85384; 85610; 85730; 87040; 87070; 87077; 87081; 87185; 87186; 93005; 93306; 93926; 96360; 96361; 97110; 97116; 97161; 97164; 97530; 99285; A9585; G0378; J0282; J0692; J1170; J1200; J1610; J1644; J2405; J2930; J2997; J3010; J3370; J3475; J3490; J7030; J7507; J7512; Q0169; Q9967; Z7610

== ENCOUNTER 2019-07-29 12:34 | Emergency (ER) | payer MEDICARE, BC ==
[~2019-07-29] VITALS: Ht 177.8 cm; Wt 94.1 kg
[~2019-07-29 12:34] MED LIST changes: +CLIN300P10 IV; +DOCU250C96 PO; +HYDR-3686 PO; -LISI-604 PO; +OLAN10TA19 PO; +WOOL454C TP
[2019-07-29] MEDS ORDERED: vancomycin/NS 1 GM ADD-VANTAGE 250 ML IV ONE (12:55)
--- NOTE | 2019-07-29 12:56 | NUR ---
CALLED PT [facility] FOR TAMMY, IT IS DISCONNECTED, CALLED NUMBER FOR ESTEVAN [phone] AND [phone] LEFT MESS TO CALL ER NO ANS ON EITHER NUMBER
--- NOTE | 2019-07-29 13:00 | NUR ---
SPOKE TO ESTEVAN KHAN, SHE IS ON HER WAY
[2019-07-29 13:30] LABS: CLARITY,URINE SLIGHTLY CLOUDY (Clear); COLOR,URINE YELLOW (Yellow); GLUCOSE, URINE NEGATIVE (Neg); KETONES,URINE NEGATIVE (Neg); LEUKOCYTE ESTERASE ,URINE NEGATIVE (Neg); NITRITES, URINE NEGATIVE (Neg); OCCULT BLOOD,URINE NEGATIVE (Neg); PH,URINE 5.5 (4.8-8.0); PROTEIN,URINE NEGATIVE (Neg); UROBILINOGEN,URINE 0.2 E.U/dL (0.2-1.0)
[2019-07-29] MEDS: piperacillin/tazo 3.375gm/50ml 50 ML IV ONE ×2 (13:30→13:50)
[2019-07-29 13:35] LABS: UA COLLECTION TYPE STRAIGHT CATH
[2019-07-29 13:37] LABS: HYALINE CASTS 0-3 /LPF (NEGATIVE); MUCUS STRANDS FEW /LPF (Neg); SQUAMOUS EPITHELIAL CELL,UR FEW /LPF (FEW); TRANSITIONAL EPI CELLS,URINE FEW /HPF
[2019-07-29 13:38] LABS: AMORPHOUS URATES 1+; BACTERIA,URINE NONE SEEN /HPF (Neg); RBC,URINE NONE SEEN /HPF (0-2); RENAL CELLS, URINE FEW /HPF; WBC,URINE 0-4 /HPF (0-4)
[2019-07-29 13:55] LABS: ABG BASE EXCESS -3.8 mmol/L (-2.0-3.0); ABG HCO3 19.8 mmol/L (22.0-26.0); ABG OXYGEN SATURATION 71.4 % (95-98); ABG PCO2 (T) 31.1 mmHg (35.0-45.0); ABG PH (T) 7.421 (7.350-7.450); ABG PO2 (T) 41.2 mmHg (83-108); FMetHb 0.2 % (0.3-1.12); FO2Hb 70.5 % (94-100); RESPIRATORY RATE 24 b/min; RESPIRATORY RATE (OBSERVED) 24 b/min; TOTAL HEMOGLOBIN 11.7 G/dl (14.0-17.9)
[2019-07-29 14:28] LABS: ALANINE AMINOTRANSFERASE 20 U/L (12-78); ALBUMIN 2.3 G/DL (3.4-5.0); ALBUMIN/GLOBULIN RATIO 0.6 (1.1-1.5); ALKALINE PHOSPHATASE 84 IU/L (46-116); ANION GAP 9 (8-16); ASPARTATE AMINO TRANSFERASE 40 U/L (10-37); BILIRUBIN,TOTAL 0.7 MG/DL (0.1-1.0); BLOOD UREA NITROGEN 18 MG/DL (7-18); BUN/CREATININE RATIO 13.7 (5.4-32.0); CALCIUM 7.7 MG/DL (8.5-10.1); CHLORIDE 102 MMOL/L (99-107); CREATININE 1.31 MG/DL (0.60-1.10); GLUCOSE 147 MG/DL (70-104); MAGNESIUM 1.2 MG/DL (1.5-2.4); SODIUM 135 MMOL/L (135-145); TOTAL CARBON DIOXIDE 24.4 MMOL/L (24-32); TOTAL PROTEIN 6.3 G/DL (6.4-8.2); eGFR 56 ML/MIN
--- NOTE | 2019-07-29 14:30 | NUR ---
RCVD CALL FROM PICC NURSE, SHE IS TIED UP IN ICU, SAYS WILL SEE PT WHEN HE GETS UPSTAIRS TO THE ICU, MADE PROVIDER ROSA MARIA AWARE
--- NOTE | 2019-07-29 15:22 | NUR ---
AWITING BED, PT REMAINS ON BIPAP, AT BEDSIDE,
--- NOTE | 2019-07-29 15:37 | NUR ---
RCVD CALL FROM EZEKIEL AT [facility], PT CHECKING ON STATUS
[2019-07-29] MEDS ORDERED: insulin regular, human 10 units/0.1 ml syringe IV ONE (15:40)
[2019-07-29] MEDS ORDERED: dextrose 50%-water 50ml dispensing syringe IV ONE (15:40)
[2019-07-29 16:50] VITALS: BP 132/104
== END 2019-07-29 16:53 ==
LOC: ER 12:35
DX: S30.1XXA Contusion of abdominal wall, initial encounter (principal); J96.02 Acute respiratory failure with hypercapnia; E87.5 Hyperkalemia; G93.41 Metabolic encephalopathy; I25.10 Atherosclerotic heart disease of native coronary artery without angina pectoris; I11.0 Hypertensive heart disease with heart failure; I50.9 Heart failure, unspecified; E78.00 Pure hypercholesterolemia, unspecified; I25.2 Old myocardial infarction; Z98.61 Coronary angioplasty status; Z98.890 Other specified postprocedural states; Z88.6 Allergy status to analgesic agent; Z88.5 Allergy status to narcotic agent; Z88.8 Allergy status to other drugs, medicaments and biological substances; Z79.82 Long term (current) use of aspirin; Z79.899 Other long term (current) drug therapy; X58.XXXA Exposure to other specified factors, initial encounter; Y93.89 Activity, other specified; Y92.89 Other specified places as the place of occurrence of the external cause; Y99.8 Other external cause status
CPT/HCPCS: 36415; 36600; 70450; 71045; 74176; 80053; 81001; 82803; 83605; 83735; 83880; 84145; 84484; 85018; 87040; 93005; 94660; 96365; 96375; 99291; J1815; J2543; J3370; 94760

== ENCOUNTER 2019-08-24 17:44 | Outpatient (CLI) | payer MEDICARE, BC ==
[~2019-08-24 17:44] MED LIST changes: +FAMO-49; -FAMO20TA20
[2019-08-25 12:01] LABS: C DIFF ANTIGEN NEGATIVE (NEGATIVE); C DIFF SPECIMEN=DIARRHEA? ACCEPTABLE; C DIFFICILE TOXINS A&B NEGATIVE (Neg)
[2019-09-06] MEDS ORDERED: CLIN150C2 PO (16:52)
== END 2019-08-24 23:59 | disposition home or self-care (01) ==
LOC: LAB SPEC 17:44
PROVIDERS: ATTEND Specialist
DX: I11.0 Hypertensive heart disease with heart failure (principal); I25.2 Old myocardial infarction; I50.9 Heart failure, unspecified; E11.9 Type 2 diabetes mellitus without complications; Z88.5 Allergy status to narcotic agent
CPT/HCPCS: 87324; 87449

== ENCOUNTER 2019-09-02 12:58 | Outpatient (CLI) | payer OTHER ==
[~2019-09-02 12:58] MED LIST changes: -FAMO-49; +FAMO20TA20
== END 2019-09-02 23:59 | disposition home or self-care (01) ==
LOC: 64 CT 12:58
PROVIDERS: ATTEND Internal Medicine
DX: N28.89 Other specified disorders of kidney and ureter (principal); N28.9 Disorder of kidney and ureter, unspecified; N28.1 Cyst of kidney, acquired; I51.7 Cardiomegaly; K75.3 Granulomatous hepatitis, not elsewhere classified; Z94.0 Kidney transplant status
CPT/HCPCS: 74176

== ENCOUNTER 2020-05-22 15:13 | Inpatient (IN) | payer MEDICARE, BC ==
[~2020-05-22] VITALS: Ht 175.3 cm; Wt 82.7 kg
[~2020-05-22 15:13] MED LIST changes: -ASPI-1265 PO; +ASPI81TA47 PO; +CALC-1205 PO; -CALC-995; -CHOL100046 PO; -CLIN300P10 IV; -DOCU250C96 PO; +FAMO-49 PO; -FAMO20TA20; -HYDR-3686 PO; +HYDR-3964 PO; -OLAN10TA19 PO; +TACR1CAP24 PO; -TACR1CAP28 PO; -WOOL454C TP
--- NOTE | 2020-05-22 16:35 | NUR ---
Pt.'s Fabby [phone]
[2020-05-22 17:00] LABS: BASOPHILS % (AUTO) 0 % (0-1); EOSINOPHILS # (AUTO) 0.1 X10'3 (0-0.9); EOSINOPHILS % (AUTO) 0.8 % (0-6); HEMATOCRIT 43.2 % (42.0-52.0); HEMOGLOBIN 13.8 g/dl (14.0-17.9); LYMPHOCYTES # (AUTO) 0.5 X10'3 (1.1-4.8); MEAN CORPUSCULAR HEMOGLOBIN 26.7 PG (27.0-31.0); MEAN CORPUSCULAR VOLUME 83.5 FL (78-98); MEAN PLATELET VOLUME 8.3 FL (7.4-10.4); MONOCYTES # (AUTO) 0.6 X10'3 (0-0.9); MONOCYTES % (AUTO) 7.3 % (2-12); NEUTROPHILS # (AUTO) 7.2 X10'3 (1.8-7.7); NEUTROPHILS % (AUTO) 85.9 % (42-75); PLATELET COUNT 195 X10'3 (140-440); RED BLOOD COUNT 5.17 X10'6 (4.70-6.10); RED CELL DISTRIBUTION WIDTH 20.5 % (11.5-14.5); WHITE BLOOD COUNT 8.4 X10'3 (4.5-11.0)
[2020-05-22 17:07] LABS: ALBUMIN 3.8 G/DL (3.4-5.0); ANION GAP 9 (8-16); BLOOD UREA NITROGEN 44 MG/DL (7-18); BUN/CREATININE RATIO 22.6 (5.4-32.0); CALCIUM 7.9 MG/DL (8.5-10.1); CHLORIDE 103 MMOL/L (99-107); CREATININE 1.95 MG/DL (0.60-1.10); GLUCOSE 124 MG/DL (70-104); SODIUM 137 MMOL/L (135-145); TOTAL CARBON DIOXIDE 25.5 MMOL/L (24-32); eGFR 35 ML/MIN
[2020-05-22 17:15] LABS: POTASSIUM 6.2 MMOL/L (3.5-5.1)
[2020-05-22] MEDS ORDERED: calcium gluconate inj. 2 GM in normal saline 100ml IV soln 80 ML IV ONE (17:30)
[2020-05-22] MEDS ORDERED: albuterol 2.5 MG/3 ML nebule NEB ONE (17:30)
[2020-05-22] MEDS ORDERED: normal saline 1000ml 1,000 ML IV ONE (17:30)
[2020-05-22] MEDS ORDERED: insulin regular, human 10 units/0.1 ml syringe IV ONE (17:30)
[2020-05-22] MEDS ORDERED: dextrose 50%-water 50ml dispensing syringe IV ONE (17:30)
[2020-05-22 17:39] LABS: CLARITY,URINE CLEAR (Clear); COLOR,URINE STRAW (Yellow); GLUCOSE, URINE NEGATIVE (Neg); KETONES,URINE NEGATIVE (Neg); LEUKOCYTE ESTERASE ,URINE NEGATIVE (Neg); NITRITES, URINE NEGATIVE (Neg); OCCULT BLOOD,URINE NEGATIVE (Neg); PROTEIN,URINE NEGATIVE (Neg); UROBILINOGEN,URINE 0.2 E.U/dL (0.2-1.0)
[2020-05-22 17:40] LABS: UA COLLECTION TYPE CLN CATCH MIDSTREAM
[2020-05-22] MEDS ORDERED: CALCIUM GLUC 1gm/50ml NACL,iso 100 ML IV ONE (17:41)
[2020-05-22] MEDS ORDERED: CALCIUM GLUC 1gm/50ml NACL,iso 50 ML IV ONE (17:41)
[2020-05-22 17:43] LABS: ANISOCYTOSIS 3+; PLATELET ESTIMATE NORMAL
[2020-05-22 17:44] LABS: ELLIPTOCYTES 1+
[2020-05-22 17:45] LABS: BURR CELLS 1+; POIKILOCYTOSIS 1+
[2020-05-22] MEDS ORDERED: bisacodyl 10mg suppository rectal RC PRN (17:50)
[2020-05-22] MEDS ORDERED: magnesium Cl slow-release 64mg tablet PO PRN (17:50)
[2020-05-22] MEDS ORDERED: mag hydrox/Alum hydrox/simeth 30ml oral suspension PO PRN (17:50)
[2020-05-22] MEDS ORDERED: magnesium 4gm in 100ml NS 100 ML IV PRN (17:50)
[2020-05-22] MEDS ORDERED: morphine 2 MG/ML inj. syringe IV PRN ×2 (17:50)
[2020-05-22] MEDS ORDERED: magnesium hydroxide 30ml (MOM) UD suspension PO PRN (17:50)
[2020-05-22] MEDS ORDERED: magnesium 2GM in 50ml NS 50 ML IV PRN (17:50)
[2020-05-22] MEDS ORDERED: acetaminophen 650mg rectal suppository RC PRN (17:50)
[2020-05-22] MEDS ORDERED: acetaminophen 325mg tablet PO PRN ×2 (17:50)
[2020-05-22] MEDS ORDERED: ondansetron/PF 4mg/2ml inj IV PRN (17:50)
[2020-05-22] MEDS ORDERED: POTA10CA44 PO (17:55)
[2020-05-22] MEDS ORDERED: HYDR-3686 PO (17:55)
[2020-05-22] MEDS ORDERED: FURO40TA4 PO (17:55)
[2020-05-22] MEDS ORDERED: UMEC1DIS IH (17:55)
[2020-05-22] MEDS ORDERED: METF-950 PO (17:55)
[2020-05-22] MEDS: normal saline 1000ml 1,000 ML IV SCH (19:17)
[2020-05-22 19:25] VITALS: BP 152/94
[2020-05-22] MEDS ORDERED: temazepam 15mg capsule PO PRN (21:00)
[2020-05-22] MEDS: ULORIC 40 MG PO SCH (21:00)
[2020-05-22] MEDS: tacrolimus anhydrous 1mg capsule PO SCH (21:31)
[2020-05-22] MEDS: heparin, porcine 5000 units/ml vial SQ SCH (21:31)
[2020-05-22] MEDS: clopidogrel 75mg tablet PO SCH (21:32)
[2020-05-22] MEDS: atorvastatin 10mg tablet PO SCH (21:32)
[2020-05-22] MEDS: HYDROcodone/acetaminophen 5mg/325mg tablet PO PRN (21:51)
[2020-05-22 22:00] VITALS: BP 130/86
[2020-05-23 02:00] VITALS: BP 119/74
[2020-05-23] MEDS: normal saline 1000ml 1,000 ML IV SCH ×2 (03:48→09:41)
--- NOTE | 2020-05-23 04:32 | NUR ---
Patient is not in the mood to complete the orthostatic vitals. will pass it to the dayshift to complete the orthostatic vitals
--- NOTE | 2020-05-23 06:15 | NUR ---
Patient in room MED 310. I have received report from SERGIO Valerio and had the opportunity to ask questions and assume patient care.
--- NOTE | 2020-05-23 06:27 | NUR ---
Problems reprioritized. Patient report given to Khalif, questions answered & plan of care reviewed with .
[2020-05-23 06:34] LABS: HEMATOCRIT 41.2 % (42.0-52.0); MEAN CORPUSCULAR HEMOGLOBIN 26.2 PG (27.0-31.0); MEAN CORPUSCULAR HGB CONC 31.5 g/dL (33.0-36.5); MEAN CORPUSCULAR VOLUME 83.3 FL (78-98); MEAN PLATELET VOLUME 8.8 FL (7.4-10.4); PLATELET COUNT 193 X10'3 (140-440); RED BLOOD COUNT 4.95 X10'6 (4.70-6.10); RED CELL DISTRIBUTION WIDTH 20.6 % (11.5-14.5); WHITE BLOOD COUNT 7.3 X10'3 (4.5-11.0)
[2020-05-23 06:58] LABS: ALBUMIN 3.5 G/DL (3.4-5.0); ANION GAP 13 (8-16); BLOOD UREA NITROGEN 34 MG/DL (7-18); BUN/CREATININE RATIO 20.6 (5.4-32.0); CALCIUM 7.5 MG/DL (8.5-10.1); CHLORIDE 107 MMOL/L (99-107); CREATININE 1.65 MG/DL (0.60-1.10); GLUCOSE 76 MG/DL (70-104); MAGNESIUM 1.7 MG/DL (1.5-2.4); PHOSPHORUS 3.8 MG/DL (2.3-4.5); POTASSIUM 5.2 MMOL/L (3.5-5.1); SODIUM 142 MMOL/L (135-145); TOTAL CARBON DIOXIDE 21.9 MMOL/L (24-32); eGFR 42 ML/MIN
[2020-05-23 07:19] VITALS: BP 131/88
[2020-05-23] MEDS: ANORO ELLIPTA IH SCH (08:00)
[2020-05-23] MEDS: tacrolimus anhydrous 1mg capsule PO SCH ×2 (08:14→19:28)
[2020-05-23] MEDS: levetiracetam 250mg tablet PO SCH (08:14)
[2020-05-23] MEDS: folic acid 0.4mg tablet PO SCH (08:14)
[2020-05-23] MEDS: aspirin 81mg tablet.DR PO SCH (08:14)
[2020-05-23] MEDS: heparin, porcine 5000 units/ml vial SQ SCH ×2 (08:14→19:28)
[2020-05-23] MEDS: hydrOXYzine 25 MG tablet PO SCH (08:14)
[2020-05-23] MEDS: predniSONE 5mg tablet PO SCH (08:14)
[2020-05-23] MEDS: calcium carbonate/vitamin D3 tablet PO SCH (08:14)
[2020-05-23] MEDS: HYDROcodone/acetaminophen 5mg/325mg tablet PO PRN (09:45)
[2020-05-23 11:00] VITALS: BP 140/93
[2020-05-23] MEDS: sodium bicarbonate (8.4%) inj. 100 MEQ in dextrose 5%-water 1,000 ML IV SCH (15:55)
[2020-05-23 18:00] VITALS: BP 153/104
--- NOTE | 2020-05-23 18:10 | NUR ---
Problems reprioritized. Patient report given, questions answered & plan of care reviewed with lisa conway.
--- NOTE | 2020-05-23 18:20 | NUR ---
Patient in room MED 310. I have received report from Khalif, and had the opportunity to ask questions and assume patient care.
[2020-05-23] MEDS: clopidogrel 75mg tablet PO SCH (19:27)
[2020-05-23] MEDS: atorvastatin 10mg tablet PO SCH (19:27)
[2020-05-23] MEDS: HYDROcodone/acetaminophen 10/325mg tab PO PRN (19:30)
[2020-05-23] MEDS: ULORIC 40 MG PO SCH (21:00)
[2020-05-23 22:00] VITALS: BP 132/88
[2020-05-24 02:00] VITALS: BP 146/104
[2020-05-24] MEDS: sodium bicarbonate (8.4%) inj. 100 MEQ in dextrose 5%-water 1,000 ML IV SCH (02:05)
[2020-05-24 05:18] LABS: HEMATOCRIT 42.3 % (42.0-52.0); HEMOGLOBIN 13.6 g/dl (14.0-17.9); MEAN CORPUSCULAR HEMOGLOBIN 26.8 PG (27.0-31.0); MEAN CORPUSCULAR HGB CONC 32.1 g/dL (33.0-36.5); MEAN CORPUSCULAR VOLUME 83.4 FL (78-98); MEAN PLATELET VOLUME 8.6 FL (7.4-10.4); PLATELET COUNT 196 X10'3 (140-440); RED BLOOD COUNT 5.07 X10'6 (4.70-6.10); RED CELL DISTRIBUTION WIDTH 20.2 % (11.5-14.5); WHITE BLOOD COUNT 7.2 X10'3 (4.5-11.0)
[2020-05-24 05:26] LABS: ALBUMIN 3.7 G/DL (3.4-5.0); ANION GAP 9 (8-16); BLOOD UREA NITROGEN 21 MG/DL (7-18); CHLORIDE 103 MMOL/L (99-107); GLUCOSE 122 MG/DL (70-104); MAGNESIUM 1.5 MG/DL (1.5-2.4); PHOSPHORUS 3.3 MG/DL (2.3-4.5); POTASSIUM 4.7 MMOL/L (3.5-5.1); SODIUM 139 MMOL/L (135-145); TOTAL CARBON DIOXIDE 26.7 MMOL/L (24-32); eGFR 51 ML/MIN
[2020-05-24 06:00] VITALS: BP 140/95
--- NOTE | 2020-05-24 06:21 | NUR ---
Problems reprioritized. Patient report given Pat-RN, questions answered & plan of care reviewed with .
[2020-05-24 08:00] VITALS: BP_SYST 141; BP_SYST 148; BP_SYST 154; BP_DIAS 100; BP_DIAS 94; BP_DIAS 95
[2020-05-24] MEDS: ANORO ELLIPTA IH SCH (08:00)
[2020-05-24] MEDS: levetiracetam 250mg tablet PO SCH (08:41)
[2020-05-24] MEDS: predniSONE 5mg tablet PO SCH (08:42)
[2020-05-24] MEDS: hydrOXYzine 25 MG tablet PO SCH (08:42)
[2020-05-24] MEDS: calcium carbonate/vitamin D3 tablet PO SCH (08:42)
[2020-05-24] MEDS: aspirin 81mg tablet.DR PO SCH (08:42)
[2020-05-24] MEDS: HYDROcodone/acetaminophen 10/325mg tab PO PRN (08:43)
[2020-05-24] MEDS: folic acid 0.4mg tablet PO SCH (08:43)
[2020-05-24] MEDS: heparin, porcine 5000 units/ml vial SQ SCH (08:44)
[2020-05-24] MEDS: tacrolimus anhydrous 1mg capsule PO SCH (08:45)
[2020-05-24 11:00] VITALS: BP 154/94
[2020-05-24] MEDS ORDERED: ipratropium 0.5 MG/2.5ML nebule IH PRN (14:35)
[2020-05-24] MEDS ORDERED: albuterol 2.5 MG/3 ML nebule NEB PRN (14:35)
== END 2020-05-24 15:15 | disposition home or self-care (01) | DRG 291 ==
LOC: ER 15:13 → ED HOLD 17:48 → EDBEDREQ 18:35 → MED 3N 19:25
PROVIDERS: ADMIT Family Medicine; ATTEND Family Medicine
DX: I13.0 Hypertensive heart and chronic kidney disease with heart failure and stage 1 through stage 4 chronic kidney disease, or unspecified chronic kidney disease (principal); N17.0 Acute kidney failure with tubular necrosis; I48.92 Unspecified atrial flutter; E87.2 Acidosis; T86.19 Other complication of kidney transplant; E87.5 Hyperkalemia; R00.1 Bradycardia, unspecified; E78.00 Pure hypercholesterolemia, unspecified; E78.5 Hyperlipidemia, unspecified; G40.909 Epilepsy, unspecified, not intractable, without status epilepticus; I25.10 Atherosclerotic heart disease of native coronary artery without angina pectoris; I44.0 Atrioventricular block, first degree; I48.91 Unspecified atrial fibrillation; N18.3 Chronic kidney disease, stage 3 (moderate); I50.9 Heart failure, unspecified; I95.1 Orthostatic hypotension; I73.9 Peripheral vascular disease, unspecified; I25.2 Old myocardial infarction; Z80.8 Family history of malignant neoplasm of other organs or systems; Z83.3 Family history of diabetes mellitus; Z86.73 Personal history of transient ischemic attack (TIA), and cerebral infarction without residual deficits; Z95.1 Presence of aortocoronary bypass graft; Z95.2 Presence of prosthetic heart valve; Z88.8 Allergy status to other drugs, medicaments and biological substances; Z79.899 Other long term (current) drug therapy
CPT/HCPCS: 36415; 76775; 80048; 80197; 81003; 83735; 84100; 84132; 85008; 85025; 85027; 87081; 93005; 94640; 94760; 97161; 97530; 99285; G0378; J1644; J1815; J7030; J7512; Q0177